=== PATIENT | male | born 1940 | race Caucasian/White ===

== ENCOUNTER 2018-03-09 00:08 | Inpatient (IN) | payer MEDICARE ==
[2018-03-09] MEDS ORDERED: ALBUTEROL 2.5 MG/3 ML NEB SOL ONE (00:27)
[2018-03-09] MEDS ORDERED: IPRATROPIUM BROM 0.5MG/2.5ML ONE (00:27)
--- NOTE | 2018-03-09 00:45 | EDPHYS ---
Physician Documentation [facility] Name: Josue Temple Age: 77 yrs Sex: Male : 1940 Arrival Date: 03/09/2018 Time: 00:10 Bed 3 Private MD: ED Physician Chris Moran HPI: 03/09 00:24 This 77 yrs old Male presents to ER via Wheelchair with complaints of mamie Shortness Of Breath. 00:24 The patient has shortness of breath at rest, with light activity. Onset: The mamie symptoms/episode began/occurred 2 day(s) ago. Duration: The symptoms are continuous, and are steadily getting worse. The patient's shortness of breath has no apparent modifying factors. Associated signs and symptoms: The patient has no apparent associated signs or symptoms. Severity of symptoms: At their worst the symptoms were mild. The patient has not experienced similar symptoms in the past. Historical: - Allergies: 00:26 Banana; ak1 - Home Meds: 00:26 Unable to obtain [Active]; ak1 - PMHx: 00:26 COPD; ak1 - PSHx: 00:26 Unable to obtain; ak1 - Immunization history:: Adult Immunizations unknown. - Social history:: Smoking status: Patient/guardian denies using tobacco, but has a distant history of tobacco abuse. - Family history:: not pertinent. - Ebola Screening: : No symptoms or risks identified at this time. ROS: 00:25 Constitutional: Negative for fever, chills, and weight loss, Eyes: Negative for injury, mamie pain, redness, and discharge, ENT: Negative for injury, pain, and discharge, Neck: Negative for injury, pain, and swelling, Cardiovascular: Negative for chest pain, palpitations, and edema, Abdomen/GI: Negative for abdominal pain, nausea, vomiting, diarrhea, and constipation, Back: Negative for injury and pain, : Negative for injury, bleeding, discharge, and swelling, MS/Extremity: Negative for injury and deformity, Skin: Negative for injury, rash, and discoloration, Neuro: Negative for headache, weakness, numbness, tingling, and seizure, Psych: Negative for depression, anxiety, suicide ideation, homicidal ideation, and hallucinations, Allergy/Immunology: Negative for hives, rash, and allergies, Endocrine: Negative for neck swelling, polydipsia, polyuria, polyphagia, and marked weight changes, Hematologic/Lymphatic: Negative for swollen nodes, abnormal bleeding, and unusual bruising. 00:25 Respiratory: Positive for cough, shortness of breath, wheezing, inspiratory, expiratory. Exam: 00:25 Constitutional: This is a well developed, well nourished patient who is awake, alert, mamie and in no acute distress. Head/Face: Normocephalic, atraumatic. Eyes: Pupils equal round and reactive to light, extra-ocular motions intact. Lids and lashes normal. Conjunctiva and sclera are non-icteric and not injected. Cornea within normal limits. Periorbital areas with no swelling, redness, or edema. ENT: Nares patent. No nasal discharge, no septal abnormalities noted. Tympanic membranes are normal and external auditory canals are clear. Oropharynx with no redness, swelling, or masses, exudates, or evidence of obstruction, uvula midline. Mucous membranes moist. Neck: Trachea midline, no thyromegaly or masses palpated, and no cervical lymphadenopathy. Supple, full range of motion without nuchal rigidity, or vertebral point tenderness. No Meningismus. Chest/axilla: Normal chest wall appearance and motion. Nontender with no deformity. No lesions are appreciated. Cardiovascular: Regular rate and rhythm with a normal S1 and S2. No gallops, murmurs, or rubs. Normal PMI, no JVD. No pulse deficits. Abdomen/GI: Soft, non-tender, with normal bowel sounds. No distension or tympany. No guarding or rebound. No evidence of tenderness throughout. Back: No spinal tenderness. No costovertebral tenderness. Full range of motion. Male : Normal genitalia with no discharge or lesions. Skin: Warm, dry with normal turgor. Normal color with no rashes, no lesions, and no evidence of cellulitis. MS/ Extremity: Pulses equal, no cyanosis. Neurovascular intact. Full, normal range of motion. Neuro: Awake and alert, GCS 15, oriented to person, place, time, and situation. Cranial nerves II-XII grossly intact. Motor strength 5/5 in all extremities. Sensory grossly intact. Cerebellar exam normal. Normal gait. Psych: Awake, alert, with orientation to person, place and time. Behavior, mood, and affect are within normal limits. 00:25 Respiratory: moderate respiratory distress is noted, Respirations: labored breathing, that is moderate, grunting, pursed lip breathing, intercostal retractions, Breath sounds: bronchial sounds, decreased breath sounds, rhonchi, wheezing: expiratory Respiratory rate: 30 Vital Signs: 00:10 BP 142 / 94; Pulse 95; Resp 36; Temp 98.1; Pulse Ox 63% on 3 lpm NC; Weight 68.04 kg ak1 (R); Height 5 ft. 8 in. (172.72 cm) (R); Pain 0/10; 00:18 BP 126 / 87; Pulse 96; Resp 29; Pulse Ox 100% on 80% BiPAP; Pain 0/10; ak1 01:41 BP 108 / 79; Pulse 92; Resp 28; Temp 98.2(TE); Pulse Ox 100% on 30% BiPAP; Pain 0/10; ak1 00:10 Body Mass Index 22.81 (68.04 kg, 172.72 cm) ak1 MDM: 00:17 Patient medically screened. [facility] 00:25 Data reviewed: vital signs, nurses notes, lab test result(s), EKG, radiologic studies, [facility] plain films. 03/09 00:17 Order name: Basic Metabolic Panel [facility] 03/09 00:17 Order name: BNP [facility] 03/09 00:17 Order name: CBC with Diff; Complete Time: 01:20 [facility] 03/09 00:17 Order name: Ckmb [facility] 03/09 00:17 Order name: CPK [facility] 03/09 00:17 Order name: LFT's [facility] 03/09 00:17 Order name: Magnesium [facility] 03/09 00:17 Order name: PT-INR; Complete Time: 01:20 [facility] 03/09 00:17 Order name: Ptt, Activated; Complete Time: 01:20 [facility] 03/09 00:17 Order name: Troponin (emerg Dept Use Only) [facility] 03/09 00:17 Order name: Blood Culture Adult (2) [facility] 03/09 00:17 Order name: ABG; Complete Time: 01:20 [facility] 03/09 00:17 Order name: Lipase [facility] 03/09 00:17 Order name: Procalcitonin [facility] 03/09 00:17 Order name: XRAY Chest (1 view) [facility] 03/09 00:24 Order name: BIPAP [facility] 03/09 00:39 Order name: Flu mamie 03/09 01:16 Order name: Basic Metabolic Panel [facility] 03/09 01:16 Order name: Basic Metabolic Panel [facility] 03/09 01:16 Order name: CBC with Automated Diff [facility] 03/09 01:16 Order name: CBC with Automated Diff [facility] 03/09 01:16 Order name: Sputum Culture [facility] 03/09 01:49 Order name: Urine Dipstick--Ancillary (enter results) [facility] 03/09 00:17 Order name: EKG; Complete Time: 00:18 [facility] 03/09 00:17 Order name: Cardiac monitoring; Complete Time: 00: [facility] 03/09 00:17 Order name: EKG - Nurse/Tech; Complete Time: 00: [facility] 03/09 00:17 Order name: IV Saline Lock; Complete Time: 00: [facility] 03/09 00:17 Order name: Labs collected and sent; Complete Time: 00: [facility] 03/09 00:17 Order name: O2 Per Protocol; Complete Time: 00: [facility] 03/09 00:17 Order name: O2 Sat Monitoring; Complete Time: 00: [facility] 03/09 00:17 Order name: Urine Dipstick-Ancillary (obtain specimen); Complete Time: 01:43 [facility] 03/09 00:49 Order name: CONS Physician Consult [facility] 03/09 01:16 Order name: Regular [facility] Administered Medications: 00:33 Drug: Xopenex 3.75 mg Route: Inhalation; bb 00:33 Drug: AtroVENT Aerosol 0.5 mg Route: Inhalation; bb 00:56 Drug: levofloxacin 500 mg Volume: 100 ml; Route: IVPB; Infused Over: 60 mins; Site: bb left antecubital; 01:45 Follow up: IV Status: Completed infusion ak1 00:56 Drug: SOLU-Medrol 125 mg Route: IVP; Site: left antecubital; bb 01:43 Follow up: Response: No adverse reaction ak1 00:57 Drug: Pepcid 20 mg Route: IVP; Site: left antecubital; bb 01:42 Follow up: Response: No adverse reaction ak1 00:57 Drug: Decadron - Dexamethasone 10 mg Route: IVP; Site: left antecubital; bb 01:42 Follow up: Response: No adverse reaction ak1 01:45 Drug: Magnesium Sulfate 2 grams Route: IVPB; Infused Over: 2 hrs; Site: left ak1 antecubital; 01:54 Follow up: IV Status: Infusion continued upon admission ak1 Disposition: 03/09/18 00:44 Hospitalization ordered by Morteza Layton for Inpatient Admission. Preliminary diagnosis are Chronic obstructive pulmonary disease with (acute) exacerbation, Dyspnea, Dyspnea, unspecified, Hypoxemia. - Bed requested for Telemetry/MedSurg (Inpatient). - Status is Inpatient Admission. ak1 - Condition is Fair. - Problem is new. - Symptoms have improved. UTI on Admission? No Signatures: Dispatcher [employer] EDMS Iftikhar Gutierrez rg2 Barbara Donnelly RN RN Chris Hong MD MD cha Ballard, Brenda, RN RN Yolande Alfaro RN RN ak1 Corrections: (The following items were deleted from the chart) 01:39 00:44 Hospitalization Ordered by Morteza Layton MD for Inpatient Admission. Preliminary diagnosis is Chronic obstructive pulmonary disease with (acute) exacerbation; Dyspnea; Dyspnea, unspecified; Hypoxemia. Bed requested for Telemetry/MedSurg (Inpatient). Status is Inpatient Admission. Condition is Fair. Problem is new. Symptoms have improved. UTI on Admission? No. mamie 02:04 01:39 03/09/2018 00:44 Hospitalization Ordered by Morteza Layton MD for Inpatient ak1 Admission. Preliminary diagnosis is Chronic obstructive pulmonary disease with (acute) exacerbation; Dyspnea; Dyspnea, unspecified; Hypoxemia. Bed requested for Telemetry/MedSurg (Inpatient). Status is Inpatient Admission. Condition is Fair. Problem is new. Symptoms have improved. UTI on Admission? No. kl
--- NOTE | 2018-03-09 00:45 | ER ---
Nurse's Notes [facility] Name: Josue Temple Age: 77 yrs Sex: Male : 1940 Arrival Date: 03/09/2018 Time: 00:10 Bed 3 Private MD: Diagnosis: Chronic obstructive pulmonary disease with (acute) exacerbation;Dyspnea;Dyspnea, unspecified;Hypoxemia Presentation: 03/09 00:21 Presenting complaint: Patient states: SOB "all day" pt uses 3L NC at home. pt at 63% on ak1 home oxygen 3L NC upon arrival to ER3. Transition of care: patient was not received from another setting of care. Onset of symptoms was March 08, 2018. Risk Assessment: Do you want to hurt yourself or someone else? Patient reports no desire to harm self or others. Initial Sepsis Screen: Does the patient meet any 2 criteria? No. Patient's initial sepsis screen is negative. Does the patient have a suspected source of infection? No. Patient's initial sepsis screen is negative. Care prior to arrival: None. 00:21 Method Of Arrival: Wheelchair ak1 00:21 Acuity: HILLARY 2 ak1 Triage Assessment: 00:26 General: Appears distressed, Behavior is calm, cooperative. Pain: Denies pain. EENT: No ak1 signs and/or symptoms were reported regarding the EENT system. Neuro: No deficits noted. Cardiovascular: No deficits noted. Respiratory: Reports shortness of breath at rest on exertion air hunger labored breathing since this morning Airway is patent Respiratory effort is labored, gasping, with nasal flaring, with retractions, Onset: The symptoms/episode began/occurred this morning, the patient has severe shortness of breath. GI: No signs and/or symptoms were reported involving the gastrointestinal system. : No signs and/or symptoms were reported regarding the genitourinary system. Derm: No signs and/or symptoms reported regarding the dermatologic system. Musculoskeletal: No signs and/or symptoms reported regarding the musculoskeletal system. Historical: - Allergies: 00: Banana; ak1 - Home Meds: : Unable to obtain [Active]; ak1 - PMHx: : COPD; ak1 - PSHx: : Unable to obtain; ak1 - Immunization history:: Adult Immunizations unknown. - Social history:: Smoking status: Patient/guardian denies using tobacco, but has a distant history of tobacco abuse. - Family history:: not pertinent. - Ebola Screening: : No symptoms or risks identified at this time. Screenin:31 Abuse screen: Denies threats or abuse. Denies injuries from another. Nutritional ak1 screening: No deficits noted. Tuberculosis screening: No symptoms or risk factors identified. Fall Risk None identified. Assessment: 00:31 Cardiovascular: Rhythm is regular. Respiratory: Airway is patent Breath sounds with ak1 rhonchi. 00:34 Respiratory: Airway is patent. ak1 01:40 Reassessment: Bipap oxygen decreased to 30% by RT. ak1 Vital Signs: 00:10 BP 142 / 94; Pulse 95; Resp 36; Temp 98.1; Pulse Ox 63% on 3 lpm NC; Weight 68.04 kg ak1 (R); Height 5 ft. 8 in. (172.72 cm) (R); Pain 0/10; 00:18 BP 126 / 87; Pulse 96; Resp 29; Pulse Ox 100% on 80% BiPAP; Pain 0/10; ak1 01:41 BP 108 / 79; Pulse 92; Resp 28; Temp 98.2(TE); Pulse Ox 100% on 30% BiPAP; Pain 0/10; ak1 00:10 Body Mass Index 22.81 (68.04 kg, 172.72 cm) ak1 ED Course: 00:10 Patient arrived in ED. rg2 00:17 Chris Moran MD is Attending Physician. mamie 00:18 Arm band placed on Patient placed in an exam room, on a stretcher, on oxygen, on ak1 court recording monitor, on pulse oximetry. EKG completed in triage. Results shown to MD. 00:20 Yolande Cho, RN is Primary Nurse. ak1 00:23 Triage completed. ak1 00:30 Initial lab(s) drawn, by ED staff, sent to lab. First set of blood cultures drawn ak1 Second set of blood cultures drawn EKG done, by ED staff, reviewed by Chris Moran MD X-ray(s) taken. 00:32 Patient has correct armband on for positive identification. Placed in gown. Bed in low ak1 position. Call light in reach. Side rails up X2. Adult w/ patient. manager monitoring on. Pulse ox on. NIBP on. 00:32 Inserted saline lock: in left antecubital area, using aseptic technique. ,using aseptic ak1 technique. placed by Martha Dawson RN Blood collected. O2 via bipap. Ipap 14, Epap 6, rate of 14. 60% oxygen. 00:34 X-ray completed. Portable x-ray completed in exam room. Patient tolerated procedure kw well. 00:35 XRAY Chest (1 view) In Process Unspecified. EDMS 00:40 Morteza Layton MD is Hospitalizing Provider. mamie 00:57 Flu Sent. bb 01:41 No provider procedures requiring assistance completed. Patient admitted, IV remains in ak1 place. Administered Medications: 00:33 Drug: Xopenex 3.75 mg Route: Inhalation; bb 00:33 Drug: AtroVENT Aerosol 0.5 mg Route: Inhalation; bb 00:56 Drug: levofloxacin 500 mg Volume: 100 ml; Route: IVPB; Infused Over: 60 mins; Site: bb left antecubital; 01:45 Follow up: IV Status: Completed infusion ak1 00:56 Drug: SOLU-Medrol 125 mg Route: IVP; Site: left antecubital; bb 01:43 Follow up: Response: No adverse reaction ak1 00:57 Drug: Pepcid 20 mg Route: IVP; Site: left antecubital; bb 01:42 Follow up: Response: No adverse reaction ak1 00:57 Drug: Decadron - Dexamethasone 10 mg Route: IVP; Site: left antecubital; bb 01:42 Follow up: Response: No adverse reaction ak1 01:45 Drug: Magnesium Sulfate 2 grams Route: IVPB; Infused Over: 2 hrs; Site: left ak1 antecubital; 01:54 Follow up: IV Status: Infusion continued upon admission ak1 Outcome: 00:44 Decision to Hospitalize by Provider. mamie 01:42 Condition: improved ak1 01:42 Instructed on the need for admit. 02:01 Admitted to Med/surg accompanied by tech, via stretcher, room 422, with oxygen, with ak1 chart, Report called to Ami SOTOMAYOR 02:04 Patient left the ED. ak1 Signatures: Dispatcher [employer] EDMN Iftikhar Gutierrez 2 Chris Moran MD MD cha Ballard, Brenda, RN RN bb Alem, Caryn kw Krenek, Yolande, RN RN ak1
[2018-03-09] MEDS ORDERED: DEXAMETHASONE 10 MG/ML VIAL ONE (00:50)
[2018-03-09] MEDS ORDERED: METHYLPREDNISOLONE 125 MG INJ ONE (00:50)
[2018-03-09] MEDS ORDERED: FAMOTIDINE 20 MG/2 ML VIAL IV ONE (00:50)
[2018-03-09] MEDS ORDERED: Levofloxacin500mg IV 500 MG/100 ML BAG IV ONE (00:50)
[2018-03-09 00:52] LABS: Absolute Lymphocytes (CBC) 2.7 K/uL (0.7-4.9); Absolute Monocytes 1.8 K/uL (0.1-1.3); Absolute Neutrophil 12.7 K/uL (1.8-8.0); Basophils % 0.5 % (0-1.3); Eosinophils % 0.6 % (0-4.4); Hematocrit 47.1 % (39.6-49.0); Lymphocytes % 15.8 % (15.3-44.8); MCH 30.7 pg (27.0-35.0); MCV 91.3 fL (80-100); MPV 7.2 fL (7.6-11.3); Monocytes % 10.2 % (3.3-12.3); RBC Red Blood Cell Count 5.16 M/uL (4.33-5.43)
[2018-03-09 00:56] LABS: Protime INR 1.05
[2018-03-09 00:57] LABS: Arterial Blood Carboxyhemoglob 1.1 % (0-1.5); Blood Gas Oxyhemoglobin 97.3 % (94-97); Blood O2 Saturation 99.3 % (92-98.5)
[2018-03-09 01:13] LABS: Potassium 3.8 mEq/L (3.6-5.0)
[2018-03-09] MEDS ORDERED: ONDANSETRON 4 MG/2 ML VIAL IV PRN (01:14)
[2018-03-09] MEDS ORDERED: ACETAMINOPHEN 500 MG TAB PO PRN (01:14)
[2018-03-09 01:19] LABS: Albumin 4.5 g/dL (3.2-5.5); Bilirubin Direct 0.2 mg/dL (0-0.2); Bilirubin Total 1.4 mg/dL (0.3-1.2); Magnesium 1.6 mg/dL (1.8-2.5); Protein, Total 7.6 g/dL (6.0-8.3)
--- NOTE | 2018-03-09 01:25 | P.HP ---
Certification for Inpatient Patient admitted to: Inpatient With expected LOS: >2 Midnights Practitioner: I am a practitioner with admitting privileges, knowledge of patient current condition, hospital course, and medical plan of care. Services: Services provided to patient in accordance with Admission requirements found in Title 42 Section 412.3 of the Code of Federal Regulations Patient History Date of Service: 03/09/18 Reason for admission: COPD exacerbation History of Present Illness: Mr Temple is a 77 years old male with history of COPD, on home oxygen 3L by NM, start feeling progressive SOB since yesterday. He also has productive cough with yellowish secretions. He denied fever or chills. No chest pain either. His O2 Sat at home was 61%. At arrival, the patient was dyspneic, with O2 Sat 63% on RA. WBC elevated 17.4K, lactate and procalcitonin are still pending. CXR shows no obvious infiltrate, awaiting radiologist report. - Past Medical/Surgical History -: COPD Past Surgical History: Reviewed- Non-Contributory - Family History Family History: Reviewed- Non-Contributory - Social History Smoking Status: Former smoker Alcohol use: No CD- Drugs: No Place of Residence: Home Review of Systems 10-point ROS is otherwise unremarkable Physical Examination - Physical Exam General: Alert, In no apparent distress HEENT: Atraumatic, PERRLA, Mucous membr. moist/pink, EOMI, Sclerae nonicteric Neck: Supple, 2+ carotid pulse no bruit, No LAD, Without JVD or thyroid abnormality Respiratory: Diminished, Expiratory wheezes, Rhonchi/gurgles Cardiovascular: Regular rate/rhythm, Normal S1 S2 Gastrointestinal: Normal bowel sounds, No tenderness Musculoskeletal: No tenderness Integumentary: No rashes Neurological: Normal speech, Normal strength at 5/5 x4 extr, Normal tone, Normal affect Lymphatics: No axilla or inguinal lymphadenopathy - Studies Laboratory Data (last 24 hrs) 03/09/18 00:15: PT 12.4, INR 1.05, APTT 27.2 03/09/18 00:15: WBC 17.4 H, Hgb 15.8, Hct 47.1, Plt Count 250 03/09/18 00:15: Sodium 133 L, Potassium 3.8, Glucose 157 H, Lipase 28 Assessment and Plan - Problems (Diagnosis) (1) COPD exacerbation Current Visit: Yes Status: Acute - Plan Mr Temple will be admitted to the hospital due to COPD exacerbation. This may be due to early pneumonia vs acute bronchitis. Will order empiric treatement with Rocephin and Azithromycin. Scheduled breathing treatment and IV steroids. Consult Dr Jessica. - Advance Directives Does patient have a Living Will: No Does patient have a Durable POA for Healthcare: No - Code Status/Comfort Care Code Status Assessed: Yes Code Status: Full Code
[2018-03-09] MEDS ORDERED: Magnesium Sulfate 2gm IVPB 2 G/50 ML BAG IV ONE (01:50)
[2018-03-09 01:54] LABS: CKMB Creatine Kinase MB 4.2 ng/ml (0.3-4.0)
[2018-03-09] MEDS ORDERED: POTASSIUM 25 MEQ EFFERV TAB PO ONE (02:45)
[2018-03-09] MEDS: NA CHLORIDE 0.9% 1,000 ML IV SCH ×2 (02:46→11:16)
[2018-03-09] MEDS: IPRATROPIUM BROM 0.5MG/2.5ML NEB SCH ×4 (03:35→16:11)
[2018-03-09] MEDS: ALBUTEROL 2.5 MG/3 ML NEB SOL NEB SCH ×4 (03:35→16:11)
[2018-03-09 04:26] VITALS: BMI 23.1
[2018-03-09] MEDS: METHYLPREDNISOLONE 40 MG INJ IV SCH ×3 (05:11→17:33)
--- NOTE | 2018-03-09 06:13 | EKG ---
Test Date: 2018-03-09 Test Time: 00:16:29 Home Service Consultant: CATRINA MEASUREMENT RESULTS: Intervals: Rate: 97 NM: 142 QRSD: 82 QT: 318 QTc: 403 [place]: P: 81 NM: 142 QRS: 85 T: 70 INTERPRETIVE STATEMENTS: Sinus rhythm with premature atrial complexes Nonspecific ST abnormality Abnormal ECG No previous ECG available for comparison Electronically Signed On 03-09-18 06:12:51 CDT by Roosevelt Cunningham
[2018-03-09 07:01] LABS: Urine Appearance CLEAR; Urine Bilirubin NEGATIVE (NEG); Urine Blood NEGATIVE (NEG); Urine Color YELLOW; Urine Glucose NEGATIVE (NEG); Urine Protein NEGATIVE (NEG)
[2018-03-09 07:04] LABS: Urine Microscopic Reflex NO UMIC
--- NOTE | 2018-03-09 08:52 | RAD REPORT ---
EXAM DESCRIPTION: [place] Single View03/09/2018 12:37 am CLINICAL HISTORY: Shortness of breath COMPARISON: none FINDINGS: The lungs are markedly hyperaerated consistent with COPD. The lungs appear clear of acute infiltrate. The heart is normal size IMPRESSION: COPD without visualization of an acute abnormality
[2018-03-09] MEDS ORDERED: CEFTRIAXONE/SWI 1gm 1 GM/10 ML SYR IV SCH (09:00)
[2018-03-09] MEDS ORDERED: AZITHROMYCIN IV 500 MG in NA CHLORIDE 0.9% 250 ML IVPB SCH (09:00)
[2018-03-09] MEDS ORDERED: CEFTRIAXONE 1 GM/NS 50 ML 1 GM/50 ML BAG IV SCH (09:00)
--- NOTE | 2018-03-09 14:22 | P.CNS ---
Date of Consult: 03/09/18 Reason for Consult: COPD exacerbation Chief Complaint: COPD exacerbation History of Present Illness: Patient is 77 years of age well known to me with a history of COPD admitted with acute onset of shortness of breath and was admitted to the emergency room he is currently doing better is compliant with his nebulizers at home denies any cough sputum hemoptysis or chest pain Allergies banana Allergy (Mild, Verified 03/09/18 02:47) Itching Home Medications: Albuterol Neb [Proventil 0.083% Neb Soln] 3 ml IH Q6HP PRN 03/09/18 Albuterol Sulfate [Proair Respiclick] 2 puff IH QIDP PRN 03/09/18 Budesonide/Formoterol Fumarate [Symbicort 80-4.5 Mcg Inhaler] 2 puff IH BID Cholecalciferol (Vitamin D3) [Vitamin D3] 5,000 unit PO DAILY 03/09/18 Clopidogrel Bisulfate [Plavix] 75 mg PO DAILY 03/09/18 Ipratropium Ronan 1 vial IH BID 03/09/18 Labetalol HCl [Trandate] 200 mg PO BID 03/09/18 Pravastatin Sodium 40 mg PO DAILY 03/09/18 hydroCHLOROthiazide [Hydrochlorothiazide] 25 mg PO DAILY 03/09/18 - Past Medical/Surgical History Diabetic: No -: COPD -: Tubes tied -: Leg surgery - Family History Father Medical History: Cancer Brother Medical History: Cancer - Social History Smoking Status: Former smoker Alcohol use: No CD- Drugs: No Caffeine use: Yes Place of Residence: Home Review of Systems 10-point ROS is otherwise unremarkable General: Weakness Respiratory: Shortness of Breath Physical Examination Temp Pulse Resp BP Pulse Ox 97.3 F 70 16 99/65 97 03/09/18 11:47 03/09/18 11:47 03/09/18 11:47 03/09/18 11:47 03/09/18 11:47 General: Alert, Oriented x3 HEENT: Atraumatic Neck: Supple Respiratory: Expiratory wheezes Cardiovascular: No edema, Normal S1 S2 Gastrointestinal: Normal bowel sounds, Soft and benign Laboratory Data (last 24 hrs) 03/09/18 00:15: PT 12.4, INR 1.05, APTT 27.2 03/09/18 00:15: WBC 17.4 H, Hgb 15.8, Hct 47.1, Plt Count 250 03/09/18 00:15: B-Natriuretic Peptide 72 03/09/18 00:15: Sodium 133 L, Potassium 3.8, BUN 13, Creatinine 0.90, Glucose 157 H, Magnesium 1.6 L, Total Bilirubin 1.4 H, AST 25, ALT 17, Alkaline Phosphatase 35 L, Lipase 28 - Problems (1) COPD exacerbation Onset Date: 03/09/18 Current Visit: Yes Status: Acute Plan: Patient is 77 years of age admitted with COPD exacerbation is compliant with his medications labs reviewed white count is mildly elevated patient was mildly hypercapnic chest x-ray shows COPD changes patient's vital signs are all stable oxygenation satisfactory he has improved significantly plan to discharge home he has to go home on some prednisone 20 mg twice a day for 7-10 days taper not required follow up with me in 2 week
[2018-03-09 16:36] VITALS: O2SAT 97
[2018-03-09 17:05] VITALS: BP 123/72; TEMP 97.2
[2018-03-09] MEDS ORDERED: LABETALOL HCL 100 MG TAB PO SCH (21:00)
[2018-03-09] MEDS ORDERED: ATORVASTATIN 10 MG TAB PO SCH (21:00)
[2018-03-10] MEDS ORDERED: hydroCHLOROthiazide 25 MG TAB PO SCH (09:00)
[2018-03-10] MEDS ORDERED: VITAMIN D 5,000 UNIT CAP PO SCH (09:00)
[2018-03-10] MEDS ORDERED: CLOPIDOGREL 75 MG TABLET PO SCH (09:00)
== END 2018-03-09 17:53 | disposition home or self-care (01) | DRG 192 ==
LOC: ER 00:08 → ERHOLD 00:46 → 4TH 01:48
PROVIDERS: ADMIT Internal Medicine; ATTEND Family Medicine
PROC: 5A09357 Assistance with Respiratory Ventilation, Less than 24 Consecutive Hours, Continuous Positive Airway Pressure (ICD-10-PCS; principal; 2018-03-09)
DX: J44.1 Chronic obstructive pulmonary disease with (acute) exacerbation (principal); R09.02 Hypoxemia; Z87.891 Personal history of nicotine dependence; Z99.81 Dependence on supplemental oxygen; Z91.018 Allergy to other foods
CPT/HCPCS: 36415; 71045; 80048; 80076; 81003; 82550; 82553; 82805; 83690; 83735; 83880; 84145; 84484; 85025; 85610; 85730; 87040; 87070; 87184; 87205; 87804; 93005; 94640; 94660; 96365; 96375; 97163; 99285; J0456; J0696; J1100; J2920; J2930; J3475; J7030

== ENCOUNTER 2018-06-30 05:29 | Inpatient (IN) | payer MEDICARE ==
[2018-06-30] MEDS ORDERED: ALBUTEROL 2.5 MG/3 ML NEB SOL ONE (05:52)
[2018-06-30] MEDS ORDERED: IPRATROPIUM BROM 0.5MG/2.5ML ONE (05:52)
[2018-06-30] MEDS ORDERED: METHYLPREDNISOLONE 125 MG INJ ONE (05:59)
[2018-06-30 06:06] LABS: Absolute Lymphocytes (CBC) 2.2 K/uL (0.7-4.9); Absolute Monocytes 1.8 K/uL (0.1-1.3); Absolute Neutrophil 11.2 K/uL (1.8-8.0); Basophils % 0.3 % (0-1.3); Eosinophils % 0.4 % (0-4.4); Hematocrit 41.1 % (39.6-49.0); Lymphocytes % 14.4 % (15.3-44.8); MCH 31.9 pg (27.0-35.0); MCV 92.9 fL (80-100); MPV 7.6 fL (7.6-11.3); Monocytes % 11.6 % (3.3-12.3); RBC Red Blood Cell Count 4.42 M/uL (4.33-5.43)
[2018-06-30 06:15] LABS: Protime INR 1.16
[2018-06-30 06:23] LABS: Arterial Blood Carboxyhemoglob 0.9 % (0-1.5); Blood O2 Saturation 98.8 % (92-98.5)
[2018-06-30] MEDS ORDERED: CEFTRIAXONE/SWI 1gm 1 GM/10 ML SYR ONE (06:30)
[2018-06-30 06:39] LABS: ALT/SGPT 30 U/L (12-78); AST/SGOT 18 U/L (15-37); Albumin 3.3 g/dL (3.4-5.0); Alkaline Phosphatase 40 U/L (45-117); BUN Blood Urea Nitrogen 10 mg/dL (7-18); Bicarbonate 35 mmol/L (21-32); Bilirubin Direct 0.3 mg/dL (0-0.2); Bilirubin Total 0.9 mg/dL (0.2-1.0); Glucose Level 180 mg/dL (74-106); Magnesium 1.8 mg/dL (1.8-2.4); NT PRO-BNP 290 pg/mL (<450); Potassium 3.7 mmol/L (3.5-5.1); Sodium Level 133 mmol/L (136-145); Troponin (Emerg Dept Use Only) < 0.02 ng/mL (0.0-0.045)
[2018-06-30] MEDS ORDERED: NA CHLORIDE 0.9% 500 ML ONE (06:45)
[2018-06-30 07:47] LABS: Urine Bacteria <20 /HPF (NONE SEEN); Urine Culture Reflex Order NOT NEEDED; Urine RBC <5 /HPF (NONE SEEN)
[2018-06-30 07:48] LABS: Urine Mucus 4+ /HPF (NONE SEEN)
--- NOTE | 2018-06-30 07:48 | EKG ---
Test Date: 2018-06-30 Test Time: 05:47:25 Account Solutions Analyst: SYDNEE MEASUREMENT RESULTS: Intervals: Rate: 91 TN: 132 QRSD: 90 QT: 330 QTc: 405 Mobile: P: 77 TN: 132 QRS: 77 T: 52 INTERPRETIVE STATEMENTS: Normal sinus rhythm Normal ECG Compared to ECG 03/09/2018 00:16:29 Atrial premature complex(es) no longer present ST (T wave) deviation no longer present Electronically Signed On 06-30-18 07:48:34 CDT by Jarred Streeter
--- NOTE | 2018-06-30 09:01 | EDPHYS ---
Physician Documentation [facility] Name: Josue Temple Age: 77 yrs Sex: Male : 1940 Arrival Date: 06/30/2018 Time: 05:30 Bed 2 Private MD: ED Physician Yrn Baer HPI: 06/30 07:00 This 77 yrs old Male presents to ER via Wheelchair with complaints of pm1 Breathing Difficulty. 07:00 The patient has shortness of breath at rest. Onset: The symptoms/episode began/occurred pm1 3 day(s) ago. Duration: The symptoms are continuous, and are steadily getting worse. The patient's shortness of breath is aggravated by nothing, is alleviated by nothing. Associated signs and symptoms: Pertinent positives: productive cough, Possible chills, subjective fever. 07:00 Associated signs and symptoms: Pertinent positives: chest pain, Pertinent negatives: pm1 diaphoresis, nausea, vomiting. Severity of symptoms: in the emergency department the symptoms are worse. The patient has experienced similar episodes in the past, a few times. The patient has not recently seen a physician, the patient's primary care provider is Dr. Carrera. Historical: - Allergies: 09:25 Banana; ph - PMHx: 09:25 COPD; ph - Immunization history:: Adult Immunizations up to date. - Ebola Screening: : No symptoms or risks identified at this time. - Social history:: Smoking status: Patient/guardian denies using tobacco, the patient reports quitting approximately 6 years ago. ROS: 07:00 Eyes: Negative for injury, pain, redness, and discharge, ENT: Negative for injury, pm1 pain, and discharge, Neck: Negative for injury, pain, and swelling. 07:00 Abdomen/GI: Negative for abdominal pain, nausea, vomiting, diarrhea, and constipation, Back: Negative for injury and pain, : Negative for injury, bleeding, discharge, and swelling, MS/Extremity: Negative for injury and deformity, Skin: Negative for injury, rash, and discoloration, Neuro: Negative for headache, weakness, numbness, tingling, and seizure. 07:00 Constitutional: Positive for chills, fever, Negative for body aches, poor PO intake. 07:00 Cardiovascular: Positive for chest pain, Negative for edema, orthopnea, palpitations. 07:00 Respiratory: Positive for cough, with yellow sputum, shortness of breath, wheezing. Exam: 07:00 Constitutional: This is a well developed, well nourished patient who is awake, alert, pm1 and in no acute distress. Head/Face: Normocephalic, atraumatic. Eyes: Pupils equal round and reactive to light, extra-ocular motions intact. Lids and lashes normal. Conjunctiva and sclera are non-icteric and not injected. Cornea within normal limits. Periorbital areas with no swelling, redness, or edema. ENT: Nares patent. No nasal discharge, no septal abnormalities noted. Tympanic membranes are normal and external auditory canals are clear. Oropharynx with no redness, swelling, or masses, exudates, or evidence of obstruction, uvula midline. Mucous membranes moist. Neck: Trachea midline, no thyromegaly or masses palpated, and no cervical lymphadenopathy. Supple, full range of motion without nuchal rigidity, or vertebral point tenderness. No Meningismus. Chest/axilla: Normal chest wall appearance and motion. Nontender with no deformity. No lesions are appreciated. Cardiovascular: Regular rate and rhythm with a normal S1 and S2. No gallops, murmurs, or rubs. Normal PMI, no JVD. No pulse deficits. 07:00 Abdomen/GI: Soft, non-tender, with normal bowel sounds. No distension or tympany. No guarding or rebound. No evidence of tenderness throughout. Back: No spinal tenderness. No costovertebral tenderness. Full range of motion. Skin: Warm, dry with normal turgor. Normal color with no rashes, no lesions, and no evidence of cellulitis. MS/ Extremity: Pulses equal, no cyanosis. Neurovascular intact. Full, normal range of motion. 07:00 Respiratory: the patient does not display signs of respiratory distress, Patient placed on Bipap prior to my evaluation, Respirations: normal, Breath sounds: wheezing: expiratory is heard diffusely. 07:00 Neuro: Orientation: is normal, Mentation: is normal, Motor: moves all fours, Sensation: is normal, no obvious gross deficits. Vital Signs: 05:35 BP 149 / 123; Pulse 91; Resp 29; Temp 99.9(O); Pulse Ox 69% on 2 lpm NC; Weight 72.12 cc3 kg; Height 5 ft. 10 in. (177.80 cm); 06:20 BP 108 / 76; Pulse 94; Resp 24; Pulse Ox 96% on BiPAP; jd3 07:52 BP 104 / 76; Pulse 84; Resp 22; Pulse Ox 93% on BiPAP; ph 08:45 BP 109 / 75; Pulse 82; Resp 22; Temp 98.7; Pulse Ox 94% on BiPAP; ph 09:45 BP 108 / 74; Pulse 80; Resp 18; Pulse Ox 95% on BiPAP; ph 10:56 BP 107 / 71; Pulse 76; Resp 18; Pulse Ox 94% on BiPAP; ph 05:35 Body Mass Index 22.81 (72.12 kg, 177.80 cm) cc3 MDM: 06:09 Patient medically screened. pm1 08:58 Data reviewed: vital signs. Data interpreted: Pulse oximetry: on Bipap is 96 %. pm1 Interpretation: normal. 08:58 Counseling: I had a detailed discussion with the patient and/or guardian regarding: the pm1 historical points, exam findings, and any diagnostic results supporting the discharge/admit diagnosis, lab results, radiology results, the need for further work-up and treatment in the hospital. 09:35 Physician consultation: Genesis Beasley MD was called at 09:35, was contacted at pm1 09:35, regarding admission, patient's condition, and will see patient. 06/30 05:45 Order name: Basic Metabolic Panel; Complete Time: 06:43 06/30 05:45 Order name: CBC with Diff; Complete Time: 06:16 06/30 05:45 Order name: LFT's; Complete Time: 06:43 06/30 05:45 Order name: Magnesium; Complete Time: 06:43 06/30 05:45 Order name: NT PRO-BNP; Complete Time: 06:43 06/30 05:45 Order name: PT-INR; Complete Time: 06:26 06/30 05:45 Order name: Troponin (emerg Dept Use Only); Complete Time: 06:43 06/30 05:46 Order name: ABG; Complete Time: 06:43 06/30 06:16 Order name: Blood Culture Adult (2) pm1 06/30 06:18 Order name: Urine Microscopic Only; Complete Time: 07:51 pm1 06/30 06:18 Order name: Urine Culture pm1 06/30 06:29 Order name: Lactate; Complete Time: 07:51 ea 06/30 06:44 Order name: Procalcitonin pm1 06/30 06:44 Order name: Procalcitonin; Complete Time: 07:55 EDMS 06/30 05:44 Order name: XRAY CXR (1 view); Complete Time: 09:34 cc 06/30 05:45 Order name: EKG; Complete Time: 05:46 bb 06/30 05:45 Order name: Cardiac monitoring; Complete Time: 05:56 bb 06/30 05:45 Order name: EKG - Nurse/Tech; Complete Time: 05:56 bb 06/30 05:45 Order name: IV Saline Lock; Complete Time: 05:56 bb 06/30 05:45 Order name: Labs collected and sent; Complete Time: 05:56 bb 06/30 05:45 Order name: O2 Per Protocol; Complete Time: 05:56 bb 06/30 05:46 Order name: BIPAP bb 06/30 06:56 Order name: Urine Dipstick--Ancillary (enter results) eb 06/30 07:54 Order name: Flu; Complete Time: 09:28 pm1 06/30 05:45 Order name: O2 Sat Monitoring; Complete Time: 05:56 bb 06/30 06:18 Order name: Urine Dipstick-Ancillary (obtain specimen); Complete Time: 06:55 pm1 Administered Medications: 05:55 Drug: SOLU-Medrol 125 mg Route: IVP; Site: left hand; ea 06:30 Follow up: Response: No adverse reaction; Marked relief of symptoms ea 05:55 Drug: Albuterol - atroVENT (3:1) (2.5 mg - 0.5 mg) 3 ml Route: Nebulizer; ea 06:55 Follow up: Response: No adverse reaction jd3 06:28 Drug: Rocephin 1 grams Route: IV; Rate: calculated rate; Site: left antecubital; ea 06:56 Follow up: Response: No adverse reaction; IV Status: Completed infusion jd3 06:42 Drug: NS 0.9% 500 ml Route: IV; Rate: bolus; Site: left antecubital; jd3 08:00 Follow up: Response: No adverse reaction; IV Status: Completed infusion ph 09:19 Drug: Zithromax 500 mg Route: IVPB; Infused Over: 1 hrs; Site: left antecubital; ph 10:30 Follow up: Response: No adverse reaction; IV Status: Completed infusion ph Disposition: 19:02 Co-signature as Attending Physician, Yrn Baer MD. pkl Disposition: 06/30/18 09:00 Hospitalization ordered by Genesis Beasley for Inpatient Admission. Preliminary diagnosis is Chronic obstructive pulmonary disease with (acute) exacerbation. - Bed requested for Telemetry/MedSurg (Inpatient). - Status is Inpatient Admission. ph - Condition is Stable. - Problem is new. - Symptoms have improved. UTI on Admission? No Signatures: Dispatcher [employer] EDMS Yrn Baer MD MD pkl Bernadette Collins RN RN bb Anushka Lockwood RN RN ph Keven Giron, [employer] pm1 Breonna Grier RN RN hb Maris Colon RN RN ea Davies, Jonathon, RN RN jd3 Botello, Elizabeth eb Cordel, Charlene cc3 Corrections: (The following items were deleted from the chart) 06:12 05:46 Chest Single View+RAD.RAD.BRZ ordered. EDOK EDMS 09:24 09:00 Hospitalization Ordered by Genesis Beasley MD for Inpatient Admission. hb Preliminary diagnosis is Chronic obstructive pulmonary disease with (acute) exacerbation. Bed requested for Telemetry/MedSurg (Inpatient). Status is Inpatient Admission. Condition is Stable. Problem is new. Symptoms have improved. UTI on Admission? No. pm1 11:10 09:24 06/30/2018 09:00 Hospitalization Ordered by Genesis Beasley MD for Inpatient eb Admission. Preliminary diagnosis is Chronic obstructive pulmonary disease with (acute) exacerbation. Bed requested for Telemetry/MedSurg (Inpatient). Status is Inpatient Admission. Condition is Stable. Problem is new. Symptoms have improved. UTI on Admission? No. hb 11:27 11:10 06/30/2018 09:00 Hospitalization Ordered by Genesis Beasley MD for Inpatient ph Admission. Preliminary diagnosis is Chronic obstructive pulmonary disease with (acute) exacerbation. Bed requested for Telemetry/MedSurg (Inpatient). Status is Inpatient Admission. Condition is Stable. Problem is new. Symptoms have improved. UTI on Admission? No. eb
--- NOTE | 2018-06-30 09:01 | ER ---
Nurse's Notes [facility] Name: Josue Temple Age: 77 yrs Sex: Male : 1940 Arrival Date: 06/30/2018 Time: 05:30 Bed 2 Private MD: Diagnosis: Chronic obstructive pulmonary disease with (acute) exacerbation Presentation: 06/30 05:30 Presenting complaint: Patient states: breathing difficulty since 3 days. Transition of cc3 care: patient was not received from another setting of care. Onset of symptoms was June 28, 2018. Risk Assessment: Do you want to hurt yourself or someone else? Patient reports no desire to harm self or others. Initial Sepsis Screen: Does the patient meet any 2 criteria? No. Patient's initial sepsis screen is negative. Does the patient have a suspected source of infection? No. Patient's initial sepsis screen is negative. Care prior to arrival: None. 05:30 Method Of Arrival: Wheelchair cc3 05:30 Acuity: HILLARY 2 cc3 Triage Assessment: 05:30 General: Appears distressed, uncomfortable, Behavior is cooperative, anxious. Pain: cc3 Denies pain. EENT: No signs and/or symptoms were reported regarding the EENT system. Neuro: Level of Consciousness is awake, alert, obeys commands, Oriented to person, place, time, situation, Appropriate for age. Cardiovascular: Denies chest pain, shortness of breath. Respiratory: Reports difficulty of breathing since 3 days Onset: The symptoms/episode began/occurred since 3 days, the patient has severe shortness of breath. GI: Abdomen is round non-distended. : No signs and/or symptoms were reported regarding the genitourinary system. Derm: would over the right elbow as patient rubbed it through the door as per the patient's son. Musculoskeletal: Circulation, motion, and sensation intact. Range of motion: intact in all extremities. Historical: - Allergies: 09:25 Banana; ph - PMHx: 09:25 COPD; ph - Immunization history:: Adult Immunizations up to date. - Ebola Screening: : No symptoms or risks identified at this time. - Social history:: Smoking status: Patient/guardian denies using tobacco, the patient reports quitting approximately 6 years ago. Screenin:30 Abuse screen: Denies threats or abuse. Denies injuries from another. Nutritional cc3 screening: No deficits noted. Tuberculosis screening: No symptoms or risk factors identified. Fall Risk Ambulatory Aid- None/Bed Rest/Nurse Assist (0 pts). Gait- Normal/Bed Rest/Wheelchair (0 pts) Mental Status- Oriented to own ability (0 pts). Assessment: 05:45 General: Appears uncomfortable, Behavior is restless. General: Respiratory at bedside ea placing pt on BiPAP. . Pain: Denies pain. Neuro: Level of Consciousness is awake, alert, obeys commands, Oriented to person, place, time. Cardiovascular: Heart tones S1 S2 present Patient's skin is warm and dry. Cardiovascular: Rhythm is sinus rhythm. Respiratory: Airway is patent Respiratory effort is labored, Respiratory pattern is regular, tachypnea Breath sounds are diminished bilaterally. GI: Abdomen is non-distended. Derm: Skin is pink, warm \T\ dry. 06:20 Reassessment: Patient and/or family updated on plan of care and expected duration. Pain jd3 level reassessed. Patient is alert, oriented x 3, equal unlabored respirations, skin warm/dry/pink. noted decrease work for breathing. 07:21 Reassessment: Brother Abiodun Temple # . ph 07:52 Reassessment: Patient appears in no apparent distress at this time. Patient and/or ph family updated on plan of care and expected duration. Pain level reassessed. Pt asleep w/ even, unlabored respirations, bi-pap in place awaiting room assignment. 09:00 Reassessment: Patient appears in no apparent distress at this time. No changes from ph previously documented assessment. Patient and/or family updated on plan of care and expected duration. Pain level reassessed. Patient is alert, oriented x 3, equal unlabored respirations, skin warm/dry/pink. 10:00 Reassessment: Patient appears in no apparent distress at this time. No changes from ph previously documented assessment. Patient and/or family updated on plan of care and expected duration. Pain level reassessed. Patient is alert, oriented x 3, equal unlabored respirations, skin warm/dry/pink. 11:25 Reassessment: Patient appears in no apparent distress at this time. Patient and/or ph family updated on plan of care and expected duration. Pain level reassessed. Patient is alert, oriented x 3, equal unlabored respirations, skin warm/dry/pink. Report called to BRAN Johnson, pt placed on NC \T\ 2 L and taken to inpatient room, accompanied by RT and geospatial information technologist. Vital Signs: 05:35 BP 149 / 123; Pulse 91; Resp 29; Temp 99.9(O); Pulse Ox 69% on 2 lpm NC; Weight 72.12 cc3 kg; Height 5 ft. 10 in. (177.80 cm); 06:20 BP 108 / 76; Pulse 94; Resp 24; Pulse Ox 96% on BiPAP; jd3 07:52 BP 104 / 76; Pulse 84; Resp 22; Pulse Ox 93% on BiPAP; ph 08:45 BP 109 / 75; Pulse 82; Resp 22; Temp 98.7; Pulse Ox 94% on BiPAP; ph 09:45 BP 108 / 74; Pulse 80; Resp 18; Pulse Ox 95% on BiPAP; ph 10:56 BP 107 / 71; Pulse 76; Resp 18; Pulse Ox 94% on BiPAP; ph 05:35 Body Mass Index 22.81 (72.12 kg, 177.80 cm) cc3 ED Course: 05:30 Patient arrived in ED. ds1 05:30 Patient has correct armband on for positive identification. Placed in gown. Bed in low cc3 position. Call light in reach. Adult w/ patient. 05:30 cd storage and materials make up helper on. Pulse ox on. NIBP on. Notified ED physician of vital signs. cc3 05:35 Arm band placed on left wrist. cc3 05:40 Inserted saline lock: 20 gauge in left antecubital area, using aseptic technique. Blood cc3 collected. 05:45 Report given to BRAN Pollock. cc3 05:50 Inserted saline lock: 20 gauge in right antecubital area, using aseptic technique. ea Blood collected. placed by Estefani SOTOMAYOR. 05:55 Maris Colon RN is Primary Nurse. ea 05:59 Triage completed. cc3 06:04 X-ray completed. Portable x-ray completed in exam room. sw 06:05 XRAY CXR (1 view) In Process Unspecified. EDMS 06:08 Keven Giron NP is PHCP. pm1 06:08 Yrn Baer MD is Attending Physician. pm1 06:55 Procalcitonin Sent. jd3 06:55 Lactate Sent. jd3 08:59 Genesis Beasley MD is Hospitalizing Provider. pm1 09:25 No provider procedures requiring assistance completed. Patient admitted, IV remains in ph place. Administered Medications: 05:55 Drug: SOLU-Medrol 125 mg Route: IVP; Site: left hand; ea 06:30 Follow up: Response: No adverse reaction; Marked relief of symptoms ea 05:55 Drug: Albuterol - atroVENT (3:1) (2.5 mg - 0.5 mg) 3 ml Route: Nebulizer; ea 06:55 Follow up: Response: No adverse reaction jd3 06:28 Drug: Rocephin 1 grams Route: IV; Rate: calculated rate; Site: left antecubital; ea 06:56 Follow up: Response: No adverse reaction; IV Status: Completed infusion jd3 06:42 Drug: NS 0.9% 500 ml Route: IV; Rate: bolus; Site: left antecubital; jd3 08:00 Follow up: Response: No adverse reaction; IV Status: Completed infusion ph 09:19 Drug: Zithromax 500 mg Route: IVPB; Infused Over: 1 hrs; Site: left antecubital; ph 10:30 Follow up: Response: No adverse reaction; IV Status: Completed infusion ph Outcome: 09:00 Decision to Hospitalize by Provider. pm1 11:26 Admitted to Tele accompanied by tech, via stretcher, room 220, with oxygen, with chart, ph Report called to Elizabeth SOTOMAYOR 11:26 Condition: improved 11:26 Instructed on the need for admit. 11:27 Patient left the ED. ph Signatures: Dispatcher [employer] Christa Shafer ds1 Anushka Lockwood RN RN ph Warren, Shannon sw Marinas, Patrick, NP OXYACETYLENE CUTTER pm1 Maris Colon RN RN ea Davies, Jonathon, RN RN jd3 Cordel, Charlene cc3
[2018-06-30] MEDS ORDERED: AZITHROMYCIN 500 MG/250 ML BAG ONE (09:20)
--- NOTE | 2018-06-30 09:32 | RAD REPORT ---
EXAM DESCRIPTION: [place] Single View06/30/2018 6:05 am CLINICAL HISTORY: Shortness of breath COMPARISON: February 2018 FINDINGS: The lungs are markedly hyperaerated consistent with COPD The lungs appear clear of acute infiltrate. The heart is normal size
[2018-06-30] MEDS ORDERED: ACETAMINOPHEN 650MG/RECT SUPP PR PRN (12:22)
[2018-06-30] MEDS ORDERED: ONDANSETRON 4 MG (ODT) TAB PO PRN (12:22)
[2018-06-30 12:31] VITALS: BMI 22.4
[2018-06-30] MEDS: Levofloxacin 750mg IV 750 MG/150 ML BAG IV SCH (14:38)
--- NOTE | 2018-06-30 15:03 | HP ---
Date of Admission: 06/30/2018 Reason For Admission: Progressive shortness of breath over the last 3 days. History Of Present Illness: This is 77-year-old gentleman with history of multiple medical problems including COPD, hypertension, hyperlipidemia, ? heart disease, who presented with progressive shortne ss of breath even at rest. Started 3 days ago. There is no aggravating or alleviating factor. The patient reported productive cough with chills, subjective fever. In the ER, he was evaluated and his temperature max was 99.9, was initially placed on BiPAP and his O2 saturation was up to 96%. Chest x-ray done showed normal except for COPD, emphysema signs. The patient was admitted for presumed OCEANOLOGIST D exacerbation. Currently, he is lying in bed. He looks comfortable. He is on oxygen. He has no c hest pain, no abdominal pain. He lives with his brother. Review of Systems: Otherwise as below. Past Medical History: Significant for hypertension, hyperlipidemia, questionable coronary artery dis ease. Past Surgery History: According to the patient, none. Social History: The patient lives with his brother. He is a . He does not drink, smoke, use any drugs. He is to smoke until 5 years ago, 1 pack a day for more than 40 years. Family History: Both parents . He does not recall really etiology of . Home Medication: Does not available yet. The patient does not remember, but according to his last d ischarge note, he was on albuterol, Symbicort, Plavix, ipratropium, labetalol, pravastatin, and hydro chlorothiazide. Review of Systems: Denies any fever, chills, night sweats, dizziness, lightheaded, headache now, but have some low-grade temperature at home. He has cough, productive sputum, shortness of breath. No chest pain, palpitat ions, PND, orthopnea, but he does have dyspnea on exertion. He has known dizziness. He has no nause a, vomiting, abdominal pain, change in bowel movement, diarrhea, constipation, dysuria, frequency, ur gency, hematuria. There is no history of depression, anxiety, seizure, or stroke. Physical Examination: Vital Signs: Blood pressure is 109/67, respiratory rate 18, pulse 78, temperature 97. General: He is alert, oriented x3. He does not look in any distress. HEENT: Atraumatic, normocephalic. PERRLA. Oral mucosa is moist. Neck: Supple. No JVD. Chest: Expiratory wheezing throughout both lungs. Heart: Regular rate and rhythm. S1, S2 normal. No gallop or murmur. Abdomen: Soft, nontender. No masses. No hepatosplenomegaly. Obese positive bowel sounds. Extremities: No clubbing, cyanosis, or edema. No calf tenderness. Neurologic: Grossly intact. Laboratory Data: Today, showed CBC with white blood cells 15.2, MCV of 92.9, platelet 261. ABG show s normal pH. Chemistry within normal except for sodium 133, chloride 94, GFR 72, creatinine of 1, gl ucose 180. Alkaline phosphatase of 40, albumin 3.3. Chest x-ray, normal. Assessment And Plan: A 77-year-old gentleman with history of hyperlipidemia, hypertension, ? heart d isease, presented with progressive shortness of breath. 1.Chronic obstructive pulmonary disease exacerbation, acute on chronic. We will place patient on ox ygen. He is off BiPAP now. We will continue nebulizer every [address] patient on Solu -Medrol 40 every 8 hours. He will be on Levaquin 750 once a day. 2.History of hypertension. We will continue hydrochlorothiazide and labetalol. 3.History of hyperlipidemia. The patient will be resumed on statin as before. 4.? coronary artery disease. The patient will be placed on Plavix until we get the list of his medi cation. 5.Deep vein thrombosis prophylaxis on Lovenox. 6.Discharge plan probably in the next 48 hours as long as the patient improves. FLAQUITO Voice ID: [id number]
[2018-06-30] MEDS: ALBUTEROL 2.5 MG/3 ML NEB SOL NEB SCH ×3 (15:14→23:10)
[2018-06-30] MEDS: IPRATROPIUM BROM 0.5MG/2.5ML NEB SCH ×3 (15:14→23:10)
[2018-06-30] MEDS ORDERED: POTASSIUM 25 MEQ EFFERV TAB PO ONE (15:34)
[2018-06-30] MEDS: METHYLPREDNISOLONE 40 MG INJ IV SCH (16:35)
[2018-06-30] MEDS: ATORVASTATIN 10 MG TAB PO SCH (21:05)
[2018-06-30] MEDS: LABETALOL HCL 100 MG TAB PO SCH (21:06)
[2018-07-01] MEDS: METHYLPREDNISOLONE 40 MG INJ IV SCH ×3 (00:16→17:10)
[2018-07-01] MEDS: ALBUTEROL 2.5 MG/3 ML NEB SOL NEB SCH ×5 (03:49→20:11)
[2018-07-01] MEDS: IPRATROPIUM BROM 0.5MG/2.5ML NEB SCH ×5 (03:49→20:11)
[2018-07-01 06:23] LABS: Absolute Lymphocytes (CBC) 1.1 K/uL (0.7-4.9); Absolute Monocytes 0.5 K/uL (0.1-1.3); Absolute Neutrophil 13.1 K/uL (1.8-8.0); Basophils % 0.1 % (0-1.3); Hematocrit 35.3 % (39.6-49.0); Lymphocytes % 7.4 % (15.3-44.8); MCH 31.6 pg (27.0-35.0); MPV 7.4 fL (7.6-11.3); Monocytes % 3.6 % (3.3-12.3); RBC Red Blood Cell Count 3.88 M/uL (4.33-5.43)
[2018-07-01 06:33] LABS: BUN Blood Urea Nitrogen 15 mg/dL (7-18); Bicarbonate 35 mmol/L (21-32); Glucose Level 182 mg/dL (74-106); Potassium 4.1 mmol/L (3.5-5.1); Sodium Level 132 mmol/L (136-145)
[2018-07-01] MEDS: CLOPIDOGREL 75 MG TABLET PO SCH (08:27)
[2018-07-01] MEDS: ENOXAPARIN 40 MG/0.4 ML SQ SCH (08:28)
[2018-07-01] MEDS: LABETALOL HCL 100 MG TAB PO SCH ×2 (08:28→21:06)
[2018-07-01] MEDS: hydroCHLOROthiazide 25 MG TAB PO SCH (08:29)
[2018-07-01 10:22] LABS: Blood Morphology Comment NOT SEEN (NOT SEEN); Platelet Estimate ADEQ; Toxic Granulation PRESENT; Urine White Blood Cell Casts OK
[2018-07-01] MEDS: Levofloxacin 750mg IV 750 MG/150 ML BAG IV SCH (12:07)
--- NOTE | 2018-07-01 14:04 | PN ---
Subjective: Currently, the patient lying in bed. He looks comfortable. Shortness of breath improve d overnight. He is on oxygen. No fever. No chills. Good appetite. Normal bowel movement. Objective: Vital Signs: Blood pressure 99/56, respiratory rate 18, pulse 69, temperature 97.4, satu rating 98% on 2 L nasal cannula. General: He is alert, oriented x3. He does not look in any distress. HEENT: Atraumatic, normocephalic. PERRLA. Oral mucosa is moist. Neck: Supple. No JVD. Chest: Clear to auscultation with expiratory wheezing. Heart: Regular rate and rhythm. S1, S2 normal. No gallop. Abdomen: Soft, nontender. No masses. No hepatosplenomegaly. Obese. Positive bowel sounds. Extremities: No clubbing, cyanosis, or edema. No calf tenderness. Skin: With mild ecchymosis. Laboratory Data: This morning, CBC was normal except for white blood cells still up at 14.8, hemoglo bin 12.3, platelets 231. Chemistry within normal except for sodium 132, glucose 182. Assessment And Plan: A 77-year-old gentleman with history of hyperlipidemia, hypertension, presented with progressive shortness of breath. 1.Chronic obstructive pulmonary disease exacerbation, acute on chronic. Continue the patient on oxy gen. He is off BiPAP. Continue nebulizer every 4 hours. He improved dramatically on Solu-Medrol. We will continue that for 1 more day and then switched him to oral prednisone and discharge him hopef ully home if continue to improve. 2.Hypertension history. We will continue him on his home medication of hydrochlorothiazide and labe talol. 3.Hyperlipidemia. Continue statin. 4.DVT prophylaxis. Lovenox. 5.Leukocytosis, so far blood culture is negative, UA as well. Flu screen is negative, could be rela mohini to steroid. 6.Discharge planning hopefully in a.m. if the patient continued to improve clinically. We will obtain physical therapy to evaluate the patient in the meantime. FLAQUITO Voice ID: [id number] Report ID: [id number]
[2018-07-01] MEDS: ATORVASTATIN 10 MG TAB PO SCH (21:06)
[2018-07-02] MEDS: ALBUTEROL 2.5 MG/3 ML NEB SOL NEB SCH ×5 (00:17→16:00)
[2018-07-02] MEDS: IPRATROPIUM BROM 0.5MG/2.5ML NEB SCH ×5 (00:17→16:00)
[2018-07-02] MEDS: METHYLPREDNISOLONE 40 MG INJ IV SCH ×3 (01:13→16:44)
[2018-07-02] MEDS: hydroCHLOROthiazide 25 MG TAB PO SCH (09:07)
[2018-07-02] MEDS: ENOXAPARIN 40 MG/0.4 ML SQ SCH (09:07)
[2018-07-02] MEDS: CLOPIDOGREL 75 MG TABLET PO SCH (09:07)
[2018-07-02] MEDS: LABETALOL HCL 100 MG TAB PO SCH (09:08)
[2018-07-02 09:22] VITALS: O2SAT 96
[2018-07-02] MEDS: Levofloxacin 750mg IV 750 MG/150 ML BAG IV SCH (13:23)
[2018-07-02 14:26] VITALS: BP 123/72; TEMP 98.2
--- NOTE | 2018-07-03 11:47 | DS ---
Date of Discharge: 07/02/2018 Admitting Diagnoses: 1. Acute chronic obstructive pulmonary disease exacerbation. 2. Essential hypertension. 3. Mixed hyperlipidemia. 4. Coronary artery disease. Discharge Diagnoses: 1. Acute on chronic COPD exacerbation, improving. 2. Essential hypertension. 3. Mixed hyperlipidemia. 4. Neutrophilic leukocytosis. 5. Hyponatremia. 6. Chronic CO2 retainer with metabolic compensation. Hospital Course: The patient is a 77-year-old male, comes into the hospital with shortness of breath. The patient's workup revealed elevated white count with left shift. His chest x-ray revealed some hyperaerated markings consistent with COPD, no acute infiltrates. The patient was started on IV antibiotics, nebulizer treatments, and steroids. Started on empiric treatment. Cultures were obtained, which were negative to date. Flu screen was negative. The patient did have a good response. His ABG did show chronic hypercapnia with metabolic compensation with a bicarb of 34. His WBC count did improve slightly. His blood cultures remained negative. He is feeling significantly better. The patient does have oxygen at home, uses 2 L all the time. Has chronic respiratory failure. The patient otherwise was doing well. He was able to ambulate. The patient was then cleared for discharge in a stable condition. Activity: No strenuous activity. Followup: With primary care physician in 1 week. Return to ER for worsening condition. Diet: Heart healthy. Medications: As per medication reconciliation list. Physical Examination: General: Awake, alert, oriented x3. No acute distress. Elderly male. CV: S1, S2. No murmurs. Respiratory: Moving air well bilaterally. Some mild wheezing. Gastrointestinal: Abdomen is soft, nontender, nondistended. Positive bowel sounds. Extremities: No clubbing, cyanosis, or edema. Neurologic: Nonfocal. Total time spent discharging the patient was 33 minutes. Code status addressed, Full code SA/MODL Voice ID: [id number] Report ID: [id number] MTDD
== END 2018-07-02 17:08 | disposition home health service (06) | DRG 191 ==
LOC: ER 05:29 → ERHOLD 09:36 → 2ND 11:18
PROVIDERS: ADMIT Internal Medicine; ATTEND Family Medicine
DX: J44.1 Chronic obstructive pulmonary disease with (acute) exacerbation (principal); E87.1 Hypo-osmolality and hyponatremia; I10 Essential (primary) hypertension; E78.2 Mixed hyperlipidemia; D72.828 Other elevated white blood cell count; I25.10 Atherosclerotic heart disease of native coronary artery without angina pectoris; Z99.81 Dependence on supplemental oxygen; Z87.891 Personal history of nicotine dependence
CPT/HCPCS: 36415; 71045; 80048; 80061; 80076; 81015; 82805; 83605; 83735; 83880; 84145; 84484; 85025; 85610; 87040; 87077; 87086; 87088; 87186; 87804; 93005; 94640; 94660; 94760; 96361; 96365; 96367; 96375; 97002; 99285; J0456; J0696; J1650; J2920; J2930

== ENCOUNTER 2018-08-30 11:35 | Inpatient (IN) | payer MEDICARE ==
[2018-08-30] MEDS ORDERED: METHYLPREDNISOLONE 125 MG INJ ONE (11:52)
[2018-08-30] MEDS ORDERED: IPRATROPIUM BROM 0.5MG/2.5ML ONE (11:52)
[2018-08-30] MEDS ORDERED: LEVALBUTEROL 1.25 MG/3 ML NEB ONE (11:52)
[2018-08-30] MEDS ORDERED: MAGNESIUM SULFATE 1 gm IVPB 1 GM/100 ML BAG IV ONE (11:52)
--- NOTE | 2018-08-30 12:14 | RAD REPORT ---
EXAM DESCRIPTION: RAD - Chest Single View - 08/30/2018 12:08 pm CLINICAL HISTORY: DYSPNEA Chest pain. COMPARISON: Chest Single View dated 06/30/2018; Chest Single View dated 03/09/2018 FINDINGS: Portable technique limits examination quality. Diffuse emphysematous changes are present throughout the lungs. The heart is normal in size. No displ aced fractures. IMPRESSION: Prominent COPD.
[2018-08-30 12:22] LABS: Absolute Lymphocytes (CBC) 1.4 K/uL (0.7-4.9); Absolute Monocytes 2.2 K/uL (0.1-1.3); Absolute Neutrophil 15.8 K/uL (1.8-8.0); Basophils % 0.2 % (0-1.3); Eosinophils % 0.1 % (0-4.4); Hematocrit 46.3 % (39.6-49.0); Lymphocytes % 7.4 % (15.3-44.8); MCH 31.5 pg (27.0-35.0); MCV 92.5 fL (80-100); MPV 7.4 fL (7.6-11.3); Monocytes % 11.2 % (3.3-12.3)
[2018-08-30 12:41] LABS: BUN Blood Urea Nitrogen 14 mg/dL (7-18); Bicarbonate 34 mmol/L (21-32); Glucose Level 160 mg/dL (74-106); NT PRO-BNP 318 pg/mL (<450); Potassium 3.7 mmol/L (3.5-5.1); Sodium Level 134 mmol/L (136-145); Troponin (Emerg Dept Use Only) < 0.02 ng/mL (0.0-0.045)
--- NOTE | 2018-08-30 14:17 | ER ---
Nurse's Notes [facility] Name: Josue Temple Age: 77 yrs Sex: Male : 1940 Arrival Date: 08/30/2018 Time: 11:36 Bed 4 Private MD: Hussain Carrera Diagnosis: Chronic obstructive pulmonary disease with acute lower respiratory infection;Hypoxemia Presentation: 08/30 11:47 Presenting complaint: Patient states: I have been having trouble breathing the last la1 couple days. Pt room air sats 76%. Transition of care: patient was not received from another setting of care. Onset of symptoms was August 30, 2018. Risk Assessment: Do you want to hurt yourself or someone else? Patient reports no desire to harm self or others. 11:47 Method Of Arrival: Wheelchair la1 11:47 Acuity: HILLARY 2 la1 11:47 Initial Sepsis Screen: Does the patient meet any 2 criteria? No. Patient's initial ph sepsis screen is negative. Does the patient have a suspected source of infection? No. Patient's initial sepsis screen is negative. Care prior to arrival: None. Historical: - Allergies: 12:14 Banana; ph - PMHx: 12:14 COPD; Hypertension; Hyperlipidemia; ph - Immunization history:: Adult Immunizations unknown. - Social history:: Smoking status: . - Ebola Screening: : No symptoms or risks identified at this time. - Family history:: not pertinent. - Hospitalizations: : No recent hospitalization is reported. Screenin:15 Abuse screen: Denies threats or abuse. Denies injuries from another. Nutritional ph screening: No deficits noted. Tuberculosis screening: No symptoms or risk factors identified. Fall Risk No fall in past 12 months (0 pts). No secondary diagnosis (0 pts). IV access (20 points). Ambulatory Aid- None/Bed Rest/Nurse Assist (0 pts). Gait- Weak (10 pts.). Mental Status- Oriented to own ability (0 pts). Total Hair Fall Scale indicates High Risk Score (45 or more points). Fall prevention measures have been instituted. Side Rails Up X 2 Frequent Obs/Assessments Occuring Family Present and informed to notify staff if the need to leave the bedside As available patient and family educated on Fall Prevention Program and Strategies. Assessment: 11:45 General: Appears distressed, uncomfortable, Behavior is cooperative, appropriate for ph age. Pain: Complains of pain in anterior aspect of right upper chest and right breast. Neuro: Level of Consciousness is awake, alert, obeys commands, Oriented to person, place, time, situation. Cardiovascular: Reports chest pain, shortness of breath, Capillary refill is sluggish Rhythm is sinus rhythm Chest pain quality is sharp, is located in right anterior chest wall. Respiratory: Reports shortness of breath at rest cough that is Airway is patent Respiratory effort is labored, using tripod position, Respiratory pattern is tachypnea Breath sounds are diminished bilaterally. GI: No signs and/or symptoms were reported involving the gastrointestinal system. Derm: Skin is intact, is fragile, is thin, Skin is dusky. Musculoskeletal: Circulation, motion, and sensation intact. Range of motion: intact in all extremities. 11:50 Reassessment: RT at bedside, pt placed on bi-pap, tolerating well. ph 13:00 Reassessment: Patient appears in no apparent distress at this time. Patient and/or ph family updated on plan of care and expected duration. Pain level reassessed. Patient is alert, oriented x 3, equal unlabored respirations, skin warm/dry/pink. Bi-pap remains in place, respirations slowed to 26 bpm, pt reports that SOB is improving, awaiting lab and radiology results. 14:00 Reassessment: Patient appears in no apparent distress at this time. Patient and/or ph family updated on plan of care and expected duration. Pain level reassessed. Patient is alert, oriented x 3, equal unlabored respirations, skin warm/dry/pink. Pt resting quietly w/ eyes closed, awakens easily, bi-pap mask remains in place, awaiting admit orders and room assignment. 14:52 Reassessment: Patient appears in no apparent distress at this time. No changes from previously documented assessment. Patient and/or family updated on plan of care and expected duration. Pain level reassessed. 15:46 Reassessment: Patient appears in no apparent distress at this time. Patient and/or ph family updated on plan of care and expected duration. Pain level reassessed. Patient is alert, oriented x 3, equal unlabored respirations, skin warm/dry/pink. Attempted to call report, placed on hold >5 min, will attempt to call again. Vital Signs: 11:45 BP 119 / 78; Pulse 97; Resp 34; Temp 99.1(TE); Pulse Ox 76% on R/A; ph 12:30 BP 114 / 72; Pulse 86; Resp 20; Pulse Ox 96% on BiPAP; ph 13:00 BP 107 / 79; Pulse 85; Resp 18; Pulse Ox 97% on BiPAP; ph 13:30 BP 115 / 74; Pulse 79; Resp 18; Pulse Ox 97% on BiPAP; ph 14:00 BP 103 / 74; Pulse 79; Resp 20; Pulse Ox 96% on BiPAP; ph 14:30 BP 110 / 75; Pulse 77; Resp 18; Pulse Ox 96% on BiPAP; ph 14:53 BP 105 / 75; Pulse 79; Resp 18; Pulse Ox 97% on BiPAP; ph 15:32 BP 109 / 79; Pulse 79; Resp 20; Temp 98.7; Pulse Ox 97% on BiPAP; ph 11:45 84% on 2L NC ph Vitals: 14:53 Cardiac Rhythm Assessment Sinus rhythm. ph ED Course: 11:36 Patient arrived in ED. sb2 11:36 Hussain Carrera MD is Private Physician. sb2 11:39 Kalia Kincaid MD is Attending Physician. rn 11:48 Triage completed. la1 11:48 Inserted saline lock: 20 gauge in right antecubital area, using aseptic technique. gm Blood collected. 11:58 Initial lab(s) drawn, by me, sent to lab. First set of blood cultures drawn by me, Second set of blood cultures drawn by ca. 12:00 Patient has correct armband on for positive identification. Placed in gown. Bed in low ph position. Call light in reach. Side rails up X2. bus monitor on. Pulse ox on. NIBP on. Warm blanket given. Pillow given. 12:03 Anushka Lockwood, RN is Primary Nurse. ph 12:07 XRAY CXR (1 view) In Process Unspecified. EDMS 12:15 Arm band placed on. ph 12:20 Initial lab(s) drawn, by me, sent to lab. 13:04 BIPAP Sent. sv 14:14 Irma Ma MD is Hospitalizing Provider. rn 14:52 No provider procedures requiring assistance completed. Patient admitted, IV remains in ph place. Administered Medications: 11:55 Drug: Xopenex (3) 1.25 mg Route: Inhalation; ph 12:30 Follow up: Response: No adverse reaction ph 11:55 Drug: AtroVENT Aerosol 0.5 mg Route: Inhalation; ph 12:30 Follow up: Response: No adverse reaction ph 12:00 Drug: SOLU-Medrol 125 mg Route: IVP; Site: right antecubital; ph 13:05 Follow up: Response: No adverse reaction sv 12:08 Drug: Magnesium Sulfate 1 grams Route: IVPB; Infused Over: 1 hrs; Site: right ph antecubital; 13:04 Follow up: Response: No adverse reaction; IV Status: Completed infusion; IV Intake: sv 100ml Intake: 13:04 IV: 100ml; Total: 100ml. sv Outcome: 14:15 Decision to Hospitalize by Provider. rn 16:21 Patient left the ED. sv 16:21 Admitted to Tele accompanied by tech, via stretcher, with oxygen, with chart. ph 16:21 Condition: stable 16:21 Instructed on the need for admit. Signatures: Dispatcher [employer] Abiola Guerra RN Kalia Cevallos MD MD rn Attema, Lee, RN RN la1 Hall, Patricia, RN RN ph Billeau, Sheri sb2 Moya, Gabriella Corrections: (The following items were deleted from the chart) 12:20 12:20 Inserted saline lock: 20 gauge in right antecubital area, using aseptic gm technique. Blood collected. gm
--- NOTE | 2018-08-30 14:17 | EDPHYS ---
Physician Documentation [facility] Name: Josue Temple Age: 77 yrs Sex: Male : 1940 Arrival Date: 08/30/2018 Time: 11:36 Bed 4 Private MD: Hussain Carrera ED Physician Kalia Kincaid HPI: 08/30 14:11 This 77 yrs old Male presents to ER via Wheelchair with complaints of COPD rn Exacerbation. 14:11 The patient has shortness of breath at rest, with light activity. Onset: The rn symptoms/episode began/occurred at an unknown time. Duration: The symptoms are continuous. The patient's shortness of breath is aggravated by exertion, light activity. Severity of symptoms: At their worst the symptoms were moderate in the emergency department the symptoms are unchanged. The patient has experienced similar episodes in the past. Historical: - Allergies: 12:14 Banana; ph - PMHx: 12:14 COPD; Hypertension; Hyperlipidemia; ph - Immunization history:: Adult Immunizations unknown. - Social history:: Smoking status: . - Ebola Screening: : No symptoms or risks identified at this time. - Family history:: not pertinent. - Hospitalizations: : No recent hospitalization is reported. ROS: 14:11 Constitutional: + chills Eyes: Negative for injury, pain, redness, and discharge, Neck: rn Negative for injury, pain, and swelling, Cardiovascular: Negative for chest pain, palpitations, and edema, Respiratory: + cough and sob Abdomen/GI: Negative for abdominal pain, nausea, vomiting, diarrhea, and constipation, MS/Extremity: Negative for injury and deformity, Skin: Negative for injury, rash, and discoloration, Neuro: + weakness Exam: 14:11 Constitutional: Thin male, + moderate resp distress Head/Face: Normocephalic, rn atraumatic. Eyes: Pupils equal round and reactive to light, extra-ocular motions intact. Lids and lashes normal. Conjunctiva and sclera are non-icteric and not injected. Cornea within normal limits. Periorbital areas with no swelling, redness, or edema. ENT: dry MM, no stridor Cardiovascular: Regular rate and rhythm with a normal S1 and S2. No pulse deficits. Respiratory: + diffuse exp wheezing and moderate tachypnea, speaking 3 word sentences Abdomen/GI: Soft, non-tender MS/ Extremity: Pulses equal, no cyanosis. Neurovascular intact. Full, normal range of motion. Equal circumference. Neuro: Awake and alert, GCS 15, oriented to person, place, time, and situation. Cranial nerves II-XII grossly intact. Motor strength 5/5 in all extremities. Sensory grossly intact. Vital Signs: 11:45 BP 119 / 78; Pulse 97; Resp 34; Temp 99.1(TE); Pulse Ox 76% on R/A; ph 12:30 BP 114 / 72; Pulse 86; Resp 20; Pulse Ox 96% on BiPAP; ph 13:00 BP 107 / 79; Pulse 85; Resp 18; Pulse Ox 97% on BiPAP; ph 13:30 BP 115 / 74; Pulse 79; Resp 18; Pulse Ox 97% on BiPAP; ph 14:00 BP 103 / 74; Pulse 79; Resp 20; Pulse Ox 96% on BiPAP; ph 14:30 BP 110 / 75; Pulse 77; Resp 18; Pulse Ox 96% on BiPAP; ph 14:53 BP 105 / 75; Pulse 79; Resp 18; Pulse Ox 97% on BiPAP; ph 15:32 BP 109 / 79; Pulse 79; Resp 20; Temp 98.7; Pulse Ox 97% on BiPAP; ph 11:45 84% on 2L NC ph MDM: 11:39 Patient medically screened. rn 14:11 Differential diagnosis: Chronic Obstructive Pulmonary Disease Myocardial Infarction rn pneumonia, Pneumothorax pulmonary edema. Data reviewed: vital signs, nurses notes, lab test result(s), radiologic studies, plain films, and as a result, I will admit patient. Counseling: I had a detailed discussion with the patient and/or guardian regarding: the historical points, exam findings, and any diagnostic results supporting the discharge/admit diagnosis, lab results, radiology results, the need for further work-up and treatment in the hospital. Response to treatment: the patient's symptoms have markedly improved after treatment. Admission orders: after a detailed discussion of the patient's condition and case, the admit orders are written by me. 08/30 11:45 Order name: Troponin (emerg Dept Use Only); Complete Time: 13:19 rn 08/30 11:45 Order name: Blood Culture Adult (2) rn 08/30 11:45 Order name: BMP; Complete Time: 13:19 rn 08/30 11:45 Order name: CBC with Diff; Complete Time: 12:35 rn 08/30 11:45 Order name: NT PRO-BNP; Complete Time: 13:19 rn 08/30 11:45 Order name: Flu; Complete Time: 13:19 rn 08/30 11:46 Order name: Procalcitonin; Complete Time: 13:19 rn 08/30 11:56 Order name: Lactate; Complete Time: 13:19 rn 08/30 14:44 Order name: Urinalysis EDMS 08/30 14:44 Order name: CBC with Automated Diff EDMS 08/30 14:44 Order name: CBC with Automated Diff EDMS 08/30 14:44 Order name: CBC with Automated Diff EDMS 08/30 14:44 Order name: CBC with Automated Diff EDMS 08/30 14:44 Order name: Comprehensive Metabolic Panel EDMS 08/30 11:45 Order name: XRAY CXR (1 view); Complete Time: 12:35 rn 08/30 11:45 Order name: EKG; Complete Time: 11:46 rn 08/30 11:45 Order name: Cardiac monitoring; Complete Time: 11:53 rn 08/30 11:45 Order name: EKG - Nurse/Tech; Complete Time: 11:53 rn 08/30 11:45 Order name: IV Saline Lock; Complete Time: 11:53 rn 08/30 11:45 Order name: Labs collected and sent; Complete Time: 11:53 rn 08/30 11:45 Order name: O2 Per Protocol; Complete Time: 11:53 rn 08/30 11:45 Order name: BIPAP 08/30 14:44 Order name: Heart Healthy EDMN 08/30 14:44 Order name: Comprehensive Metabolic Panel EDMN 08/30 14:44 Order name: Comprehensive Metabolic Panel EDMN 08/30 14:44 Order name: Comprehensive Metabolic Panel EDMN 08/30 11:45 Order name: O2 Sat Monitoring; Complete Time: 11:53 rn Administered Medications: 11:55 Drug: Xopenex (3) 1.25 mg Route: Inhalation; ph 12:30 Follow up: Response: No adverse reaction ph 11:55 Drug: AtroVENT Aerosol 0.5 mg Route: Inhalation; ph 12:30 Follow up: Response: No adverse reaction ph 12:00 Drug: SOLU-Medrol 125 mg Route: IVP; Site: right antecubital; ph 13:05 Follow up: Response: No adverse reaction sv 12:08 Drug: Magnesium Sulfate 1 grams Route: IVPB; Infused Over: 1 hrs; Site: right ph antecubital; 13:04 Follow up: Response: No adverse reaction; IV Status: Completed infusion; IV Intake: sv 100ml Disposition: 14:11 Critical Care:. rn Disposition: 08/30/18 14:15 Hospitalization ordered by Irma Ma for Inpatient Admission. Preliminary diagnosis are Chronic obstructive pulmonary disease with acute lower respiratory infection, Hypoxemia. - Bed requested for Telemetry/MedSurg (Inpatient). - Status is Inpatient Admission. sv - Condition is Stable. - Problem is new. - Symptoms have improved. UTI on Admission? No Critical care time excluding procedures: 14:11 Critical care time: Bedside Care: 30 minutes. Total time: 30 minutes rn Signatures: Dispatcher [employer] EDMS Abiola Quiroz RN RN sv Woody, Diana, RN RN dw Nieto, Roman, MD MD rn Hall, Patricia, RN RN Corrections: (The following items were deleted from the chart) 15:23 14:15 Hospitalization Ordered by Irma Ma MD for Inpatient Admission. Preliminary dw diagnosis is Chronic obstructive pulmonary disease with acute lower respiratory infection; Hypoxemia. Bed requested for Telemetry/MedSurg (Inpatient). Status is Inpatient Admission. Condition is Stable. Problem is new. Symptoms have improved. UTI on Admission? No. rn 15:24 15:23 08/30/2018 14:15 Hospitalization Ordered by Irma Ma MD for Inpatient dw Admission. Preliminary diagnosis is Chronic obstructive pulmonary disease with acute lower respiratory infection; Hypoxemia. Bed requested for Telemetry/MedSurg (Inpatient). Status is Inpatient Admission. Condition is Stable. Problem is new. Symptoms have improved. UTI on Admission? No. dw 15:24 15:24 08/30/2018 14:15 Hospitalization Ordered by Irma Ma MD for Inpatient dw Admission. Preliminary diagnosis is Chronic obstructive pulmonary disease with acute lower respiratory infection; Hypoxemia. Bed requested for Telemetry/MedSurg (Inpatient). Status is Inpatient Admission. Condition is Stable. Problem is new. Symptoms have improved. UTI on Admission? No. dw 16:21 15:24 08/30/2018 14:15 Hospitalization Ordered by Irma Ma MD for Inpatient sv Admission. Preliminary diagnosis is Chronic obstructive pulmonary disease with acute lower respiratory infection; Hypoxemia. Bed requested for Telemetry/MedSurg (Inpatient). Status is Inpatient Admission. Condition is Stable. Problem is new. Symptoms have improved. UTI on Admission? No. dw
[2018-08-30] MEDS ORDERED: ONDANSETRON 4 MG/2 ML VIAL IV PRN (14:37)
[2018-08-30] MEDS ORDERED: ACETAMINOPHEN 500 MG TAB PO PRN (14:37)
[2018-08-30 17:02] VITALS: BMI 25.1
[2018-08-30] MEDS ORDERED: INFLUENZA VACCINE (for 3y+) 0.5 ML DOSE IMVAC ONE (18:00)
[2018-08-30] MEDS ORDERED: PNEUMOCOCCAL VACCINE 0.5 ML IMVAC ONE (18:00)
[2018-08-30] MEDS ORDERED: Levofloxacin500mg IV 500 MG/100 ML BAG IV SCH (19:00)
[2018-08-30] MEDS: ALBUTEROL 2.5 MG/3 ML NEB SOL NEB SCH (19:14)
[2018-08-30] MEDS: IPRATROPIUM BROM 0.5MG/2.5ML NEB SCH (19:14)
[2018-08-30 19:19] LABS: Urine Appearance CLEAR; Urine Bilirubin NEGATIVE (NEG); Urine Blood 1+ (NEG); Urine Color YELLOW; Urine Glucose 3+ (NEG); Urine Protein NEGATIVE (NEG); Urine Specific Gravity 1.025 (1.005-1.030)
[2018-08-30 19:48] LABS: Urine Microscopic Reflex ORDER UMIC
[2018-08-30 19:49] LABS: Urine Bacteria <20 /HPF (NONE SEEN); Urine Culture Reflex Order NOT NEEDED
[2018-08-30] MEDS: predniSONE 20 MG TAB PO SCH (20:53)
[2018-08-31] MEDS: IPRATROPIUM BROM 0.5MG/2.5ML NEB SCH ×3 (01:44→13:46)
[2018-08-31] MEDS: ALBUTEROL 2.5 MG/3 ML NEB SOL NEB SCH ×3 (01:44→13:46)
[2018-08-31 06:14] LABS: Absolute Lymphocytes (CBC) 1.1 K/uL (0.7-4.9); Absolute Monocytes 0.7 K/uL (0.1-1.3); Absolute Neutrophil 13.6 K/uL (1.8-8.0); Hematocrit 42.5 % (39.6-49.0); Lymphocytes % 7.4 % (15.3-44.8); MCH 31.1 pg (27.0-35.0); MCV 91.7 fL (80-100); MPV 7.5 fL (7.6-11.3); Monocytes % 4.5 % (3.3-12.3); RBC Red Blood Cell Count 4.63 M/uL (4.33-5.43)
[2018-08-31 06:38] LABS: ALT/SGPT 19 U/L (12-78); AST/SGOT 11 U/L (15-37); Albumin 2.9 g/dL (3.4-5.0); Alkaline Phosphatase 32 U/L (45-117); BUN Blood Urea Nitrogen 18 mg/dL (7-18); Bicarbonate 33 mmol/L (21-32); Bilirubin Total 0.5 mg/dL (0.2-1.0); Glucose Level 173 mg/dL (74-106); Potassium 3.8 mmol/L (3.5-5.1); Protein, Total 6.2 g/dL (6.4-8.2); Sodium Level 136 mmol/L (136-145)
--- NOTE | 2018-08-31 07:35 | P.HP ---
Certification for Inpatient Patient admitted to: Inpatient With expected LOS: >2 Midnights Patient will require the following post-hospital care: None Practitioner: I am a practitioner with admitting privileges, knowledge of patient current condition, hospital course, and medical plan of care. Services: Services provided to patient in accordance with Admission requirements found in Title 42 Section 412.3 of the Code of Federal Regulations Patient History Date of Service: 08/30/18 Reason for admission: Respiratory distress History of Present Illness: Patient is a 77-year-old gentleman who has a longstanding history of COPD. If he came into the emergency room because he had not been able to breathe for the last 2 days. He was tachypneic and hypoxic it with his oxygen saturations are room-air reaching 76%. He required BiPAP support. He is able the tolerate the BiPAP support and feels like he is doing better. However, he is still requiring large amounts of pressure & oxygen, and we will need to get this weaned off prior to arranging for discharge home. Will also get nursing to evaluate his strength. He appears weak while laying in bed with BiPAP in place. Will assess his strength in the morning. Allergies banana Allergy (Mild, Verified 03/09/18 02:47) Itching Home Medications: Albuterol Neb [Proventil 0.083% Neb Soln] 3 ml IH Q6HP PRN 03/09/18 Albuterol Sulfate [Proair Respiclick] 2 puff IH QIDP PRN 03/09/18 Budesonide/Formoterol Fumarate [Symbicort 80-4.5 Mcg Inhaler] 2 puff IH BID Cholecalciferol (Vitamin D3) [Vitamin D3] 5,000 unit PO DAILY 03/09/18 Clopidogrel Bisulfate [Plavix*] 75 mg PO DAILY 03/09/18 Ipratropium [place] 1 vial IH BID 03/09/18 Labetalol HCl [Trandate] 200 mg PO BID 03/09/18 Pravastatin Sodium 40 mg PO DAILY 03/09/18 hydroCHLOROthiazide [Hydrochlorothiazide] 25 mg PO DAILY 03/09/18 levoFLOXacin [Levaquin] 750 mg PO DAILY #5 tab 07/02/18 predniSONE [Deltasone*] 10 mg PO BID #20 tab 07/02/18 - Past Medical/Surgical History Has patient received pneumonia vaccine in the past: No Diabetic: No -: COPD -: HTN -: Hyperlipidemia -: Vasectomy -: Leg surgery - Family History Father Medical History: Cancer Brother Medical History: Cancer - Social History Smoking Status: Former smoker Alcohol use: No CD- Drugs: No Caffeine use: Yes Place of Residence: Home Review of Systems 10-point ROS is otherwise unremarkable Physical Examination - Vital Signs Temperature: 97.5 F Blood Pressure: 118/69 Pulse: 66 Respirations: 18 Pulse Ox (%): 94 - Physical Exam General: Alert, In no apparent distress, Oriented x3 HEENT: Atraumatic, PERRLA, Mucous membr. moist/pink, EOMI, Sclerae nonicteric Neck: Supple, 2+ carotid pulse no bruit, No LAD, Without JVD or thyroid abnormality Respiratory: Diminished, Expiratory wheezes, Rhonchi/gurgles Cardiovascular: Regular rate/rhythm, Normal S1 S2, Systolic murmur Gastrointestinal: Normal bowel sounds, Hypoactive, Soft and benign, Non- distended, No tenderness Musculoskeletal: No clubbing, No swelling, No tenderness Integumentary: No rashes Neurological: Normal speech, Normal tone, Sensation intact, Cranial nerves 3-12 intact, Normal affect, Abnormal gait, Abnormal strength Lymphatics: No axilla or inguinal lymphadenopathy - Studies Laboratory Data (last 24 hrs) 08/30/18 11:48: WBC 19.5 H, Hgb 15.7, Hct 46.3, Plt Count 248 08/30/18 11:48: Sodium 134 L, Potassium 3.7, BUN 14, Creatinine 1.00, Glucose 160 H Microbiology Data (last 24 hrs): 08/30/18 11:48 Nasopharnyx Influenza Type A Antigen Screen - Final 08/30/18 11:48 Nasopharnyx Influenza Type B Antigen Screen - Final Assessment & Plan - Problems (Diagnosis) (1) Acute exacerbation of chronic obstructive pulmonary disease (COPD) Current Visit: Yes Status: Acute (2) Pneumonia Current Visit: Yes Status: Acute (3) Hypoxemia Current Visit: Yes Status: Acute (4) Respiratory failure Current Visit: Yes Status: Acute (5) Dependence on non-invasive ventilation Current Visit: Yes Status: Acute - Plan Plan: 1. Continue with albuterol and Atrovent nebs 2. Continue with IV steroids 3. Outpatient pulmonary consultation 4. Slowly wean off of BiPAP 5. Antibiotic 6. Repeat chest x-ray in the morning 7. GI and DVT prophylaxis Discharge Plan: Home Plan to discharge in: Greater than 2 days - Advance Directives Does patient have a Living Will: Yes Does patient have a Durable POA for Healthcare: Yes - Code Status/Comfort Care Code Status Assessed: Yes Code Status: Full Code Critical Care: No Time Spent Managing PTS Care (In Minutes): 45
[2018-08-31 08:13] LABS: Blood Morphology Comment NOT SEEN (NOT SEEN); Platelet Estimate ADEQ; Urine White Blood Cell Casts OK
--- NOTE | 2018-08-31 08:34 | EKG ---
Test Date: 2018-08-30 Test Time: 12:33:24 Membership Secretary: AG/Flakita MEASUREMENT RESULTS: Intervals: Rate: 90 MN: 128 QRSD: 80 QT: 336 QTc: 411 Maria Stein: P: 79 MN: 128 QRS: 86 T: 76 INTERPRETIVE STATEMENTS: Normal sinus rhythm Normal ECG Compared to ECG 06/30/2018 05:47:25 No significant changes Electronically Signed On 08-31-18 08:33:09 [employer] SUPERVISOR by Roosevelt Cunningham
--- NOTE | 2018-08-31 08:53 | P.CNS ---
Date of Consult: 08/31/18 Chief Complaint: Respiratory distress History of Present Illness: Patient is 77 years of age well known to me he has a history of COPD compliant with his therapy admitted with a 4 day history of right-sided chest discomfort shortness of breath denies any fever chills or chest pain. He feels a lot better now compliant with his nebulizers at home Allergies banana Allergy (Mild, Verified 03/09/18 02:47) Itching Home Medications: Albuterol Neb [Proventil 0.083% Neb Soln] 3 ml IH Q6HP PRN 03/09/18 Albuterol Sulfate [Proair Respiclick] 2 puff IH QIDP PRN 03/09/18 Budesonide/Formoterol Fumarate [Symbicort 80-4.5 Mcg Inhaler] 2 puff IH BID Cholecalciferol (Vitamin D3) [Vitamin D3] 5,000 unit PO DAILY 03/09/18 Clopidogrel Bisulfate [Plavix*] 75 mg PO DAILY 03/09/18 Ipratropium [place] 1 vial IH BID 03/09/18 Labetalol HCl [Trandate] 200 mg PO BID 03/09/18 Pravastatin Sodium 40 mg PO DAILY 03/09/18 hydroCHLOROthiazide [Hydrochlorothiazide] 25 mg PO DAILY 03/09/18 levoFLOXacin [Levaquin] 750 mg PO DAILY #5 tab 07/02/18 predniSONE [Deltasone*] 10 mg PO BID #20 tab 07/02/18 - Past Medical/Surgical History Diabetic: No -: COPD -: HTN -: Hyperlipidemia -: Vasectomy -: Leg surgery - Family History Father Medical History: Cancer Brother Medical History: Cancer - Social History Smoking Status: Former smoker Alcohol use: No CD- Drugs: No Caffeine use: Yes Place of Residence: Home Review of Systems 10-point ROS is otherwise unremarkable General: Weakness Respiratory: Cough, Shortness of Breath Physical Examination Temp Pulse Resp BP Pulse Ox 97.5 F 66 18 118/69 94 08/31/18 07:40 08/31/18 07:40 08/31/18 07:40 08/31/18 07:40 08/31/18 07:40 General: Alert, Oriented x3, Mild distress HEENT: Atraumatic Neck: Supple Respiratory: Expiratory wheezes Cardiovascular: No edema, Regular rate/rhythm Gastrointestinal: Normal bowel sounds, Soft and benign Laboratory Data (last 24 hrs) 08/31/18 05:24: Sodium 136, Potassium 3.8, BUN 18, Creatinine 0.80, Glucose 173 H, Total Bilirubin 0.5, AST 11 L, ALT 19, Alkaline Phosphatase 32 L 08/31/18 05:24: WBC 15.5 H D, Hgb 14.4, Hct 42.5, Plt Count 204 08/30/18 11:48: WBC 19.5 H, Hgb 15.7, Hct 46.3, Plt Count 248 08/30/18 11:48: Sodium 134 L, Potassium 3.7, BUN 14, Creatinine 1.00, Glucose 160 H - Problems (1) Acute exacerbation of chronic obstructive pulmonary disease (COPD) Current Visit: Yes Status: Acute Plan: Patient is 77 years of age admitted with an acute exacerbation of his underlying COPD as compliant with this therapy at home request albuterol and ipratropium known nebulizers medication to be faxed to the pharmacy I am not sure how much prednisone he takes a corn according to him he takes it twice a day suspect is 10 mg no evidence of an infection white count is mildly mildly elevated he has improved I recommend adding a low-dose theophylline 300 mg at the time of discharge in follow up with me in a week vital signs are all stable
[2018-08-31] MEDS: predniSONE 20 MG TAB PO SCH (09:25)
[2018-08-31 15:27] VITALS: O2SAT 98
--- NOTE | 2018-08-31 15:34 | P.SSS ---
Patient History Date of Service: 08/31/18 Reason for admission: Respiratory distress History of Present Illness: Patient is a 77-year-old gentleman who has a longstanding history of COPD. If he came into the emergency room because he had not been able to breathe for the last 2 days. He was tachypneic and hypoxic it with his oxygen saturations are room-air reaching 76%. He required BiPAP support. He is able the tolerate the BiPAP support and feels like he is doing better. However, he is still requiring large amounts of pressure & oxygen, and we will need to get this weaned off prior to arranging for discharge home. Will also get nursing to evaluate his strength. He appears weak while laying in bed with BiPAP in place. Will assess his strength in the morning. Allergies banana Allergy (Mild, Verified 03/09/18 02:47) Itching Home Medications: Albuterol Sulfate [Proair Respiclick] 2 puff IH QIDP PRN 03/09/18 Cholecalciferol (Vitamin D3) [Vitamin D3] 5,000 unit PO DAILY 03/09/18 Clopidogrel Bisulfate [Plavix*] 75 mg PO DAILY 03/09/18 Labetalol HCl [Trandate] 200 mg PO BID 03/09/18 Pravastatin Sodium 40 mg PO DAILY 03/09/18 hydroCHLOROthiazide [Hydrochlorothiazide] 25 mg PO DAILY 03/09/18 predniSONE [Deltasone*] 10 mg PO BID #20 tab 07/02/18 Fenofibrate [Tricor*] 48 mg PO DAILY 08/31/18 Theophylline [Ranjit-Dur*] 300 mg PO DAILY #30 tab 08/31/18 - Past Medical/Surgical History Has patient received pneumonia vaccine in the past: No Diabetic: No -: COPD -: HTN -: Hyperlipidemia -: Vasectomy -: Leg surgery - Family History Father -: Cancer Brother -: Cancer - Social History Smoking Status: Former smoker Alcohol use: No CD- Drugs: No Caffeine use: Yes Place of Residence: Home Review of Systems 10-point ROS is otherwise unremarkable Physical Examination - Vital Signs Temperature: 97.5 F Blood Pressure: 146/73 Pulse: 78 Respirations: 20 Pulse Ox (%): 96 - Physical Exam General: Alert, In no apparent distress HEENT: Atraumatic, PERRLA, Mucous membr. moist/pink, EOMI, Sclerae nonicteric Neck: Supple, 2+ carotid pulse no bruit, No LAD, Without JVD or thyroid abnormality Respiratory: Clear to auscultation bilaterally, Normal air movement Cardiovascular: Regular rate/rhythm, Normal S1 S2 Gastrointestinal: Normal bowel sounds, No tenderness Musculoskeletal: No tenderness Integumentary: No rashes Neurological: Normal gait, Normal speech, Normal strength at 5/5 x4 extr, Normal tone, Normal affect Lymphatics: No axilla or inguinal lymphadenopathy - Studies Laboratory Data (last 24 hrs) 08/31/18 05:24: Sodium 136, Potassium 3.8, BUN 18, Creatinine 0.80, Glucose 173 H, Total Bilirubin 0.5, AST 11 L, ALT 19, Alkaline Phosphatase 32 L 08/31/18 05:24: WBC 15.5 H D, Hgb 14.4, Hct 42.5, Plt Count 204 Microbiology Data (last 24 hrs): 08/30/18 11:48 Nasopharnyx Influenza Type A Antigen Screen - Final 08/30/18 11:48 Nasopharnyx Influenza Type B Antigen Screen - Final Treatment Summary: Overall during the hospital course patient remained stable Patient was initially admitted to the hospital for COPD exacerbation. Pulmonology was consulted who recommended the patient be continued on ipratropium and albuterol nebulize treatment here every 6 hr along with steroids to be started on theophylline. Patient had marked improvement in his symptoms and was doing well. Patient does have severe COPD with home oxygen usage. Patient was weaned down to 2 L here in the hospital. PT was consulted. Patient ambulated with physical therapy was able to tolerate his diet well and thus was discharged home under stable condition was asked to continue following up with primary care provider along with the pulmonology. Patient demonstrated understanding and thus was discharged home under stable condition. - Disposition Disposition: ROUTINE DISCHARGE Condition: GOOD Diet: Regular Activity: Ad desirae Critical Care: No
[2018-08-31 17:51] VITALS: BP 109/57; TEMP 97.6
[2018-08-31] MEDS ORDERED: IPRATROPIUM BROM 0.5MG/2.5ML ONE (19:49)
[2018-08-31] MEDS ORDERED: ALBUTEROL 2.5 MG/3 ML NEB SOL ONE (19:49)
[2018-08-31] MEDS ORDERED: ATORVASTATIN 10 MG TAB PO SCH (21:00)
[2018-08-31] MEDS ORDERED: LABETALOL HCL 100 MG TAB PO SCH (21:00)
[2018-09-01] MEDS ORDERED: FENOFIBRATE 48 MG TAB PO SCH (09:00)
[2018-09-01] MEDS ORDERED: hydroCHLOROthiazide 25 MG TAB PO SCH (09:00)
[2018-09-01] MEDS ORDERED: VITAMIN D 5,000 UNIT CAP PO SCH (09:00)
[2018-09-01] MEDS ORDERED: CLOPIDOGREL 75 MG TABLET PO SCH (09:00)
== END 2018-08-31 19:29 | disposition home or self-care (01) | DRG 192 ==
LOC: ER 11:35 → INTOOBSV 14:39 → ERHOLD 14:39 → OBSVTOIN 14:39 → 2ND 15:59 → OBSVTOIN 08-31 07:31
PROVIDERS: ADMIT Family Medicine; ATTEND Family Medicine
PROC: 5A09357 Assistance with Respiratory Ventilation, Less than 24 Consecutive Hours, Continuous Positive Airway Pressure (ICD-10-PCS; principal; 2018-08-31)
DX: J44.1 Chronic obstructive pulmonary disease with (acute) exacerbation (principal); Z87.891 Personal history of nicotine dependence; I10 Essential (primary) hypertension; E78.5 Hyperlipidemia, unspecified; Z99.81 Dependence on supplemental oxygen; R09.02 Hypoxemia
CPT/HCPCS: 36415; 71045; 80048; 80053; 81003; 81015; 83605; 83880; 84145; 84484; 85025; 87040; 87804; 93005; 94660; 96365; 96375; 97162; 99285; G0378; J2930; J3475; J7512

== ENCOUNTER 2018-09-02 02:48 | Inpatient (IN) | payer MEDICARE ==
[2018-09-02] MEDS ORDERED: IPRATROPIUM BROM 0.5MG/2.5ML ONE (03:23)
[2018-09-02] MEDS ORDERED: ALBUTEROL 2.5 MG/3 ML NEB SOL ONE (03:23)
[2018-09-02] MEDS ORDERED: METHYLPREDNISOLONE 125 MG INJ ONE (03:24)
[2018-09-02] MEDS ORDERED: CEFTRIAXONE/SWI 1gm 1 GM/10 ML SYR ONE (03:24)
[2018-09-02 04:02] LABS: Arterial Blood Carboxyhemoglob 0.9 % (0-1.5); Blood Gas Oxyhemoglobin 96.6 % (94-97); Blood O2 Saturation 98.5 % (92-98.5)
[2018-09-02 04:07] LABS: Absolute Lymphocytes (CBC) 1.6 K/uL (0.7-4.9); Absolute Monocytes 1.7 K/uL (0.1-1.3); Eosinophils % 0.1 % (0-4.4); Hematocrit 45.8 % (39.6-49.0); Lymphocytes % 9.6 % (15.3-44.8); MPV 7.7 fL (7.6-11.3); Monocytes % 10.5 % (3.3-12.3); RBC Red Blood Cell Count 4.91 M/uL (4.33-5.43)
[2018-09-02 04:09] LABS: Protime INR 1.08
[2018-09-02 04:19] LABS: ALT/SGPT 39 U/L (12-78); AST/SGOT 22 U/L (15-37); Albumin 3.1 g/dL (3.4-5.0); Alkaline Phosphatase 40 U/L (45-117); BUN Blood Urea Nitrogen 19 mg/dL (7-18); Bicarbonate 38 mmol/L (21-32); Bilirubin Total 1.1 mg/dL (0.2-1.0); Glucose Level 171 mg/dL (74-106); Lipase 76 U/L (73-393); Magnesium 1.7 mg/dL (1.8-2.4); NT PRO-BNP 662 pg/mL (<450); Potassium 3.7 mmol/L (3.5-5.1); Protein, Total 6.9 g/dL (6.4-8.2); Sodium Level 136 mmol/L (136-145); Troponin (Emerg Dept Use Only) < 0.02 ng/mL (0.0-0.045)
[2018-09-02] MEDS ORDERED: Levofloxacin 750mg IV 750 MG/150 ML BAG IV ONE (05:05)
[2018-09-02] MEDS ORDERED: PIPER/TAZO/NS 3.375gm 0 GM/0 ML BAG ONE (05:06)
[2018-09-02] MEDS ORDERED: PIPERACIL/TAZO 4.5 GM VIAL IV ONE (05:09)
[2018-09-02] MEDS ORDERED: NA CHLORIDE 0.9% 100 ML IV ONE (05:09)
[2018-09-02] MEDS ORDERED: ONDANSETRON 4 MG/2 ML VIAL IV PRN (06:04)
[2018-09-02] MEDS ORDERED: MAGNESIUM HYDROXIDE 8% 30 ML PO PRN (06:04)
--- NOTE | 2018-09-02 06:10 | ER ---
Nurse's Notes [facility] Name: Josue Temple Age: 77 yrs Sex: Male : 1940 Arrival Date: 09/02/2018 Time: 02:50 Bed 2 Private MD: Diagnosis: RLL Pneumonia;Respiratory distress;Hypoxia Presentation: 09/02 03:01 Presenting complaint: Patient states: Discharged from hospital 2 days ago with COPD tl2 exacerbation, continuing to have breathing difficulty. Pt presents with labored breathing, cyanotic and 42% on RA. Placed on NRB and O2 increased to 100%, color improved. Transition of care: patient was not received from another setting of care. Onset of symptoms was August 30, 2018. Risk Assessment: Do you want to hurt yourself or someone else? Patient reports no desire to harm self or others. Initial Sepsis Screen: Does the patient meet any 2 criteria? No. Patient's initial sepsis screen is negative. Does the patient have a suspected source of infection? No. Patient's initial sepsis screen is negative. Care prior to arrival: None. 03:01 Method Of Arrival: Wheelchair tl2 03:01 Acuity: [place]ILL[place] 2 tl2 Triage Assessment: 03:04 General: Appears in no apparent distress. uncomfortable, Behavior is cooperative, tl2 appropriate for age, anxious. Pain: Denies pain. Neuro: Level of Consciousness is awake, alert, obeys commands, Oriented to person, place, time, situation. Cardiovascular: Denies chest pain. Respiratory: Reports shortness of breath cough that is labored breathing Airway is patent Respiratory effort is labored, Respiratory pattern is symmetrical, Onset: The symptoms/episode began/occurred 2 days ago, the patient has moderate shortness of breath. GI: No signs and/or symptoms were reported involving the gastrointestinal system. Derm: Skin is dusky. Historical: - Allergies: 03:04 Banana; tl2 - Home Meds: 04:12 Unable to obtain [Active]; tl2 - PMHx: 03:04 COPD; Hyperlipidemia; Hypertension; tl2 - Immunization history:: Adult Immunizations up to date. - Social history:: Smoking status: Patient/guardian denies using tobacco. - Ebola Screening: : No symptoms or risks identified at this time. Screenin:04 Abuse screen: Denies threats or abuse. Nutritional screening: No deficits noted. ea Tuberculosis screening: No symptoms or risk factors identified. Fall Risk IV access (20 points). Assessment: 02:55 General: Appears distressed, Behavior is restless. Pain: Denies pain. Neuro: Level of ea Consciousness is awake, alert, obeys commands, Oriented to person, place, time, situation. Cardiovascular: Heart tones S1 S2 present. Respiratory: Airway is patent Respiratory effort is labored, pursed lip, with retractions, Respiratory pattern is tachypnea Breath sounds are diminished bilaterally. Derm: Derm: Skin is dusky, Skin temperature is cool. 03:00 Reassessment: Pt's O2 sat increased to 100% and color improved after being placed on tl2 NRB. RT at bedside with BiPap. 03:07 Cardiovascular: Rhythm is sinus tachycardia. tl2 04:10 Reassessment: Patient and/or family updated on plan of care and expected duration. Pain ea level reassessed. Remains on BiPap tolerating well, symptoms improved, family remains at bedside. 05:00 Reassessment: Patient and/or family updated on plan of care and expected duration. Pain ea level reassessed. Patient is alert, oriented x 3, equal unlabored respirations, skin warm/dry/pink. 06:45 Reassessment: Patient and/or family updated on plan of care and expected duration. Pain ea level reassessed. Patient is alert, oriented x 3, equal unlabored respirations, skin warm/dry/pink. 07:10 Reassessment: Patient is alert, oriented x 3, equal unlabored respirations, skin aa5 warm/dry/pink. Pt sitting up in bed, tolerating Bi-PAP well, pt reports SOB has improved. Pt notified of wait time for transport to Room 419. . 07:50 Reassessment: Patient is alert, oriented x 3, equal unlabored respirations, skin aa5 warm/dry/pink. Vital Signs: 03:04 BP 114 / 74; Pulse 110; Resp 35; Temp 99.9(O); Pulse Ox 100% on 10% Non-rebreather tl2 mask; Weight 77.11 kg; Height 5 ft. 9 in. (175.26 cm); 04:12 BP 99 / 79; Pulse 81; Resp 25; Pulse Ox 96% on BiPAP; ea 04:44 BP 104 / 93; Pulse 101; Resp 26; Pulse Ox 99% on BiPAP; tl2 05:39 BP 110 / 85; Pulse 98; Resp 22; Pulse Ox 97% on BiPAP; tl2 07:15 BP 103 / 72; Pulse 93; Resp 20 S; Temp 98.9(TE); Pulse Ox 95% on BiPAP; Pain 0/10; aa5 03:04 Body Mass Index 25.10 (77.11 kg, 175.26 cm) tl2 ED Course: 02:50 Patient arrived in ED. tl2 02:50 Inserted saline lock: 20 gauge in right antecubital area, using aseptic technique. ea Blood collected. 03:00 Missed attempt(s): 20 gauge in left antecubital area. Bleeding controlled, band aid aa1 applied, catheter tip intact. 03:01 Nicholas Moss MD is Attending Physician. ps1 03:03 Triage completed. tl2 03:04 Maris Colon RN is Primary Nurse. ea 03:04 Arm band placed on right wrist. tl2 03:07 Patient has correct armband on for positive identification. Bed in low position. Call tl2 light in reach. Side rails up X2. Adult w/ patient. 03:23 X-ray completed. Portable x-ray completed in exam room. Patient tolerated procedure sg4 well. 03:30 Inserted saline lock: 20 gauge in left antecubital area, using aseptic technique. Blood ds4 collected. 03:31 XRAY CXR (1 view) In Process Unspecified. EDMS 06:09 Nicholas Moss MD is Hospitalizing Provider. ps1 06:09 Kaz Cole MD is Hospitalizing Provider. ps1 07:04 Patient admitted, IV remains in place. ea 07:05 No provider procedures requiring assistance completed. ea 07:07 Report given to Justo SOTOMAYOR. ea Administered Medications: 03:21 Drug: SOLU-Medrol 125 mg Route: IVP; Site: right antecubital; ea 04:14 Follow up: Response: No adverse reaction ea 03:31 Drug: DuoNeb (3:1) (2.5 mg - 0.5 mg) 3 ml Route: Nebulizer; tl2 04:14 Follow up: Response: No adverse reaction ea 03:35 Drug: Rocephin - (cefTRIAXone) 1 grams Route: IVPB; Infused Over: 30 mins; Site: left ea antecubital; 04:14 Follow up: Response: No adverse reaction; IV Status: Completed infusion ea 05:18 Drug: Zosyn 4.5 grams Route: IVPB; Infused Over: 60 mins; Site: left antecubital; tl2 06:00 Follow up: Response: No adverse reaction; IV Status: Completed infusion; IV Intake: ea 100ml 06:17 Drug: LevaQUIN 750 mg Volume: 150 ml; Route: IVPB; Infused Over: 90 mins; Site: right ea hand; 06:20 Follow up: Response: No adverse reaction; IV Status: Infusion continued upon transfer ea 07:15 Follow up: Response: No adverse reaction aa5 07:50 Follow up: Response: No adverse reaction; IV Status: Completed infusion aa5 Intake: 06:00 IV: 100ml; Total: 100ml. ea Outcome: 06:09 Decision to Hospitalize by Provider. ps1 06:15 Instructed on the need for admit, Demonstrated understanding of instructions. ea 07:50 Admitted to Tele accompanied by tech, via stretcher, room 419, with oxygen, with chart, aa5 Other with RT Report called to BRAN Jefferson 07:50 Condition: stable 07:50 Instructed on the need for admit. 07:51 Patient left the ED. aa5 Signatures: Dispatcher [employer] EDMS Ruth Wilcox RN RN aa1 Devora Monahan RN RN aa5 Angel Thacker ds4 Martha Gleason RN RN tl2 Maris Colon RN RN ea Singer, Phillip, MD MD ps1 Garcia, Susana sg4 Corrections: (The following items were deleted from the chart) 03:14 03:04 Pulse 110bpm; Resp 35bpm; Pulse Ox 100% 02 10% Non-rebreather mask; 77.11 kg; tl2 Height 5 ft. 9 in.; BMI: 25.1; tl2 03:24 03:09 Reassessment: ea tl2 03:58 03:04 Pulse 110bpm; Resp 35bpm; Pulse Ox 100% 02 10% Non-rebreather mask; Temp 99.9F tl2 Oral; 77.11 kg; Height 5 ft. 9 in.; BMI: 25.1; tl2
--- NOTE | 2018-09-02 06:10 | EDPHYS ---
Physician Documentation [facility] Name: Josue Temple Age: 77 yrs Sex: Male : 1940 Arrival Date: 09/02/2018 Time: 02:50 Bed 2 Private MD: ED Physician Nicholas Moss HPI: 09/02 03:11 This 77 yrs old Male presents to ER via Wheelchair with complaints of ps1 Respiratory Distress. 03:11 patient presenting hypoxic in 40's. Hx of COPD and recent admission for same. Patient ps1 appears cyanotic. Audible rales during examination. Usually home O2 3-4L. Responded to NRB \T\10L to 100% and regained color. Patient has a cough that sounds productive but isnt. . Historical: - Allergies: 03:04 Banana; tl2 - Home Meds: 04:12 Unable to obtain [Active]; tl2 - PMHx: 03:04 COPD; Hyperlipidemia; Hypertension; tl2 - Immunization history:: Adult Immunizations up to date. - Social history:: Smoking status: Patient/guardian denies using tobacco. - Ebola Screening: : No symptoms or risks identified at this time. ROS: 03:14 Unable to obtain ROS due to patient distress. ps1 Exam: 03:14 Constitutional: This is a well developed, well nourished patient who is awake, alert, ps1 and in no acute distress. Head/Face: Normocephalic, atraumatic. Eyes: Pupils equal round and reactive to light, extra-ocular motions intact. Lids and lashes normal. Conjunctiva and sclera are non-icteric and not injected. Chest/axilla: Normal chest wall appearance and motion. Nontender with no deformity. No lesions are appreciated. 03:14 Abdomen/GI: Soft, non-tender, with normal bowel sounds. No distension or tympany. No guarding or rebound. No evidence of tenderness throughout. 03:14 Cardiovascular: Rate: tachycardic, Rhythm: regular, Pulses: no pulse deficits are appreciated. 03:14 Respiratory: moderate respiratory distress is noted, Respirations: labored breathing, that is moderate, Breath sounds: rales, that are moderate, are located in both bases. 03:14 Skin: Appearance: Color: pale. Vital Signs: 03:04 BP 114 / 74; Pulse 110; Resp 35; Temp 99.9(O); Pulse Ox 100% on 10% Non-rebreather tl2 mask; Weight 77.11 kg; Height 5 ft. 9 in. (175.26 cm); 04:12 BP 99 / 79; Pulse 81; Resp 25; Pulse Ox 96% on BiPAP; ea 04:44 BP 104 / 93; Pulse 101; Resp 26; Pulse Ox 99% on BiPAP; tl2 05:39 BP 110 / 85; Pulse 98; Resp 22; Pulse Ox 97% on BiPAP; tl2 07:15 BP 103 / 72; Pulse 93; Resp 20 S; Temp 98.9(TE); Pulse Ox 95% on BiPAP; Pain 0/10; aa5 03:04 Body Mass Index 25.10 (77.11 kg, 175.26 cm) tl2 MDM: 03:11 Patient medically screened. ps1 09/02 03:08 Order name: Blood Culture Adult (2) ps1 09/02 03:08 Order name: CBC with Diff; Complete Time: 04:54 ps1 09/02 03:08 Order name: Lipase; Complete Time: 04:54 ps1 09/02 03:08 Order name: Magnesium; Complete Time: 04:54 ps1 09/02 03:08 Order name: NT PRO-BNP; Complete Time: 04:54 ps1 09/02 03:08 Order name: PT-INR; Complete Time: 04:54 ps1 09/02 03:08 Order name: Ptt, Activated; Complete Time: 04:54 ps1 09/02 03:08 Order name: Troponin (emerg Dept Use Only); Complete Time: 04:54 ps1 09/02 03:09 Order name: CMP; Complete Time: 04:54 ps1 09/02 03:09 Order name: Lactate; Complete Time: 04:54 ps1 09/02 03:09 Order name: Blood Culture EDMS 09/02 03:22 Order name: ABG; Complete Time: 04:54 ps1 09/02 06:11 Order name: Comprehensive Metabolic Panel EDWV 09/02 06:11 Order name: Comprehensive Metabolic Panel EDWV 09/02 03:08 Order name: XRAY CXR (1 view) ps1 09/02 03:08 Order name: EKG; Complete Time: 03:09 ps1 09/02 03:08 Order name: Cardiac monitoring; Complete Time: 03:15 ps1 09/02 03:08 Order name: EKG - Nurse/Tech; Complete Time: 03:15 ps1 09/02 03:08 Order name: IV Saline Lock; Complete Time: 03:15 ps1 09/02 03:08 Order name: Labs collected and sent; Complete Time: 07:19 ps1 09/02 03:08 Order name: O2 Per Protocol; Complete Time: 03:15 ps1 09/02 03:22 Order name: BIPAP ps1 09/02 06:11 Order name: Lipid Profile EDWV 09/02 06:11 Order name: Lipid Profile EDWV 09/02 06:13 Order name: Heart Healthy EDWV 09/02 03:09 Order name: O2 Sat Monitoring; Complete Time: 03:15 ps1 Administered Medications: 03:21 Drug: SOLU-Medrol 125 mg Route: IVP; Site: right antecubital; ea 04:14 Follow up: Response: No adverse reaction ea 03:31 Drug: DuoNeb (3:1) (2.5 mg - 0.5 mg) 3 ml Route: Nebulizer; tl2 04:14 Follow up: Response: No adverse reaction ea 03:35 Drug: Rocephin - (cefTRIAXone) 1 grams Route: IVPB; Infused Over: 30 mins; Site: left ea antecubital; 04:14 Follow up: Response: No adverse reaction; IV Status: Completed infusion ea 05:18 Drug: Zosyn 4.5 grams Route: IVPB; Infused Over: 60 mins; Site: left antecubital; tl2 06:00 Follow up: Response: No adverse reaction; IV Status: Completed infusion; IV Intake: ea 100ml 06:17 Drug: LevaQUIN 750 mg Volume: 150 ml; Route: IVPB; Infused Over: 90 mins; Site: right ea hand; 06:20 Follow up: Response: No adverse reaction; IV Status: Infusion continued upon transfer ea 07:15 Follow up: Response: No adverse reaction aa5 07:50 Follow up: Response: No adverse reaction; IV Status: Completed infusion aa5 Disposition: 09/02/18 06:09 Hospitalization ordered by Kaz Cole for Inpatient Admission. Preliminary diagnosis are RLL Pneumonia, Respiratory distress, Hypoxia. - Bed requested for Telemetry/MedSurg (Inpatient). - Status is Inpatient Admission. aa5 - Condition is Stable. - Problem is an ongoing problem. - Symptoms have worsened. UTI on Admission? No Signatures: Dispatcher [employer] EDShayna Purcell RN RN dw Devora Monahan, RN RN aa5 Martha Gleason, RN RN tl2 Maris Colon, RN RN Nicholas Krause MD MD ps1 Corrections: (The following items were deleted from the chart) 03:15 03:11 patient presenting hypoxic in 40's. Hx of COPD and recent admission for same. ps1 Patient appears cyanotic. Audible rales during examination. Usually home O2 3-4L. . ps1 06:16 06:09 Hospitalization Ordered by Kaz Cole MD for Inpatient Admission. Preliminary dw diagnosis is RLL Pneumonia; Respiratory distress; Hypoxia. Bed requested for Telemetry/MedSurg (Inpatient). Status is Inpatient Admission. Condition is Stable. Problem is an ongoing problem. Symptoms have worsened. UTI on Admission? No. ps1 06:21 06:16 09/02/2018 06:09 Hospitalization Ordered by Kaz Cole MD for Inpatient dw Admission. Preliminary diagnosis is RLL Pneumonia; Respiratory distress; Hypoxia. Bed requested for Telemetry/MedSurg (Inpatient). Status is Inpatient Admission. Condition is Stable. Problem is an ongoing problem. Symptoms have worsened. UTI on Admission? No. dw 07:51 06:21 09/02/2018 06:09 Hospitalization Ordered by Kaz Cole MD for Inpatient aa5 Admission. Preliminary diagnosis is RLL Pneumonia; Respiratory distress; Hypoxia. Bed requested for Telemetry/MedSurg (Inpatient). Status is Inpatient Admission. Condition is Stable. Problem is an ongoing problem. Symptoms have worsened. UTI on Admission? No. dw
[2018-09-02] MEDS: ALBUTEROL 2.5 MG/3 ML NEB SOL NEB SCH ×3 (08:11→20:14)
[2018-09-02] MEDS: IPRATROPIUM BROM 0.5MG/2.5ML NEB SCH ×3 (08:11→20:14)
[2018-09-02] MEDS: NA CHLORIDE 0.9% 1,000 ML IV SCH ×2 (09:38→20:09)
[2018-09-02] MEDS: ENOXAPARIN 40 MG/0.4 ML SQ SCH (09:39)
--- NOTE | 2018-09-02 11:37 | RAD REPORT ---
EXAM DESCRIPTION: RAD - Chest Single View - 09/02/2018 3:29 am CLINICAL HISTORY: DYSPNEA Chest pain. COMPARISON: Chest Single View dated 08/30/2018; Chest Single View dated 06/30/2018; Chest Single View dated 03/09/2018 FINDINGS: Portable technique limits examination quality. Prominent COPD is present a small opacity has developed since the prior study in the right mid lung l aterally compatible with pneumonia. The heart is normal in size. No displaced fractures. IMPRESSION: Prominent COPD with developing pneumonia in the right mid lung laterally.
[2018-09-02] MEDS ORDERED: METHYLPREDNISOLONE 125 MG INJ IV SCH (12:00)
[2018-09-02] MEDS ORDERED: PNEUMOCOCCAL VACCINE 0.5 ML IMVAC ONE (12:00)
[2018-09-02 14:16] LABS: Urine Appearance CLEAR; Urine Bilirubin NEGATIVE (NEG); Urine Blood NEGATIVE (NEG); Urine Color DK YELLOW; Urine Glucose 3+ (NEG); Urine Protein NEGATIVE (NEG); Urine Specific Gravity >=1.030 (1.005-1.030); Urine pH 5.5 (5.0-7.0)
[2018-09-02 14:34] LABS: Urine Microscopic Reflex NO UMIC
[2018-09-02] MEDS: PIPER/TAZO/NS 3.375gm 3.375 GM/100 ML BAG IVPB SCH ×2 (15:41→21:37)
[2018-09-02] MEDS ORDERED: MAGNESIUM SULFATE 1 gm IVPB 1 GM/100 ML BAG IV ONE (19:30)
[2018-09-02] MEDS ORDERED: POTASSIUM 25 MEQ EFFERV TAB PO ONE (19:31)
[2018-09-02] MEDS: LABETALOL HCL 100 MG TAB PO SCH (20:10)
[2018-09-02] MEDS: ATORVASTATIN 10 MG TAB PO SCH (20:11)
[2018-09-02] MEDS: predniSONE 20 MG TAB PO SCH (20:11)
[2018-09-03] MEDS: IPRATROPIUM BROM 0.5MG/2.5ML NEB SCH ×4 (02:25→20:15)
[2018-09-03] MEDS: ALBUTEROL 2.5 MG/3 ML NEB SOL NEB SCH ×4 (02:25→20:15)
--- NOTE | 2018-09-03 02:52 | P.HP ---
Certification for Inpatient Patient admitted to: Inpatient With expected LOS: >2 Midnights Patient will require the following post-hospital care: None Practitioner: I am a practitioner with admitting privileges, knowledge of patient current condition, hospital course, and medical plan of care. Services: Services provided to patient in accordance with Admission requirements found in Title 42 Section 412.3 of the Code of Federal Regulations Patient History Date of Service: 09/02/18 Reason for admission: Shortness of breath History of Present Illness: Patient is a 77-year-old gentleman came into the hospital with difficulty breathing patient agrees in the hospital for similar complaint was found have a right-sided pneumonia. His imaging studies revealed that the pneumonia has progressed. Patient is having significant shortness of breath and was required to be on BiPAP. His respiratory status has Gradually improved. He is clinically feeling much better, and he should be stable to go to a telemetry floor. Will also need close follow-up, and will have our surgical team to assess. Patient is clinically feeling. Will continue to monitor him with serial chest x-rays. Monitor his labs as well. Anticipate discharge home in 48 -72 hr Allergies banana Allergy (Mild, Verified 03/09/18 02:47) Itching Home Medications: Albuterol Sulfate [Proair Respiclick] 2 puff IH QID PRN 09/02/18 Cholecalciferol (Vitamin D3) [Vitamin D3] 5,000 unit PO DAILY 09/02/18 Clopidogrel Bisulfate [Plavix] 75 mg PO DAILY 09/02/18 Fenofibrate [Tricor] 48 mg PO DAILY 09/02/18 Labetalol HCl [Trandate] 200 mg PO BID 09/02/18 Pravastatin Sodium 40 mg PO DAILY 09/02/18 Prednisone [Deltasone] 10 mg PO BID 09/02/18 Theophylline [Ranjit-Dur] 100 mg PO DAILY 09/02/18 hydroCHLOROthiazide [Hydrochlorothiazide] 25 mg PO DAILY 09/02/18 - Past Medical/Surgical History Has patient received pneumonia vaccine in the past: No Diabetic: No -: COPD -: HTN -: Hyperlipidemia -: Vasectomy -: Leg surgery - Family History Father Medical History: Cancer Brother Medical History: Cancer - Social History Smoking Status: Former smoker Alcohol use: No CD- Drugs: No Caffeine use: Yes Place of Residence: Home Review of Systems 10-point ROS is otherwise unremarkable Physical Examination - Vital Signs Temperature: 97 F Blood Pressure: 120/79 Pulse: 96 Respirations: 19 Pulse Ox (%): 93 - Physical Exam General: Alert, In no apparent distress, Oriented x3 HEENT: Atraumatic, PERRLA, Mucous membr. moist/pink, EOMI, Sclerae nonicteric Neck: Supple, 2+ carotid pulse no bruit, No LAD, Without JVD or thyroid abnormality Respiratory: Diminished, Expiratory wheezes, Rhonchi/gurgles Cardiovascular: Regular rate/rhythm, Normal S1 S2, Systolic murmur Gastrointestinal: Normal bowel sounds, Hypoactive, Soft and benign, Non- distended, No tenderness Musculoskeletal: No clubbing, No swelling, No tenderness Integumentary: No rashes Neurological: Normal gait, Normal speech, Normal strength at 5/5 x4 extr, Normal tone, Sensation intact, Cranial nerves 3-12 intact, Normal affect Lymphatics: No axilla or inguinal lymphadenopathy - Studies Laboratory Data (last 24 hrs) 09/02/18 03:25: PT 12.8 H, INR 1.08, APTT 27.8 09/02/18 03:25: Sodium 136, Potassium 3.7, BUN 19 H, Creatinine 1.00, Glucose 171 H, Magnesium 1.7 L, Total Bilirubin 1.1 H, AST 22, ALT 39, Alkaline Phosphatase 40 L, Lipase 76 09/02/18 03:25: WBC 16.3 H, Hgb 15.3, Hct 45.8, Plt Count 247 D Assessment & Plan - Problems (Diagnosis) (1) Right lower lobe pneumonia Current Visit: Yes Status: Acute (2) Acute exacerbation of chronic obstructive pulmonary disease (COPD) Current Visit: No Status: Acute (3) Dependence on non-invasive ventilation Current Visit: No Status: Acute (4) Hypoxemia Current Visit: No Status: Acute (5) Pneumonia Current Visit: No Status: Acute (6) Respiratory failure Current Visit: No Status: Acute - Plan 1. Continue with IV antibiotics 2. Awaiting cultures 3. Repeat chest x-ray 4. Will proceed with CT scan of the chest to evaluate for postobstructive pneumonia 5. Pulmonary consultation 6. Continue with nebs as needed 7. O2 per protocol 8. Continue with gentle hydration 9. Repeat labs including CBC and renal function in a.m. 10. GI and DVT prophylaxis Discharge Plan: Home Plan to discharge in: Greater than 2 days - Advance Directives Does patient have a Living Will: Yes Does patient have a Durable POA for Healthcare: Yes - Code Status/Comfort Care Code Status Assessed: Yes Code Status: Full Code Critical Care: Yes Time Spent Managing PTS Care (In Minutes): 50
[2018-09-03 04:19] LABS: Absolute Lymphocytes (CBC) 0.9 K/uL (0.7-4.9); Absolute Monocytes 1.2 K/uL (0.1-1.3); Absolute Neutrophil 14.8 K/uL (1.8-8.0); Hematocrit 37.4 % (39.6-49.0); Lymphocytes % 5.2 % (15.3-44.8); MPV 7.9 fL (7.6-11.3); Monocytes % 7.1 % (3.3-12.3); RBC Red Blood Cell Count 4.05 M/uL (4.33-5.43)
[2018-09-03 04:43] LABS: ALT/SGPT 29 U/L (12-78); AST/SGOT 14 U/L (15-37); Albumin 2.3 g/dL (3.4-5.0); Alkaline Phosphatase 29 U/L (45-117); BUN Blood Urea Nitrogen 19 mg/dL (7-18); Bicarbonate 36 mmol/L (21-32); Bilirubin Total 0.5 mg/dL (0.2-1.0); Glucose Level 180 mg/dL (74-106); HDL Cholesterol 34 mg/dL (40-60); LDL Cholesterol, Calculated 67 (<130); Magnesium 2.2 mg/dL (1.8-2.4); NT PRO-BNP 735 pg/mL (<450); Phosphorus 2.5 mg/dL (2.5-4.9); Potassium 4.2 mmol/L (3.5-5.1); Protein, Total 5.6 g/dL (6.4-8.2); Sodium Level 138 mmol/L (136-145)
[2018-09-03 05:16] LABS: Blood Morphology Comment NOT SEEN (NOT SEEN); Platelet Estimate ADEQ
[2018-09-03] MEDS: PIPER/TAZO/NS 3.375gm 3.375 GM/100 ML BAG IVPB SCH (06:48)
[2018-09-03] MEDS: POTASS/SODIUM PHOSPHATE 1 PKT POWD.PACK PO SCH ×3 (06:48→09:00)
--- NOTE | 2018-09-03 07:13 | EKG ---
Test Date: 2018-09-02 Test Time: 03:14:13 Lead Scientist: AICHA MEASUREMENT RESULTS: Intervals: Rate: 110 AL: 126 QRSD: 78 QT: 312 QTc: 422 [place]: P: 78 AL: 126 QRS: 82 T: 69 INTERPRETIVE STATEMENTS: Sinus tachycardia with fusion complexes Otherwise normal ECG Compared to ECG 08/30/2018 12:33:24 Fusion complex(es) now present Sinus rhythm no longer present Electronically Signed On 09-03-18 07:11:07 HALF BACKER by Jarred Streeter
[2018-09-03] MEDS: THEOPHYLLINE SR 100 MG TAB PO SCH (08:44)
[2018-09-03] MEDS: ENOXAPARIN 40 MG/0.4 ML SQ SCH (08:49)
[2018-09-03] MEDS: FENOFIBRATE 48 MG TAB PO SCH (08:50)
[2018-09-03] MEDS: hydroCHLOROthiazide 25 MG TAB PO SCH (08:50)
[2018-09-03] MEDS: predniSONE 20 MG TAB PO SCH ×2 (08:51→20:32)
[2018-09-03] MEDS: CLOPIDOGREL 75 MG TABLET PO SCH (08:51)
[2018-09-03] MEDS: VITAMIN D 5,000 UNIT CAP PO SCH (08:52)
[2018-09-03] MEDS: LABETALOL HCL 100 MG TAB PO SCH ×2 (08:52→20:31)
[2018-09-03] MEDS: Levofloxacin500mg IV 500 MG/100 ML BAG IV SCH (08:53)
[2018-09-03] MEDS: NA CHLORIDE 0.9% 1,000 ML IV SCH (08:54)
[2018-09-03 11:55] LABS: Arterial Blood Carboxyhemoglob 1.5 % (0-1.5); Blood Gas Oxyhemoglobin 92.4 % (94-97); Blood O2 Saturation 94.3 % (92-98.5)
--- NOTE | 2018-09-03 13:50 | P.PN ---
Subjective Date of Service: 09/03/18 Chief Complaint: Shortness of breath Patient seen and examined at bedside with RN. Chart reviewed. Case discussed with pulmonology. Currently patient is off of BiPAP on nasal cannula. ABGs shows marked improvement as well. Review of Systems 10-point ROS is otherwise unremarkable Physical Examination - Vital Signs Temperature: 98.2 F Blood Pressure: 109/59 Pulse: 82 Respirations: 26 Pulse Ox (%): 92 - Physical Exam General: Alert, In no apparent distress HEENT: Atraumatic, PERRLA, EOMI Neck: Supple, JVD not distended Respiratory: Normal air movement, Expiratory wheezes, Inspiratory wheezes, Rhonchi/gurgles Cardiovascular: Regular rate/rhythm, Normal S1 S2 Gastrointestinal: Normal bowel sounds, No tenderness Musculoskeletal: No tenderness Integumentary: No rashes Neurological: Normal speech, Normal tone, Normal affect Lymphatics: No axilla or inguinal lymphadenopathy - Studies Medications List Reviewed: Yes Assessment And Plan - Current Problems (Diagnosis) (1) Respiratory failure Onset Date: 09/03/18 Current Visit: No Status: Acute Plan: Acute respiratory failure most likely secondary to hypercapnia secondary to COPD exacerbation -currently on BiPAP p.r.n. would tried weaned to nasal cannula -patient does have home oxygenation -duonebs, steroids, BiPAP at this time for COPD -monitor Qualifiers: Chronicity: acute on chronic Respiratory failure complication: hypoxia and hypercapnia Qualified Code(s): J96.21 - Acute and chronic respiratory failure with hypoxia; J96.22 - Acute and chronic respiratory failure with hypercapnia (2) Right lower lobe pneumonia Onset Date: 09/03/18 Current Visit: Yes Status: Acute Plan: Right lower pneumonia on chest x-ray -currently on Levaquin and Zosyn -will continue to monitor closely and follow up with sputum culture at this time. Qualifiers: Pneumonia type: due to unspecified organism Qualified Code(s): J18.1 - Lobar pneumonia, unspecified organism (3) Acute exacerbation of chronic obstructive pulmonary disease (COPD) Onset Date: 09/03/18 Current Visit: No Status: Acute Plan: Acute on chronic COPD exacerbation most likely secondary to pneumonia -duo nebs, steroids, BiPAP at this time -pulmonology consulted. Awaiting recommendations Discharge Plan: Home Plan to discharge in: 48 Hours - Code Status/Comfort Care Code Status Assessed: Yes Critical Care: No
[2018-09-03] MEDS: ATORVASTATIN 10 MG TAB PO SCH (20:32)
[2018-09-04] MEDS: ALBUTEROL 2.5 MG/3 ML NEB SOL NEB SCH ×4 (02:30→20:00)
[2018-09-04] MEDS: IPRATROPIUM BROM 0.5MG/2.5ML NEB SCH ×4 (02:30→20:00)
[2018-09-04 04:09] LABS: Absolute Monocytes 1.7 K/uL (0.1-1.3); Absolute Neutrophil 16.8 K/uL (1.8-8.0); Basophils % 0.1 % (0-1.3); Hematocrit 40.4 % (39.6-49.0); Lymphocytes % 5.1 % (15.3-44.8); MPV 7.8 fL (7.6-11.3); Monocytes % 8.5 % (3.3-12.3); RBC Red Blood Cell Count 4.37 M/uL (4.33-5.43)
[2018-09-04 04:21] LABS: Magnesium 1.9 mg/dL (1.8-2.4); Phosphorus 2.9 mg/dL (2.5-4.9); Potassium 4.5 mmol/L (3.5-5.1)
[2018-09-04] MEDS: ARFORMOTEROL TARTRATE 15 MCG/2 ML VIAL.NEB NEB SCH ×2 (07:35→20:00)
--- NOTE | 2018-09-04 08:32 | RAD REPORT ---
EXAM DESCRIPTION: [place] Single View09/04/2018 6:28 am CLINICAL HISTORY: Chest pain COMPARISON: September 02 FINDINGS: Mild enlargement of a right upper lobe consolidation measuring 6 centimeters. Worsening in additional right lung pulmonary opacities. Left lung appears clear. Lungs are hyperaerated IMPRESSION: Mild worsening in a right pneumonia
[2018-09-04] MEDS: ENOXAPARIN 40 MG/0.4 ML SQ SCH (09:42)
[2018-09-04] MEDS: CLOPIDOGREL 75 MG TABLET PO SCH (09:43)
[2018-09-04] MEDS: VITAMIN D 5,000 UNIT CAP PO SCH (09:43)
[2018-09-04] MEDS: LABETALOL HCL 100 MG TAB PO SCH ×2 (09:43→21:00)
[2018-09-04] MEDS: THEOPHYLLINE SR 100 MG TAB PO SCH (09:44)
[2018-09-04] MEDS: FENOFIBRATE 48 MG TAB PO SCH (09:44)
[2018-09-04] MEDS: hydroCHLOROthiazide 25 MG TAB PO SCH (09:44)
[2018-09-04] MEDS: predniSONE 20 MG TAB PO SCH ×2 (09:45→20:42)
[2018-09-04] MEDS: Levofloxacin500mg IV 500 MG/100 ML BAG IV SCH (09:45)
[2018-09-04] MEDS ORDERED: METHYLPREDNISOLONE 125 MG INJ IV SCH (14:00)
[2018-09-04 14:21] LABS: Arterial Blood Carboxyhemoglob 1.5 % (0-1.5); Blood Gas Oxyhemoglobin 95.1 % (94-97); Blood O2 Saturation 96.9 % (92-98.5)
--- NOTE | 2018-09-04 17:12 | P.CNS ---
Date of Consult: 09/04/18 Reason for Consult: Pneumonia respiratory failure Chief Complaint: Shortness of breath History of Present Illness: Patient is 77 years of age has been sick for about 4 days complaining of right- sided chest pain increasing shortness of breath was admitted from the floor transfer to the ICU with a respiratory failure he has severe COPD compliant with this therapy at home currently on BiPAP the comfortable alert responsive cooperative chest x-ray shows a right upper lobe infiltrate hemodynamically stable Allergies banana Allergy (Mild, Verified 03/09/18 02:47) Itching Home Medications: Albuterol Sulfate [Proair Respiclick] 2 puff IH QID PRN 09/02/18 Cholecalciferol (Vitamin D3) [Vitamin D3] 5,000 unit PO DAILY 09/02/18 Clopidogrel Bisulfate [Plavix] 75 mg PO DAILY 09/02/18 Fenofibrate [Tricor] 48 mg PO DAILY 09/02/18 Labetalol HCl [Trandate] 200 mg PO BID 09/02/18 Pravastatin Sodium 40 mg PO DAILY 09/02/18 Prednisone [Deltasone] 10 mg PO BID 09/02/18 Theophylline [Ranjit-Dur] 100 mg PO DAILY 09/02/18 hydroCHLOROthiazide [Hydrochlorothiazide] 25 mg PO DAILY 09/02/18 - Past Medical/Surgical History Diabetic: No -: COPD -: HTN -: Hyperlipidemia -: Vasectomy -: Leg surgery - Family History Father Medical History: Cancer Brother Medical History: Cancer - Social History Smoking Status: Former smoker Alcohol use: No CD- Drugs: No Caffeine use: Yes Place of Residence: Home Review of Systems 10-point ROS is otherwise unremarkable General: Weakness Respiratory: Shortness of Breath Cardiovascular: Chest Pain Physical Examination Temp Pulse Resp BP Pulse Ox 98.5 F 88 27 H 115/77 93 09/04/18 12:00 09/04/18 16:00 09/04/18 16:00 09/04/18 16:00 09/04/18 16:00 General: Alert, Oriented x3, Mild distress Respiratory: Clear to auscultation bilaterally, Diminished Cardiovascular: No edema, Regular rate/rhythm, Normal S1 S2 Gastrointestinal: Normal bowel sounds, Soft and benign Musculoskeletal: No clubbing, No swelling - Problems (1) Pneumonia Onset Date: 09/03/18 Current Visit: No Status: Acute Plan: Patient is 77 years of age with a history of severe COPD admitted with a right mid-zone pneumonia of this right upper lobe 0 right-sided superior segmental pneumonia continue with levofloxacin hemodynamically stable white count is elevated vital signs stable changed to prednisone 20 mg twice a day Dc Solu- Medrol continue with levofloxacin Qualifiers: Aspiration pneumonia type: unspecified (2) Respiratory failure with hypoxia and hypercapnia Current Visit: Yes Status: Acute Plan: Patient has hypoxic hypercapnic respiratory failure currently on BiPAP titrate sat to 90% monitored in the ICU
--- NOTE | 2018-09-04 17:25 | P.PN ---
Subjective Date of Service: 09/04/18 Primary Care Provider: Pulmonary-Dr. Jessica Chief Complaint: Shortness of breath Subjective: Other (Patient not improving. Patient with increasing shortness of breath. Patient evaluated and sent to the ICU for close monitoring. ABGs reviewed. Will place on BiPAP.) Physical Examination - Vital Signs Temperature: 98.5 F Blood Pressure: 115/77 Pulse: 88 Respirations: 27 Pulse Ox (%): 93 - Physical Exam General: Alert, Mild distress (Increasing shortness of breath) HEENT: Atraumatic Neck: Supple Respiratory: Diminished (Bilateral), Expiratory wheezes (Bilateral) Cardiovascular: Normal pulses, Regular rate/rhythm Gastrointestinal: Normal bowel sounds, Soft and benign, Non-distended Musculoskeletal: No erythema, No tenderness, No warmth Integumentary: No erythema, No warmth, No cyanosis Neurological: Normal speech, Normal strength at 5/5 x4 extr, Normal tone, Normal affect - Studies Medications List Reviewed: Yes Assessment & Plan Discharge Plan: [facility]sp Plan to discharge in: Greater than 2 days Physician Review Additional Text: Impression: Acute on chronic respiratory failure with hypercapnia secondary to COPD exacerbation and right lower lobe pneumonia Hypertension Hyperlipidemia Plan: Acute on chronic respiratory failure with hypercapnia secondary to COPD exacerbation and right lower lobe pneumonia: Patient transferred to ICU for close monitoring. Will continue with BiPAP. Will need to wean off slowly. Case discussed with pulmonology. Will continue with aggressive COPD treatment. Will continue with IV antibiotic therapy. Will monitor chest x-ray and lab closely. Patient would likely benefit with skilled placement at discharge. Will need to reassess this tomorrow. Hypertension: Continue with medication adjust appropriately. Hyperlipidemia: Continue with medication and adjust appropriately. Time Spent Managing Pts Care (In Minutes): 55
[2018-09-04] MEDS: ATORVASTATIN 10 MG TAB PO SCH (20:43)
[2018-09-05] MEDS: IPRATROPIUM BROM 0.5MG/2.5ML NEB SCH ×4 (01:51→20:55)
[2018-09-05] MEDS: ALBUTEROL 2.5 MG/3 ML NEB SOL NEB SCH ×4 (01:51→20:55)
[2018-09-05 05:16] LABS: Absolute Monocytes 1.1 K/uL (0.1-1.3); Lymphocytes % 7.1 % (15.3-44.8); MPV 7.8 fL (7.6-11.3); Monocytes % 7.6 % (3.3-12.3); RBC Red Blood Cell Count 4.11 M/uL (4.33-5.43)
[2018-09-05] MEDS: ARFORMOTEROL TARTRATE 15 MCG/2 ML VIAL.NEB NEB SCH ×2 (07:30→20:55)
--- NOTE | 2018-09-05 08:07 | P.PN ---
Subjective Date of Service: 09/05/18 Primary Care Provider: Pulmonary-Dr. Jessica Chief Complaint: Pneumonia and COPD Subjective: Improving (Patient is improving currently on BiPAP) Review of Systems General: Weakness Respiratory: Cough, Shortness of Breath Physical Examination - Vital Signs Temperature: 97.4 F Blood Pressure: 103/76 Pulse: 78 Respirations: 23 Pulse Ox (%): 91 - Physical Exam General: Alert, Oriented x3, Mild distress Respiratory: Expiratory wheezes Cardiovascular: No edema, Regular rate/rhythm, Normal S1 S2 - Studies Medications List Reviewed: Yes Assessment And Plan - Current Problems (Diagnosis) (1) Pneumonia Onset Date: 09/03/18 Current Visit: No Status: Acute Plan: Patient is 77 years of age admitted with a right upper lobe pneumonia COPD continue with present treatment he is doing well trial off BiPAP on nasal cannula transfer to the floor stable to be transferred to the floor change to p.o. level Floxin and currently on p.o. prednisone Qualifiers: Aspiration pneumonia type: unspecified (2) Respiratory failure with hypoxia and hypercapnia Current Visit: Yes Status: Acute Plan: Patient has hypoxic hypercapnic respiratory failure currently on BiPAP titrate sat to 90% monitored in the ICU Physician Review Additional Text: Impression: Acute on chronic respiratory failure with hypercapnia secondary to COPD exacerbation and right lower lobe pneumonia Hypertension Hyperlipidemia Plan: Acute on chronic respiratory failure with hypercapnia secondary to COPD exacerbation and right lower lobe pneumonia: Patient transferred to ICU for close monitoring. Will continue with BiPAP. Will need to wean off slowly. Case discussed with pulmonology. Will continue with aggressive COPD treatment. Will continue with IV antibiotic therapy. Will monitor chest x-ray and lab closely. Patient would likely benefit with skilled placement at discharge. Will need to reassess this tomorrow. Hypertension: Continue with medication adjust appropriately. Hyperlipidemia: Continue with medication and adjust appropriately.
[2018-09-05] MEDS: FENOFIBRATE 48 MG TAB PO SCH (08:41)
[2018-09-05] MEDS: THEOPHYLLINE SR 100 MG TAB PO SCH (08:41)
[2018-09-05] MEDS: VITAMIN D 5,000 UNIT CAP PO SCH (08:41)
[2018-09-05] MEDS: hydroCHLOROthiazide 25 MG TAB PO SCH (08:41)
[2018-09-05] MEDS: levoFLOXacin 750 MG TAB PO SCH (08:41)
[2018-09-05] MEDS: ENOXAPARIN 40 MG/0.4 ML SQ SCH (08:42)
[2018-09-05] MEDS: LABETALOL HCL 100 MG TAB PO SCH ×2 (08:42→20:40)
[2018-09-05] MEDS: CLOPIDOGREL 75 MG TABLET PO SCH (08:42)
[2018-09-05] MEDS: predniSONE 20 MG TAB PO SCH ×2 (08:42→20:40)
--- NOTE | 2018-09-05 08:49 | RAD REPORT ---
EXAM DESCRIPTION: [place] Single View09/05/2018 6:31 am CLINICAL HISTORY: Chest pain COMPARISON: September 04 FINDINGS: Mild improvement in the right upper lobe consolidation. Minimal improvement in additional right lung opacities. No other change noted IMPRESSION: Mild improvement in a right pneumonia
[2018-09-05 10:45] LABS: Arterial Blood Carboxyhemoglob 1.7 % (0-1.5); Blood Gas Oxyhemoglobin 92.5 % (94-97); Blood O2 Saturation 94.6 % (92-98.5)
--- NOTE | 2018-09-05 15:39 | P.PN ---
Subjective Date of Service: 09/05/18 Primary Care Provider: Pulmonary-Dr. Jessica Chief Complaint: Pneumonia and COPD Subjective: Other (Patient is slightly improved. Still hypoxic at times especially on nasal cannula and talking. Patient improved with BiPAP.) Physical Examination - Vital Signs Temperature: 97.4 F Blood Pressure: 100/67 Pulse: 76 Respirations: 20 Pulse Ox (%): 93 - Physical Exam General: Alert, In no apparent distress, Oriented x3, Cooperative HEENT: Atraumatic Neck: Supple Respiratory: Expiratory wheezes (Bilateral), Inspiratory wheezes (Bilateral), Other (Slight improvement in aeration) Cardiovascular: Normal pulses, Regular rate/rhythm Gastrointestinal: Normal bowel sounds, Soft and benign, Non-distended, No masses , No rebound, No guarding Musculoskeletal: No tenderness, No warmth Integumentary: No warmth, No cyanosis Neurological: Normal speech, Normal strength at 5/5 x4 extr, Normal tone, Normal affect - Studies Medications List Reviewed: Yes Assessment & Plan Discharge Plan: Other (Skilled facility) Plan to discharge in: Greater than 2 days Physician Review Additional Text: Impression: Acute on chronic respiratory failure with hypercapnia secondary to COPD exacerbation and right lower lobe pneumonia Hypertension Hyperlipidemia Plan: Acute on chronic respiratory failure with hypercapnia, hypoxia secondary to COPD exacerbation and right lower lobe pneumonia: Patient continues to slowly improved. Patient still hypoxic times when on nasal cannula and talking. Patient to continue with BiPAP and tried a wean off. Medications adjusted by pulmonology. Once more stable patient can be transferred to floor. Patient agrees with possible skilled placement. Will have director social service help in this process. Hypertension: Continue with medication and adjust appropriately. Will decrease medication Hyperlipidemia: Continue with medication and adjust appropriately. Time Spent Managing Pts Care (In Minutes): 55
[2018-09-05] MEDS: ATORVASTATIN 10 MG TAB PO SCH (20:40)
[2018-09-06] MEDS: ALBUTEROL 2.5 MG/3 ML NEB SOL NEB SCH ×2 (02:25→08:20)
[2018-09-06] MEDS: IPRATROPIUM BROM 0.5MG/2.5ML NEB SCH ×2 (02:25→08:20)
[2018-09-06 05:00] LABS: Absolute Lymphocytes (CBC) 1.2 K/uL (0.7-4.9); Absolute Monocytes 0.9 K/uL (0.1-1.3); Absolute Neutrophil 10.5 K/uL (1.8-8.0); Basophils % 0.1 % (0-1.3); Hematocrit 38.1 % (39.6-49.0); Lymphocytes % 9.7 % (15.3-44.8); MPV 7.4 fL (7.6-11.3); Monocytes % 7.4 % (3.3-12.3); RBC Red Blood Cell Count 4.11 M/uL (4.33-5.43)
[2018-09-06 05:11] LABS: BUN Blood Urea Nitrogen 21 mg/dL (7-18); Bicarbonate 36 mmol/L (21-32); Glucose Level 207 mg/dL (74-106); Magnesium 1.7 mg/dL (1.8-2.4); Potassium 4.2 mmol/L (3.5-5.1); Sodium Level 131 mmol/L (136-145)
[2018-09-06] MEDS ORDERED: MAGNESIUM SULFATE 1 gm IVPB 1 GM/100 ML BAG IV ONE (05:14)
[2018-09-06] MEDS: ARFORMOTEROL TARTRATE 15 MCG/2 ML VIAL.NEB NEB SCH ×2 (08:20→20:18)
[2018-09-06] MEDS: FENOFIBRATE 48 MG TAB PO SCH (09:52)
[2018-09-06] MEDS: THEOPHYLLINE SR 100 MG TAB PO SCH (09:52)
[2018-09-06] MEDS: LABETALOL HCL 100 MG TAB PO SCH (09:53)
[2018-09-06] MEDS: VITAMIN D 5,000 UNIT CAP PO SCH (09:53)
[2018-09-06] MEDS: CLOPIDOGREL 75 MG TABLET PO SCH (09:53)
[2018-09-06] MEDS: ENOXAPARIN 40 MG/0.4 ML SQ SCH (09:53)
[2018-09-06] MEDS: levoFLOXacin 750 MG TAB PO SCH (09:53)
[2018-09-06] MEDS: predniSONE 20 MG TAB PO SCH ×2 (09:53→20:43)
[2018-09-06] MEDS ORDERED: BENZONATATE 100 MG CAP PO PRN (11:07)
[2018-09-06] MEDS ORDERED: HYDRALAZINE HCL 20 MG/ML VIAL IV PRN (11:09)
--- NOTE | 2018-09-06 11:16 | P.PN ---
Subjective Date of Service: 09/06/18 Primary Care Provider: Pulmonary-Dr. Jessica Chief Complaint: Pneumonia and COPD Subjective: Other (Patient is slowly improving. Patient had some hemopytosis this morning but mild.) Physical Examination - Vital Signs Temperature: 99.0 F Blood Pressure: 116/67 Pulse: 98 Respirations: 26 Pulse Ox (%): 90 - Physical Exam General: Alert, In no apparent distress, Oriented x3, Cooperative HEENT: Atraumatic Neck: Supple Respiratory: Diminished (Bilateral to the bases), Expiratory wheezes (Bilateral) , Inspiratory wheezes (Bilateral) Cardiovascular: Normal pulses, Regular rate/rhythm Gastrointestinal: Normal bowel sounds, Soft and benign, Non-distended, No masses , No rebound, No guarding Musculoskeletal: No erythema, No tenderness, No warmth Integumentary: No tenderness/swelling, No erythema, No warmth, No cyanosis Neurological: Normal speech, Normal strength at 5/5 x4 extr, Normal tone, Normal affect - Studies Medications List Reviewed: Yes Assessment & Plan Discharge Plan: Other (Skilled placement) Plan to discharge in: Greater than 2 days Physician Review Additional Text: Impression: Acute on chronic respiratory failure with hypercapnia secondary to COPD exacerbation and right lower lobe pneumonia Hypertension Hyperlipidemia Hypomagnesia CAD GERD Plan: Acute on chronic respiratory failure with hypercapnia, hypoxia secondary to COPD exacerbation and right lower lobe pneumonia: Patient continues to slowly improved. Patient reported some hemopytosis this morning. Will add medication for cough and congestion. Will continue to try to wean off BiPAP. Likely able to send to the floor tomorrow. Will discuss in detail with pulmonology. Will continue with COPD treatment. Patient on antibiotic therapy. Will discuss with director social service about skilled placement or if the patient is able to go to an LTAC facility then will consider this. Patient willing to go. This will likely be required. Recheck chest x-ray tomorrow. Hypertension: Will discontinue labetalol due to low blood pressure. Will provide hydralazine as needed. Will check echocardiogram. Hyperlipidemia: Continue with medication and adjust appropriately. Hypomagnesia: Continue with replacement therapy. Will continue monitor. CAD: Continue with Plavix. Patient on DVT prophylaxis. GERD: Will provide Protonix. Time Spent Managing Pts Care (In Minutes): 55
[2018-09-06] MEDS: ALBUTEROL 2.5 MG/3 ML NEB SOL NEB PRN (13:05)
[2018-09-06] MEDS: IPRATROPIUM BROM 0.5MG/2.5ML NEB PRN ×2 (13:05→20:18)
--- NOTE | 2018-09-06 15:48 | P.PN ---
Subjective Date of Service: 09/06/18 Primary Care Provider: Pulmonary-Dr. Jessica Chief Complaint: Pneumonia and COPD Patient in complaining OM auspices of the past 3 or 4 days fever chills or chest pain is somewhat better Review of Systems General: Weakness Respiratory: Cough, Shortness of Breath, Hemoptysis Physical Examination - Vital Signs Temperature: 99.0 F Blood Pressure: 103/76 Pulse: 91 Respirations: 19 Pulse Ox (%): 94 - Physical Exam General: Alert, Oriented x3 HEENT: Atraumatic Neck: Supple Respiratory: Crackles/rales, Expiratory wheezes Cardiovascular: No edema, Regular rate/rhythm - Studies Medications List Reviewed: Yes Assessment & Plan - Problems (Diagnosis) (1) Pneumonia Onset Date: 09/03/18 Current Visit: No Status: Acute Plan: Patient is 77 years of age admitted with pneumonia and COPD is also now having hemoptysis patient's white count is declined significantly cultures are all negative patient is stable to be transferred to the floor continue monitoring sputum cultures show normal upper respiratory rajinder Qualifiers: Aspiration pneumonia type: unspecified (2) Respiratory failure with hypoxia and hypercapnia Current Visit: Yes Status: Acute Plan: Patient has hypoxic hypercapnic respiratory failure currently on BiPAP titrate sat to 90% monitored in the ICU Physician Review Additional Text: Impression: Acute on chronic respiratory failure with hypercapnia secondary to COPD exacerbation and right lower lobe pneumonia Hypertension Hyperlipidemia Hypomagnesia CAD GERD Plan: Acute on chronic respiratory failure with hypercapnia, hypoxia secondary to COPD exacerbation and right lower lobe pneumonia: Patient continues to slowly improved. Patient reported some hemopytosis this morning. Will add medication for cough and congestion. Will continue to try to wean off BiPAP. Likely able to send to the floor tomorrow. Will discuss in detail with pulmonology. Will continue with COPD treatment. Patient on antibiotic therapy. Will discuss with social welfare clerk about skilled placement or if the patient is able to go to an LTAC facility then will consider this. Patient willing to go. This will likely be required. Recheck chest x-ray tomorrow. Hypertension: Will discontinue labetalol due to low blood pressure. Will provide hydralazine as needed. Will check echocardiogram. Hyperlipidemia: Continue with medication and adjust appropriately. Hypomagnesia: Continue with replacement therapy. Will continue monitor. CAD: Continue with Plavix. Patient on DVT prophylaxis. GERD: Will provide Protonix.
[2018-09-06] MEDS: GUAIFENESIN 600 MG SA TAB PO SCH (20:43)
[2018-09-06] MEDS: ATORVASTATIN 10 MG TAB PO SCH (20:43)
[2018-09-07 05:07] LABS: Absolute Lymphocytes (CBC) 1.5 K/uL (0.7-4.9); Absolute Monocytes 0.8 K/uL (0.1-1.3); Absolute Neutrophil 9.8 K/uL (1.8-8.0); Basophils % 0.1 % (0-1.3); Eosinophils % 0.1 % (0-4.4); Hematocrit 40.5 % (39.6-49.0); Lymphocytes % 12.1 % (15.3-44.8); MPV 7.6 fL (7.6-11.3); Monocytes % 6.8 % (3.3-12.3); RBC Red Blood Cell Count 4.36 M/uL (4.33-5.43)
[2018-09-07 05:22] LABS: Phosphorus 2.7 mg/dL (2.5-4.9); Potassium 4.9 mmol/L (3.5-5.1)
[2018-09-07 05:33] VITALS: BMI 23.2
[2018-09-07 05:33] LABS: Blood Morphology Comment NOT SEEN (NOT SEEN); Platelet Estimate ADEQ
[2018-09-07] MEDS: PANTOPRAZOLE 40MG TABLET PO SCH (05:35)
--- NOTE | 2018-09-07 07:18 | RAD REPORT ---
EXAM DESCRIPTION: RAD - Chest Single View - 09/07/2018 6:14 am CLINICAL HISTORY: Pneumonia, COPD COMPARISON: September 05, September 04 TECHNIQUE: AP portable chest image was obtained [id number] hours . FINDINGS: Baseline interstitial fibrotic pattern is again noted. The lateral right upper lobe consol idation has shown a very minimal improvement since September 05. Medial right base infiltrative huff ges are also fractionally improved. No progressive process. No failure or volume overload suspected. Heart and vasculature are normal. No measurable pleural effusion and no pneumothorax. No acute bony a bnormality seen. No acute aortic findings suspected. IMPRESSION: Minimal improvement in the right upper lobe consolidated pneumonia and the medial right lung base pneumonia.
--- NOTE | 2018-09-07 07:23 | ECHO ---
HEIGHT: 5 ft 9 in WEIGHT: 157 lb 6 oz DATE OF STUDY: 09/06/[address]: Abdifatah Bray DO 2-DIMENSIONAL: YES M.MODE: YES DOPPLER: YES COLOR FLOW: YES TDS: YES PORTABLE: YES DEFINITY: BUBBLE STUDY: DIAGNOSIS: SHORTNESS OF BREATH, EVALUATE FOR CONGESTIVE HEART FAILURE CARDIAC HISTORY: CATHERIZATION: YES SURGERY: NO PROSTHETIC VALVE: NO PACEMAKER: NO MEASUREMENTS (cm) DIASTOLIC (NORMALS) SYSTOLIC (NORMALS) IVSd 0.8 (0.6-1.2) LA Diam 2.2 (1.9-4.0) LVEF 63% LVIDd 3.3 (3.5-5.7) LVIDs 2.2 (2.0-3.5) %FS 33% LVPWd 1.0 (0.6-1.2) Ao Diam (2.0-3.7) 2 DIMENSIONAL ASSESSMENT: RIGHT ATRIUM: DILATED LEFT ATRIUM: NORMAL RIGHT VENTRICLE: DILATED LEFT VENTRICLE: NORMAL TRICUSPID VALVE: NORMAL MITRAL VALVE: NORMAL PULMONIC VALVE: NORMAL AORTIC VALVE: NORMAL PERICARDIAL EFFUSION: TRACE AORTIC ROOT: NORMAL LEFT VENTRICULAR WALL MOTION: PARADOXICAL SEPTAL MOTION DOPPLER/COLOR FLOW: MILD TO MODERATE TRICUSPID REGURGITATION. SEVERE PULMONARY HYPERTENSION. ESTIMATED RIGHT VENTRICULAR SYSTOLIC PRESURE >60 mmHg. COMMENTS: NORMAL LEFT VENTRICULAR EJECTION FRACTION. DILATED LEFT AND RIGHT ATRIUM. PARACARDIAL EFFUSION. MILD TO MODERATE TRICUSPID REGURGITATION. SEVERE PULMONARY HYPERTENSION. TECHNOLOGIST: KISHAN HUNTER
[2018-09-07] MEDS: predniSONE 20 MG TAB PO SCH (08:34)
[2018-09-07] MEDS: VITAMIN D 5,000 UNIT CAP PO SCH (08:34)
[2018-09-07] MEDS: ENOXAPARIN 40 MG/0.4 ML SQ SCH (08:35)
[2018-09-07] MEDS: GUAIFENESIN 600 MG SA TAB PO SCH ×2 (08:35→21:16)
[2018-09-07] MEDS: levoFLOXacin 750 MG TAB PO SCH (08:35)
[2018-09-07] MEDS: FENOFIBRATE 48 MG TAB PO SCH (08:35)
[2018-09-07] MEDS: THEOPHYLLINE SR 100 MG TAB PO SCH (08:35)
[2018-09-07] MEDS: CLOPIDOGREL 75 MG TABLET PO SCH (08:35)
[2018-09-07] MEDS: ARFORMOTEROL TARTRATE 15 MCG/2 ML VIAL.NEB NEB SCH ×2 (09:01→20:00)
--- NOTE | 2018-09-07 15:03 | P.PN ---
Subjective Date of Service: 09/07/18 Primary Care Provider: Pulmonary-Dr. Jessica Chief Complaint: Pneumonia and COPD Subjective: Other (Patient is slowly improving. Still requiring BiPAP at night. ) Physical Examination - Vital Signs Temperature: 97.2 F Blood Pressure: 109/72 Pulse: 92 Respirations: 24 Pulse Ox (%): 94 - Physical Exam General: Alert, In no apparent distress, Oriented x3, Cooperative HEENT: Atraumatic Neck: Supple Respiratory: Diminished (Bilateral) Cardiovascular: Normal pulses, Regular rate/rhythm Gastrointestinal: Normal bowel sounds, Soft and benign, Non-distended, No tenderness, No masses, No rebound, No guarding Musculoskeletal: No erythema, No tenderness, No warmth Integumentary: No erythema, No warmth, No cyanosis Neurological: Normal speech, Normal strength at 5/5 x4 extr, Normal tone, Normal affect - Studies Microbiology Data (last 24 hrs): 09/02/18 03:30 Blood - Blood Aerobic Blood Culture - Final No growth in 5 days. 09/02/18 03:30 Blood - Blood Anaerobic Blood Culture - Final No growth in 5 days. 09/02/18 03:15 Blood - Blood Aerobic Blood Culture - Final No growth in 5 days. 09/02/18 03:15 Blood - Blood Anaerobic Blood Culture - Final No growth in 5 days. Medications List Reviewed: Yes Assessment & Plan Discharge Plan: Other (snf facility) Plan to discharge in: 48 Hours Physician Review Additional Text: Impression: Acute on chronic respiratory failure with hypercapnia secondary to COPD exacerbation and right lower lobe pneumonia Severe Pulmonary Hypertension Hyperlipidemia Hypomagnesia CAD GERD Plan: Acute on chronic respiratory failure with hypercapnia, hypoxia secondary to COPD exacerbation and right lower lobe pneumonia: Patient continues to slowly improved. Continue with current meds. Will continue to try to wean off BiPAP. Transfer to the floor. medical services manager about skilled placement or if the patient is able to go to an LTAC facility then will consider this. Will add Lasix due to severe pulmonary HTN. Will check with Pulmonary to see if patient will need noninvasive ventilator. Pulmonary Hypertension: Labetalol discontinued due to low blood pressure. Will provide hydralazine as needed. ECHO shows severe pulmonary HTN. Will add Lasix. Will discuss with Pulmonary. Hyperlipidemia: Continue with medication and adjust appropriately. Hypomagnesia: Continue with replacement therapy. Will continue monitor. CAD: Continue with Plavix. Patient on DVT prophylaxis. GERD: Will provide Protonix. Time Spent Managing Pts Care (In Minutes): 55
--- NOTE | 2018-09-07 16:47 | P.PN ---
Subjective Date of Service: 09/07/18 Primary Care Provider: Pulmonary-Dr. Jessica Chief Complaint: Pneumonia and COPD Patient is still requiring BiPAP as a mopped this is is decreased and chest x- ray stable this infiltrate extending to the hilum denies any chest pain Review of Systems General: Weakness Respiratory: Cough, Shortness of Breath, Hemoptysis Physical Examination - Vital Signs Temperature: 97.2 F Blood Pressure: 109/72 Pulse: 92 Respirations: 24 Pulse Ox (%): 94 - Physical Exam General: Alert, Mild distress HEENT: Atraumatic Neck: Supple Respiratory: Expiratory wheezes Cardiovascular: No edema, Regular rate/rhythm - Studies Microbiology Data (last 24 hrs): 09/02/18 03:30 Blood - Blood Aerobic Blood Culture - Final No growth in 5 days. 09/02/18 03:30 Blood - Blood Anaerobic Blood Culture - Final No growth in 5 days. 09/02/18 03:15 Blood - Blood Aerobic Blood Culture - Final No growth in 5 days. 09/02/18 03:15 Blood - Blood Anaerobic Blood Culture - Final No growth in 5 days. Medications List Reviewed: Yes Assessment & Plan - Problems (Diagnosis) (1) Pneumonia Onset Date: 09/03/18 Current Visit: No Status: Acute Plan: Patient is 77 years of age admitted with a pneumonia is white count is improving reduce the dose of prednisone to 10 mg twice a day also ordered a CT of the chest with contrast patient cultures are still negative continuous pulse ox Qualifiers: Aspiration pneumonia type: unspecified (2) Respiratory failure with hypoxia and hypercapnia Current Visit: Yes Status: Acute Plan: Patient has hypoxic hypercapnic respiratory failure currently on BiPAP titrate sat to 90% monitored in the ICU Physician Review Additional Text: Impression: Acute on chronic respiratory failure with hypercapnia secondary to COPD exacerbation and right lower lobe pneumonia Severe Pulmonary Hypertension Hyperlipidemia Hypomagnesia CAD GERD Plan: Acute on chronic respiratory failure with hypercapnia, hypoxia secondary to COPD exacerbation and right lower lobe pneumonia: Patient continues to slowly improved. Continue with current meds. Will continue to try to wean off BiPAP. Transfer to the floor. implementation services analyst about skilled placement or if the patient is able to go to an LTAC facility then will consider this. Will add Lasix due to severe pulmonary HTN. Will check with Pulmonary to see if patient will need noninvasive ventilator. Pulmonary Hypertension: Labetalol discontinued due to low blood pressure. Will provide hydralazine as needed. ECHO shows severe pulmonary HTN. Will add Lasix. Will discuss with Pulmonary. Hyperlipidemia: Continue with medication and adjust appropriately. Hypomagnesia: Continue with replacement therapy. Will continue monitor. CAD: Continue with Plavix. Patient on DVT prophylaxis. GERD: Will provide Protonix.
--- NOTE | 2018-09-07 18:42 | RAD REPORT ---
EXAM DESCRIPTION: CT - Thorax W/ Con - 09/07/2018 6:29 pm CLINICAL HISTORY: Hemoptysis COMPARISON: None TECHNIQUE: Computed axial tomography of the chest was obtained. 100 cc Isovue 300 was administered i ntravenously. All CT scans are performed using dose optimization technique as appropriate and may include automated exposure control or mA/KV adjustment according to patient size. FINDINGS: 8 x 1.7 centimeter right upper lobe consolidation is present laterally. Moderate right lower lobe opacities. Minimal left upper lobe opacity No mediastinal or hilar lymphadenopathy is seen. A minimal right pleural effusion is present. . A pericardial effusion is not seen. IMPRESSION: Right lung pneumonia
[2018-09-07] MEDS: FUROSEMIDE 20 MG TABLET PO SCH (18:54)
[2018-09-07] MEDS: ATORVASTATIN 10 MG TAB PO SCH (21:15)
[2018-09-07] MEDS: predniSONE 10 MG TAB PO SCH (21:16)
[2018-09-08] MEDS: PANTOPRAZOLE 40MG TABLET PO SCH (06:07)
[2018-09-08 06:28] LABS: Absolute Monocytes 1.2 K/uL (0.1-1.3); Absolute Neutrophil 11.3 K/uL (1.8-8.0); Basophils % 0.1 % (0-1.3); Eosinophils % 0.1 % (0-4.4); Hematocrit 42.3 % (39.6-49.0); Lymphocytes % 13.5 % (15.3-44.8); MPV 7.6 fL (7.6-11.3); Monocytes % 8.5 % (3.3-12.3)
[2018-09-08 06:38] LABS: BUN Blood Urea Nitrogen 20 mg/dL (7-18); Bicarbonate 38 mmol/L (21-32); Glucose Level 181 mg/dL (74-106); Magnesium 1.9 mg/dL (1.8-2.4); Potassium 4.4 mmol/L (3.5-5.1); Sodium Level 139 mmol/L (136-145)
[2018-09-08] MEDS: ARFORMOTEROL TARTRATE 15 MCG/2 ML VIAL.NEB NEB SCH ×2 (07:39→19:54)
--- NOTE | 2018-09-08 07:57 | RAD REPORT ---
EXAM DESCRIPTION: RAD - Chest Single View - 09/08/2018 6:29 am CLINICAL HISTORY: Pneumonia, COPD COMPARISON: CT chest September 07, portable chest September 07 TECHNIQUE: AP portable chest image was obtained 0559 hours . FINDINGS: Moderate-size pneumonia along the inferior aspect of the right upper lobe has show no impr ovement. Right lower lobe pneumonia also stable over the interval. No progressive left lung field fin ding. Trachea remains midline. Heart and vasculature are normal. No measurable pleural effusion and n o pneumothorax. No acute bony abnormality seen. No acute aortic findings suspected. IMPRESSION: Right upper lobe and right lower lobe pneumonia findings are stable from prior day study . No new or progressive finding.
[2018-09-08] MEDS: CLOPIDOGREL 75 MG TABLET PO SCH (08:30)
[2018-09-08] MEDS: levoFLOXacin 750 MG TAB PO SCH (08:30)
[2018-09-08] MEDS: predniSONE 10 MG TAB PO SCH ×2 (08:30→22:05)
[2018-09-08] MEDS: VITAMIN D 5,000 UNIT CAP PO SCH (08:30)
[2018-09-08] MEDS: FUROSEMIDE 20 MG TABLET PO SCH ×2 (08:31→16:29)
[2018-09-08] MEDS: GUAIFENESIN 600 MG SA TAB PO SCH ×2 (08:31→22:05)
[2018-09-08] MEDS: ENOXAPARIN 40 MG/0.4 ML SQ SCH (08:31)
--- NOTE | 2018-09-08 10:04 | P.PN ---
Subjective Date of Service: 09/08/18 Primary Care Provider: Pulmonary-Dr. Jessica Chief Complaint: Pneumonia and COPD No change still complaining of cough and hemoptysis still very short of breath on mild exertion Review of Systems General: Weakness Respiratory: Cough, Shortness of Breath, Hemoptysis Physical Examination - Vital Signs Temperature: 97.8 F Blood Pressure: 120/76 Pulse: 86 Respirations: 28 Pulse Ox (%): 94 - Physical Exam General: Alert, Oriented x3, Mild distress Respiratory: Rhonchi/gurgles (Crackles on the right side) Cardiovascular: No edema, Regular rate/rhythm - Studies Medications List Reviewed: Yes Assessment & Plan - Problems (Diagnosis) (1) Pneumonia Onset Date: 09/03/18 Current Visit: No Status: Acute Plan: Patient is 77 years of age admitted with a right upper lobe pneumonia confirmed with CT scan he has significant air space disease these are all negative I suggest change to Augmentin 500 mg twice a day and add doxycycline for the possibility of Mr SA continue with low-dose prednisone continue with thymine and vitamin-C vital signs stable off BiPAP feeling very weak needs physical therapy Qualifiers: Aspiration pneumonia type: unspecified (2) Respiratory failure with hypoxia and hypercapnia Current Visit: Yes Status: Acute Plan: Patient has hypoxic hypercapnic respiratory failure currently on BiPAP titrate sat to 90% monitored in the ICU Physician Review Additional Text: Impression: Acute on chronic respiratory failure with hypercapnia secondary to COPD exacerbation and right lower lobe pneumonia Severe Pulmonary Hypertension Hyperlipidemia Hypomagnesia CAD GERD Plan: Acute on chronic respiratory failure with hypercapnia, hypoxia secondary to COPD exacerbation and right lower lobe pneumonia: Patient continues to slowly improved. Continue with current meds. Will continue to try to wean off BiPAP. Transfer to the floor. financial services agent about skilled placement or if the patient is able to go to an LTAC facility then will consider this. Will add Lasix due to severe pulmonary HTN. Will check with Pulmonary to see if patient will need noninvasive ventilator. Pulmonary Hypertension: Labetalol discontinued due to low blood pressure. Will provide hydralazine as needed. ECHO shows severe pulmonary HTN. Will add Lasix. Will discuss with Pulmonary. Hyperlipidemia: Continue with medication and adjust appropriately. Hypomagnesia: Continue with replacement therapy. Will continue monitor. CAD: Continue with Plavix. Patient on DVT prophylaxis. GERD: Will provide Protonix.
[2018-09-08] MEDS: THEOPHYLLINE SR 100 MG TAB PO SCH (10:26)
[2018-09-08] MEDS: FENOFIBRATE 48 MG TAB PO SCH (10:26)
[2018-09-08] MEDS: DOXYCYCLINE 100 MG CAP PO SCH ×2 (10:33→22:05)
[2018-09-08] MEDS: AMOX/K CLAV 500 MG TAB PO SCH ×2 (10:33→22:05)
[2018-09-08] MEDS: ASCORBIC ACID 500 MG TABLET PO SCH (10:33)
--- NOTE | 2018-09-08 11:05 | P.PN ---
Subjective Date of Service: 09/08/18 Primary Care Provider: Pulmonary-Dr. Jessica Chief Complaint: Pneumonia and COPD Subjective: Other (Stable) Physical Examination - Vital Signs Temperature: 97.8 F Blood Pressure: 120/76 Pulse: 86 Respirations: 28 Pulse Ox (%): 94 - Physical Exam General: Alert, In no apparent distress, Cooperative HEENT: Atraumatic Neck: Supple Respiratory: Crackles/rales (mild and improved), Expiratory wheezes, Inspiratory wheezes Cardiovascular: Normal pulses, Regular rate/rhythm Gastrointestinal: Normal bowel sounds, Soft and benign, No tenderness, No masses , No rebound, No guarding Musculoskeletal: No erythema, No tenderness, No warmth Integumentary: No tenderness/swelling, No erythema, No warmth, No cyanosis Neurological: Normal speech, Normal strength at 5/5 x4 extr, Normal tone, Normal affect - Studies Medications List Reviewed: Yes Assessment & Plan Discharge Plan: Other (SNF) Plan to discharge in: Greater than 2 days Physician Review Additional Text: Impression: Acute on chronic respiratory failure with hypercapnia secondary to COPD exacerbation and right lower lobe pneumonia Severe Pulmonary Hypertension Hyperlipidemia Hypomagnesia CAD GERD Plan: Acute on chronic respiratory failure with hypercapnia, hypoxia secondary to COPD exacerbation and right lower lobe pneumonia: Patient continues to slowly improved. Continue to wean off. Pulmonary has changed antibiotics to Augmentin and Doxycycline. Will have PT come and assess and slowly exercise. consulting services associate help in in process of setting patient to a skilled facility likely higher level of care. Lasix added yesterday due to pulmonary hypertension. Overall stable. Pulmonary Hypertension: Labetalol discontinued due to low blood pressure. Will provide hydralazine as needed. ECHO shows severe pulmonary HTN. Lasix added yesterday. Will continue to monitor and adjust. Hyperlipidemia: Continue with medication and adjust appropriately. Hypomagnesia: Continue with replacement therapy. Will continue monitor. CAD: Continue with Plavix. Patient on DVT prophylaxis. GERD: Will provide Protonix. Time Spent Managing Pts Care (In Minutes): 55
[2018-09-08] MEDS ORDERED: PNEUMOCOCCAL VACCINE 0.5 ML IMVAC ONE (14:00)
[2018-09-08] MEDS: ATORVASTATIN 10 MG TAB PO SCH (22:05)
[2018-09-09] MEDS: PANTOPRAZOLE 40MG TABLET PO SCH (06:12)
[2018-09-09 06:31] LABS: Absolute Lymphocytes (CBC) 2.5 K/uL (0.7-4.9); Absolute Monocytes 1.3 K/uL (0.1-1.3); Absolute Neutrophil 13.7 K/uL (1.8-8.0); Basophils % 0.2 % (0-1.3); Eosinophils % 0.1 % (0-4.4); Hematocrit 43.5 % (39.6-49.0); Lymphocytes % 14.3 % (15.3-44.8); MPV 7.6 fL (7.6-11.3); Monocytes % 7.4 % (3.3-12.3)
--- NOTE | 2018-09-09 06:35 | RAD REPORT ---
EXAM DESCRIPTION: [place] Single View09/09/2018 6:06 am CLINICAL HISTORY: Chest pain COMPARISON: September 08 FINDINGS: No significant change in the right lung opacities. . The heart is normal size IMPRESSION: No significant change in the right pneumonia
[2018-09-09 06:43] LABS: Magnesium 1.8 mg/dL (1.8-2.4); Potassium 4.4 mmol/L (3.5-5.1)
[2018-09-09] MEDS: ARFORMOTEROL TARTRATE 15 MCG/2 ML VIAL.NEB NEB SCH ×2 (07:37→19:16)
[2018-09-09 08:22] LABS: Blood Morphology Comment NOT SEEN (NOT SEEN); Platelet Estimate ADEQ; Toxic Granulation 1+; Urine White Blood Cell Casts OK
[2018-09-09] MEDS ORDERED: MAGNESIUM SULFATE 1 gm IVPB 1 GM/100 ML BAG IV ONE (09:00)
[2018-09-09] MEDS: AMOX/K CLAV 500 MG TAB PO SCH ×2 (09:22→20:04)
[2018-09-09] MEDS: ASCORBIC ACID 500 MG TABLET PO SCH (09:22)
[2018-09-09] MEDS: VITAMIN D 5,000 UNIT CAP PO SCH (09:23)
[2018-09-09] MEDS: CLOPIDOGREL 75 MG TABLET PO SCH (09:23)
[2018-09-09] MEDS: predniSONE 10 MG TAB PO SCH ×2 (09:23→20:04)
[2018-09-09] MEDS: DOXYCYCLINE 100 MG CAP PO SCH ×2 (09:23→20:04)
[2018-09-09] MEDS: ENOXAPARIN 40 MG/0.4 ML SQ SCH (09:23)
[2018-09-09] MEDS: FUROSEMIDE 20 MG TABLET PO SCH ×2 (09:23→16:53)
[2018-09-09] MEDS: FENOFIBRATE 48 MG TAB PO SCH (09:24)
[2018-09-09] MEDS: GUAIFENESIN 600 MG SA TAB PO SCH ×2 (09:24→20:04)
[2018-09-09] MEDS: THEOPHYLLINE SR 100 MG TAB PO SCH (09:24)
--- NOTE | 2018-09-09 09:24 | P.PN ---
Subjective Date of Service: 09/09/18 Primary Care Provider: Pulmonary-Dr. Jessica Chief Complaint: Pneumonia and COPD Subjective: Other (Patient doing well. Slow improvement noted.) Physical Examination - Vital Signs Temperature: 97.8 F Blood Pressure: 117/76 Pulse: 101 Respirations: 20 Pulse Ox (%): 90 - Physical Exam General: Alert, In no apparent distress, Oriented x3, Cooperative HEENT: Atraumatic Neck: Supple Respiratory: Crackles/rales (To the right side with improvement), Expiratory wheezes Cardiovascular: Normal pulses, Regular rate/rhythm Gastrointestinal: Normal bowel sounds, Soft and benign, Non-distended, No tenderness, No masses, No rebound, No guarding Musculoskeletal: No erythema, No tenderness, No warmth Integumentary: No tenderness/swelling, No erythema, No warmth, No cyanosis Neurological: Normal speech, Normal strength at 5/5 x4 extr, Normal tone, Normal affect - Studies Medications List Reviewed: Yes Assessment & Plan Discharge Plan: Other (longterm facility) Plan to discharge in: 24 Hours Physician Review Additional Text: Impression: Acute on chronic respiratory failure with hypercapnia secondary to COPD exacerbation and right lower lobe pneumonia Severe Pulmonary Hypertension Hyperlipidemia Hypomagnesia CAD GERD Plan: Acute on chronic respiratory failure with hypercapnia, hypoxia secondary to COPD exacerbation and right lower lobe pneumonia: Patient continues to slowly improved. Will continue to wean off oxygen. Antibiotics adjusted by pulmonology. Now on Augmentin and doxycycline. Will have physical therapy assess and slowly exercise. dining services manager working to send patient to skilled facility. This will likely occur tomorrow. Maintain sats above 90%. Will check to see if the patient will require noninvasive ventilator. Will discuss further with pulmonology. Pulmonary Hypertension: Labetalol discontinued due to low blood pressure. Will provide hydralazine as needed. No need for blood pressure medication at this time. ECHO shows severe pulmonary HTN. Patient currently on Lasix. Will continue to monitor and adjust. Hyperlipidemia: Continue with medication and adjust appropriately. Hypomagnesia: Continue with replacement therapy. Will continue monitor. CAD: Continue with Plavix. Patient on DVT prophylaxis. GERD: Will provide Protonix. Time Spent Managing Pts Care (In Minutes): 55
[2018-09-09] MEDS: ATORVASTATIN 10 MG TAB PO SCH (20:04)
[2018-09-09] MEDS: ACETAMINOPHEN 500 MG TAB PO PRN (22:31)
[2018-09-10] MEDS: PANTOPRAZOLE 40MG TABLET PO SCH (05:55)
[2018-09-10 06:33] LABS: Absolute Lymphocytes (CBC) 2.6 K/uL (0.7-4.9); Absolute Monocytes 1.1 K/uL (0.1-1.3); Absolute Neutrophil 12.8 K/uL (1.8-8.0); Basophils % 0.1 % (0-1.3); Eosinophils % 0.2 % (0-4.4); Lymphocytes % 15.6 % (15.3-44.8); MPV 7.7 fL (7.6-11.3); Monocytes % 6.8 % (3.3-12.3); RBC Red Blood Cell Count 4.69 M/uL (4.33-5.43)
[2018-09-10 06:36] LABS: BUN Blood Urea Nitrogen 18 mg/dL (7-18); Bicarbonate 36 mmol/L (21-32); Glucose Level 141 mg/dL (74-106); Potassium 3.8 mmol/L (3.5-5.1); Sodium Level 135 mmol/L (136-145)
[2018-09-10] MEDS: ENOXAPARIN 40 MG/0.4 ML SQ SCH (08:09)
[2018-09-10] MEDS: THEOPHYLLINE SR 100 MG TAB PO SCH (08:10)
[2018-09-10] MEDS: DOXYCYCLINE 100 MG CAP PO SCH ×2 (08:10→21:36)
[2018-09-10] MEDS: FUROSEMIDE 20 MG TABLET PO SCH ×2 (08:11→16:10)
[2018-09-10] MEDS: ASCORBIC ACID 500 MG TABLET PO SCH (08:11)
[2018-09-10] MEDS: CLOPIDOGREL 75 MG TABLET PO SCH (08:12)
[2018-09-10] MEDS: AMOX/K CLAV 500 MG TAB PO SCH ×2 (08:12→21:36)
[2018-09-10] MEDS: VITAMIN D 5,000 UNIT CAP PO SCH (08:12)
[2018-09-10] MEDS: predniSONE 10 MG TAB PO SCH (08:12)
[2018-09-10] MEDS: GUAIFENESIN 600 MG SA TAB PO SCH ×2 (08:12→21:37)
[2018-09-10] MEDS: FENOFIBRATE 48 MG TAB PO SCH (08:17)
--- NOTE | 2018-09-10 08:40 | P.PN ---
Subjective Date of Service: 09/10/18 Primary Care Provider: Pulmonary-Dr. Jessica Chief Complaint: Pneumonia and COPD No changes still has hemoptysis is worse in the supine position feels very weak for he is able to remain off the BiPAP for longer periods did not use it last night denies any chest pain fever or chills Review of Systems General: Weakness Respiratory: Cough, Shortness of Breath Physical Examination - Vital Signs Temperature: 98.5 F Blood Pressure: 114/66 Pulse: 87 Respirations: 19 Pulse Ox (%): 96 - Physical Exam General: Alert, In no apparent distress, Oriented x3 Respiratory: Diminished Cardiovascular: No edema, Regular rate/rhythm - Studies Medications List Reviewed: Yes Assessment & Plan - Problems (Diagnosis) (1) Pneumonia Onset Date: 09/03/18 Current Visit: No Status: Acute Plan: Patient is 77 years of age admitted with pneumonia confirmed by CT scan he has intermittent hemoptysis continue with Augmentin doxycycline reduce prednisone to 10 mg once a day vital signs are stable medications reviewed plan to discharge home follow up in my clinic 2-4 weeks with his no improvement may consider a bronchoscopy he is high risk for any formal treatment given in his lung cancer overall prognosis is very poor due to significant debilitation Qualifiers: Aspiration pneumonia type: unspecified (2) Respiratory failure with hypoxia and hypercapnia Current Visit: Yes Status: Acute Plan: Patient has hypoxic hypercapnic respiratory failure currently on BiPAP titrate sat to 90% monitored in the ICU Physician Review Additional Text: Impression: Acute on chronic respiratory failure with hypercapnia secondary to COPD exacerbation and right lower lobe pneumonia Severe Pulmonary Hypertension Hyperlipidemia Hypomagnesia CAD GERD Plan: Acute on chronic respiratory failure with hypercapnia, hypoxia secondary to COPD exacerbation and right lower lobe pneumonia: Patient continues to slowly improved. Will continue to wean off oxygen. Antibiotics adjusted by pulmonology. Now on Augmentin and doxycycline. Will have physical therapy assess and slowly exercise. nutrition services assistant working to send patient to skilled facility. This will likely occur tomorrow. Maintain sats above 90%. Will check to see if the patient will require noninvasive ventilator. Will discuss further with pulmonology. Pulmonary Hypertension: Labetalol discontinued due to low blood pressure. Will provide hydralazine as needed. No need for blood pressure medication at this time. ECHO shows severe pulmonary HTN. Patient currently on Lasix. Will continue to monitor and adjust. Hyperlipidemia: Continue with medication and adjust appropriately. Hypomagnesia: Continue with replacement therapy. Will continue monitor. CAD: Continue with Plavix. Patient on DVT prophylaxis. GERD: Will provide Protonix.
[2018-09-10] MEDS ORDERED: POTASSIUM 25 MEQ EFFERV TAB PO ONE (09:00)
[2018-09-10] MEDS: ARFORMOTEROL TARTRATE 15 MCG/2 ML VIAL.NEB NEB SCH ×2 (09:30→20:00)
--- NOTE | 2018-09-10 11:22 | P.PN ---
Subjective Date of Service: 09/10/18 Primary Care Provider: Pulmonary-Dr. Jessica Chief Complaint: Pneumonia and COPD Subjective: Other (Patient continues to improve slowly. Patient on nasal cannula this morning.) Physical Examination - Vital Signs Temperature: 98.5 F Blood Pressure: 114/66 Pulse: 87 Respirations: 19 Pulse Ox (%): 96 - Physical Exam General: Alert, In no apparent distress, Oriented x3, Cooperative HEENT: Atraumatic Neck: Supple Respiratory: Expiratory wheezes (Bilateral) Cardiovascular: Normal pulses, Regular rate/rhythm Gastrointestinal: Normal bowel sounds, Soft and benign, Non-distended, No tenderness, No masses, No rebound, No guarding Musculoskeletal: No erythema, No tenderness, No warmth Integumentary: No erythema, No warmth, No cyanosis Neurological: Normal speech, Normal strength at 5/5 x4 extr, Normal tone, Normal affect - Studies Medications List Reviewed: Yes Assessment & Plan Discharge Plan: Other (snf facility) Plan to discharge in: 24 Hours Physician Review Additional Text: Impression: Acute on chronic respiratory failure with hypercapnia secondary to COPD exacerbation and right lower lobe pneumonia Severe Pulmonary Hypertension Hyperlipidemia Hypomagnesia CAD GERD Plan: Acute on chronic respiratory failure with hypercapnia, hypoxia secondary to COPD exacerbation and right lower lobe pneumonia: Patient continues to slowly improved. Will continue to wean off oxygen. Antibiotics adjusted by pulmonology. Now on Augmentin and doxycycline. Patient will continue with antibiotic treatment for 2 weeks. Will have physical therapy continue to assess and slowly exercise. horticultural services supervisor working to send patient to high level skilled facility to continue his care. Pulmonology discuss the possibility of bronchoscopy in the future. Due to his chronic condition this may not be able to be done. Pulmonology to continue to further monitor. Await acceptance to skilled facility. I will decrease prednisone to once daily. I will turn the service over to Dr. Ma tomorrow. I will go over the plan of care with her. Pulmonary Hypertension: Labetalol discontinued due to low blood pressure. Will provide hydralazine as needed. No need for blood pressure medication at this time. ECHO shows severe pulmonary HTN. Patient currently on Lasix. Will continue to monitor and adjust. Hyperlipidemia: Continue with medication and adjust appropriately. Hypomagnesia: Continue with replacement therapy. Will continue monitor. CAD: Continue with Plavix. Patient on DVT prophylaxis. GERD: Will continue to provide Protonix. Time Spent Managing Pts Care (In Minutes): 55
[2018-09-10] MEDS: IPRATROPIUM BROM 0.5MG/2.5ML NEB PRN (20:00)
[2018-09-10] MEDS: ACETAMINOPHEN 500 MG TAB PO PRN (21:36)
[2018-09-10] MEDS: ATORVASTATIN 10 MG TAB PO SCH (21:36)
[2018-09-11] MEDS: PANTOPRAZOLE 40MG TABLET PO SCH (05:55)
[2018-09-11 06:23] LABS: Absolute Monocytes 1.2 K/uL (0.1-1.3); Absolute Neutrophil 11.9 K/uL (1.8-8.0); Basophils % 0.2 % (0-1.3); Eosinophils % 0.7 % (0-4.4); Hematocrit 42.5 % (39.6-49.0); Lymphocytes % 18.2 % (15.3-44.8); MPV 7.3 fL (7.6-11.3); Monocytes % 7.7 % (3.3-12.3); RBC Red Blood Cell Count 4.61 M/uL (4.33-5.43)
[2018-09-11 06:30] LABS: BUN Blood Urea Nitrogen 19 mg/dL (7-18); Bicarbonate 38 mmol/L (21-32); Glucose Level 116 mg/dL (74-106); Potassium 3.9 mmol/L (3.5-5.1); Sodium Level 134 mmol/L (136-145)
[2018-09-11] MEDS ORDERED: POTASSIUM 25 MEQ EFFERV TAB PO ONE (07:00)
[2018-09-11] MEDS: IPRATROPIUM BROM 0.5MG/2.5ML NEB PRN ×2 (07:35→20:11)
[2018-09-11] MEDS: ARFORMOTEROL TARTRATE 15 MCG/2 ML VIAL.NEB NEB SCH ×2 (07:35→20:06)
[2018-09-11] MEDS: VITAMIN D 5,000 UNIT CAP PO SCH (08:43)
[2018-09-11] MEDS: ENOXAPARIN 40 MG/0.4 ML SQ SCH (08:43)
[2018-09-11] MEDS: FENOFIBRATE 48 MG TAB PO SCH (08:44)
[2018-09-11] MEDS: DOXYCYCLINE 100 MG CAP PO SCH ×2 (08:44→20:42)
[2018-09-11] MEDS: GUAIFENESIN 600 MG SA TAB PO SCH ×2 (08:44→20:43)
[2018-09-11] MEDS: AMOX/K CLAV 500 MG TAB PO SCH ×2 (08:44→20:42)
[2018-09-11] MEDS: THEOPHYLLINE SR 100 MG TAB PO SCH (08:44)
[2018-09-11] MEDS: FUROSEMIDE 20 MG TABLET PO SCH ×2 (08:45→16:55)
[2018-09-11] MEDS: CLOPIDOGREL 75 MG TABLET PO SCH (08:45)
[2018-09-11] MEDS: predniSONE 10 MG TAB PO SCH (08:45)
[2018-09-11] MEDS ORDERED: BENZONATATE 100 MG CAP PO PRN (09:06)
--- NOTE | 2018-09-11 13:02 | RAD REPORT ---
EXAM DESCRIPTION: RAD - Chest Pa And Lat (2 Views) - 09/11/2018 12:53 pm CLINICAL HISTORY: Pneumonia, shortness of breath COMPARISON: Portable chest September 09, portable chest September 08, CT chest September 07 TECHNIQUE: PA and lateral views of the chest were obtained. FINDINGS: The lungs are fibrotic as a baseline. Patient has flattened diaphragm and increased retros ternal space. Left lung field fibrotic pattern has not changed. No new or progressive left lung field finding. No f ailure or volume overload findings present. Heart size and vasculature within normal limits. Pneumonia changes seen in the lateral inferior aspect of the right upper lobe along the minor fissure have improved since September 09. No progressive right upper lobe finding. Moderate area of pneumonia in the posterior inferior right lower lobe is still present. This has not improved and may be slight ly worse in the lateral aspect of the right lung base. Small right pleural effusion is present. No pneumothorax is present. IMPRESSION: Right upper lobe pneumonia changes have improved since September 09. Right lung base pneumonia changes show no improvement and may be fractionally worse. Small right pleu ral effusion is present.
--- NOTE | 2018-09-11 17:47 | P.PN ---
Subjective Date of Service: 09/11/18 Primary Care Provider: Pulmonary-Dr. Jessica Chief Complaint: Pneumonia and COPD Patient seen and examined at bedside with RN. Chart reviewed. Case discussed with pulmonology. Doing well overall. No complaints to offer at this time Review of Systems 10-point ROS is otherwise unremarkable Physical Examination - Vital Signs Temperature: 98.6 F Blood Pressure: 104/65 Pulse: 103 Respirations: 28 Pulse Ox (%): 92 - Physical Exam General: Alert, Mild distress HEENT: Atraumatic, PERRLA, EOMI Neck: Supple, JVD not distended Respiratory: Normal air movement, Expiratory wheezes, Inspiratory wheezes, Rhonchi/gurgles Cardiovascular: Regular rate/rhythm, Normal S1 S2 Gastrointestinal: Normal bowel sounds, No tenderness Musculoskeletal: No tenderness Integumentary: No rashes Neurological: Normal speech, Normal tone, Normal affect Lymphatics: No axilla or inguinal lymphadenopathy - Studies Medications List Reviewed: Yes Assessment And Plan - Current Problems (Diagnosis) (1) Respiratory failure Onset Date: 09/03/18 Current Visit: No Status: Acute Plan: Acute respiratory failure most likely secondary to hypercapnia secondary to COPD exacerbation -currently weaned to a nasal cannula -patient does have home oxygenation -duonebs, steroids, BiPAP p.r.n. at this time for COPD -monitor closely Qualifiers: Chronicity: acute on chronic Respiratory failure complication: hypoxia and hypercapnia Qualified Code(s): J96.21 - Acute and chronic respiratory failure with hypoxia; J96.22 - Acute and chronic respiratory failure with hypercapnia (2) Right lower lobe pneumonia Onset Date: 09/03/18 Current Visit: Yes Status: Acute Plan: Right lower pneumonia on chest x-ray -currently on Augmentin and doxycycline -culture negative at this time Qualifiers: Pneumonia type: due to unspecified organism Qualified Code(s): J18.1 - Lobar pneumonia, unspecified organism (3) Acute exacerbation of chronic obstructive pulmonary disease (COPD) Onset Date: 09/03/18 Current Visit: No Status: Acute Plan: Acute on chronic COPD exacerbation most likely secondary to pneumonia. Also complaining of hemoptysis today -duo nebs, steroids, BiPAP p.r.n. at this time -pulmonology consulted. Recommendation appreciated at this time -hemoptysis most likely associated with coughing -started on Tessalon Perles at this time. -Patient may need bronchoscopy in future. Pulmonology follow patient outpatient (4) Pulmonary hypertension Current Visit: Yes Status: Chronic (5) CAD (coronary artery disease) Current Visit: Yes Status: Chronic Qualifiers: Coronary Disease-Associated Artery/Lesion type: [place] artery [place] vs. transplanted heart: [place] heart Associated angina: without angina Qualified Code(s): I25.10 - Atherosclerotic heart disease of [place] coronary artery without angina pectoris (6) GERD (gastroesophageal reflux disease) Current Visit: Yes Status: Chronic Qualifiers: Esophagitis presence: without esophagitis Qualified Code(s): K21.9 - Gastro -esophageal reflux disease without esophagitis - Plan Patient is currently pending placement to a snf facility. Case management has been consulted for discharge planning. Will follow up with further recommendations at this time. Patient is currently working with physical therapy here in the hospital. Discharge Plan: Other Plan to discharge in: Greater than 2 days - Code Status/Comfort Care Code Status Assessed: Yes
[2018-09-11] MEDS: ATORVASTATIN 10 MG TAB PO SCH (20:42)
[2018-09-11] MEDS: ACETAMINOPHEN 500 MG TAB PO PRN (21:29)
[2018-09-12 04:36] LABS: BUN Blood Urea Nitrogen 19 mg/dL (7-18); Bicarbonate 36 mmol/L (21-32); Glucose Level 118 mg/dL (74-106); Potassium 3.7 mmol/L (3.5-5.1); Sodium Level 134 mmol/L (136-145)
[2018-09-12] MEDS: PANTOPRAZOLE 40MG TABLET PO SCH (05:48)
[2018-09-12] MEDS ORDERED: POTASSIUM CL SA 10 MEQ TAB PO ONE (06:00)
--- NOTE | 2018-09-12 07:59 | P.PN ---
Subjective Date of Service: 09/12/18 Primary Care Provider: Pulmonary-Dr. Jessica Chief Complaint: Pneumonia and COPD Patient is still complaining of feeling weak although is hemoptysis is declined he is short of breath on minimal exertion no significant change Review of Systems General: Weakness Respiratory: Shortness of Breath Physical Examination - Vital Signs Temperature: 98 F Blood Pressure: 102/59 Pulse: 97 Respirations: 19 Pulse Ox (%): 90 - Physical Exam General: Alert, Mild distress Respiratory: Diminished Cardiovascular: No edema, Normal S1 S2 - Studies Medications List Reviewed: Yes Assessment & Plan - Problems (Diagnosis) (1) Pneumonia Onset Date: 09/03/18 Current Visit: No Status: Acute Plan: Patient is 77 years of age admitted with pneumonia he seems to be clinically improving as far as pneumonia is consent hemoptysis is declined still very short of breath and weak he has a low-dose prednisone of increases theophylline 200 mg twice a day continue with bronchodilator therapy he will need a longterm facility patient lives with his brother at home vital signs are stable white count is declining overall prognosis is very poor Qualifiers: Aspiration pneumonia type: unspecified (2) Respiratory failure with hypoxia and hypercapnia Current Visit: Yes Status: Acute Plan: Patient has hypoxic hypercapnic respiratory failure currently on BiPAP titrate sat to 90% monitored in the ICU Physician Review Additional Text: Impression: Acute on chronic respiratory failure with hypercapnia secondary to COPD exacerbation and right lower lobe pneumonia Severe Pulmonary Hypertension Hyperlipidemia Hypomagnesia CAD GERD Plan: Acute on chronic respiratory failure with hypercapnia, hypoxia secondary to COPD exacerbation and right lower lobe pneumonia: Patient continues to slowly improved. Will continue to wean off oxygen. Antibiotics adjusted by pulmonology. Now on Augmentin and doxycycline. Patient will continue with antibiotic treatment for 2 weeks. Will have physical therapy continue to assess and slowly exercise. industrial services worker working to send patient to high level skilled facility to continue his care. Pulmonology discuss the possibility of bronchoscopy in the future. Due to his chronic condition this may not be able to be done. Pulmonology to continue to further monitor. Await acceptance to skilled facility. I will decrease prednisone to once daily. I will turn the service over to Dr. Ma tomorrow. I will go over the plan of care with her. Pulmonary Hypertension: Labetalol discontinued due to low blood pressure. Will provide hydralazine as needed. No need for blood pressure medication at this time. ECHO shows severe pulmonary HTN. Patient currently on Lasix. Will continue to monitor and adjust. Hyperlipidemia: Continue with medication and adjust appropriately. Hypomagnesia: Continue with replacement therapy. Will continue monitor. CAD: Continue with Plavix. Patient on DVT prophylaxis. GERD: Will continue to provide Protonix.
[2018-09-12] MEDS: IPRATROPIUM BROM 0.5MG/2.5ML NEB PRN ×3 (08:57→19:45)
[2018-09-12] MEDS: ARFORMOTEROL TARTRATE 15 MCG/2 ML VIAL.NEB NEB SCH ×2 (08:57→19:45)
[2018-09-12] MEDS: FUROSEMIDE 20 MG TABLET PO SCH ×2 (08:59→17:00)
[2018-09-12] MEDS: GUAIFENESIN 600 MG SA TAB PO SCH ×2 (08:59→21:08)
[2018-09-12] MEDS: ENOXAPARIN 40 MG/0.4 ML SQ SCH (08:59)
[2018-09-12] MEDS: VITAMIN D 5,000 UNIT CAP PO SCH (08:59)
[2018-09-12] MEDS: DOXYCYCLINE 100 MG CAP PO SCH ×2 (08:59→21:08)
[2018-09-12] MEDS: predniSONE 10 MG TAB PO SCH (09:00)
[2018-09-12] MEDS: CLOPIDOGREL 75 MG TABLET PO SCH (09:00)
[2018-09-12] MEDS: FENOFIBRATE 48 MG TAB PO SCH (09:02)
[2018-09-12] MEDS: THEOPHYLLINE SR 100 MG TAB PO SCH ×2 (09:02→21:08)
[2018-09-12] MEDS: AMOX/K CLAV 500 MG TAB PO SCH ×2 (09:03→21:08)
[2018-09-12 11:13] LABS: Arterial Blood Carboxyhemoglob 1.7 % (0-1.5); Blood Gas Oxyhemoglobin 85.8 % (94-97); Blood O2 Saturation 87.7 % (92-98.5)
--- NOTE | 2018-09-12 11:32 | RAD REPORT ---
EXAM DESCRIPTION: RAD - Chest Single View - 09/12/2018 11:22 am CLINICAL HISTORY: sob Chest pain. COMPARISON: Chest Pa And Lat (2 Views) dated 09/11/2018; Chest Single View dated 09/09/2018; Chest S can View dated 09/08/2018; Chest Single View dated 09/07/2018 FINDINGS: Portable technique limits examination quality. Emphysematous changes are present with ill-defined opacity noted in the right upper lobe laterally in the right lung base, mildly worse compared to the prior study. The left lung is emphysematous but cl ear. The heart is normal in size. No displaced fractures. IMPRESSION: Mild progression in right-sided pneumonia since comparative study.
--- NOTE | 2018-09-12 12:26 | P.PN ---
Subjective Date of Service: 09/12/18 Primary Care Provider: Pulmonary-Dr. Jessica Chief Complaint: Pneumonia and COPD Patient seen and examined at bedside with RN. Chart reviewed. Case discussed with pulmonology. Doing well overall. No complaints to offer at this time. Awaiting SNF placement. Review of Systems 10-point ROS is otherwise unremarkable Physical Examination - Vital Signs Temperature: 98.4 F Blood Pressure: 102/59 Pulse: 97 Respirations: 18 Pulse Ox (%): 90 - Physical Exam General: Alert, Mild distress HEENT: Atraumatic, PERRLA, EOMI Neck: Supple, JVD not distended Respiratory: Clear to auscultation bilaterally, Normal air movement Cardiovascular: Regular rate/rhythm, Normal S1 S2 Gastrointestinal: Normal bowel sounds, No tenderness Musculoskeletal: No tenderness Integumentary: No rashes Neurological: Normal speech, Normal tone, Normal affect Lymphatics: No axilla or inguinal lymphadenopathy - Studies Medications List Reviewed: Yes Assessment And Plan - Current Problems (Diagnosis) (1) Respiratory failure Onset Date: 09/03/18 Current Visit: No Status: Acute Plan: Acute respiratory failure -ABG with Hypoxic Respiratory Failure most likely 2.2 to Pulmonary HTN -currently weaned to a nasal cannula and BIPAP PRN. -patient does have home oxygenation -duonebs, steroids, theophylline at this time for COPD -monitor closely Qualifiers: Chronicity: acute on chronic Respiratory failure complication: hypoxia and hypercapnia Qualified Code(s): J96.21 - Acute and chronic respiratory failure with hypoxia; J96.22 - Acute and chronic respiratory failure with hypercapnia (2) Right lower lobe pneumonia Onset Date: 09/03/18 Current Visit: Yes Status: Acute Plan: Right lower pneumonia on chest x-ray -currently on Augmentin and doxycycline -culture negative thus far Qualifiers: Pneumonia type: due to unspecified organism Qualified Code(s): J18.1 - Lobar pneumonia, unspecified organism (3) Acute exacerbation of chronic obstructive pulmonary disease (COPD) Onset Date: 09/03/18 Current Visit: No Status: Acute Plan: Acute on chronic COPD exacerbation most likely secondary to pneumonia. Also complaining of hemoptysis today -duo nebs, steroids, BiPAP p.r.n. at this time -pulmonology consulted. Recommendation appreciated at this time -hemoptysis most likely associated with coughing and pulmonary HTN. Will monitor -started on Tessalon Perles at this time. -Patient may need bronchoscopy in future. Pulmonology follow patient outpatient (4) Pulmonary hypertension Current Visit: Yes Status: Chronic Plan: See # 1 (5) CAD (coronary artery disease) Current Visit: Yes Status: Chronic Qualifiers: Coronary Disease-Associated Artery/Lesion type: [place] artery [place] vs. transplanted heart: [place] heart Associated angina: without angina Qualified Code(s): I25.10 - Atherosclerotic heart disease of [place] coronary artery without angina pectoris (6) GERD (gastroesophageal reflux disease) Current Visit: Yes Status: Chronic Qualifiers: Esophagitis presence: without esophagitis Qualified Code(s): K21.9 - Gastro -esophageal reflux disease without esophagitis - Plan Patient is currently pending placement to a residential facility. Case management has been consulted for discharge planning. Will follow up with further recommendations at this time. Patient is currently working with physical therapy here in the hospital. Discharge Plan: Home Plan to discharge in: 48 Hours - Code Status/Comfort Care Code Status Assessed: Yes Critical Care: No
[2018-09-12] MEDS: ALBUTEROL 2.5 MG/3 ML NEB SOL NEB PRN (14:25)
[2018-09-12] MEDS: ATORVASTATIN 10 MG TAB PO SCH (21:08)
[2018-09-13] MEDS: IPRATROPIUM BROM 0.5MG/2.5ML NEB PRN ×2 (02:40→08:25)
[2018-09-13 04:28] LABS: BUN Blood Urea Nitrogen 14 mg/dL (7-18); Bicarbonate 34 mmol/L (21-32); Glucose Level 113 mg/dL (74-106); Magnesium 1.7 mg/dL (1.8-2.4); Potassium 3.8 mmol/L (3.5-5.1); Sodium Level 130 mmol/L (136-145)
[2018-09-13 07:03] LABS: Absolute Lymphocytes (CBC) 2.8 K/uL (0.7-4.9); Absolute Monocytes 1.6 K/uL (0.1-1.3); Absolute Neutrophil 13.6 K/uL (1.8-8.0); Basophils % 0.3 % (0-1.3); Eosinophils % 0.6 % (0-4.4); Hematocrit 41.1 % (39.6-49.0); Lymphocytes % 15.5 % (15.3-44.8); MPV 7.4 fL (7.6-11.3); Monocytes % 8.6 % (3.3-12.3); RBC Red Blood Cell Count 4.51 M/uL (4.33-5.43)
[2018-09-13 07:09] LABS: Protime INR 1.13
[2018-09-13 07:20] LABS: ALT/SGPT 31 U/L (12-78); AST/SGOT 14 U/L (15-37); Albumin 2.3 g/dL (3.4-5.0); Alkaline Phosphatase 29 U/L (45-117); BUN Blood Urea Nitrogen 14 mg/dL (7-18); Bicarbonate 37 mmol/L (21-32); Bilirubin Total 0.7 mg/dL (0.2-1.0); Glucose Level 109 mg/dL (74-106); Phosphorus 2.4 mg/dL (2.5-4.9); Potassium 3.9 mmol/L (3.5-5.1); Protein, Total 5.2 g/dL (6.4-8.2); Sodium Level 132 mmol/L (136-145)
[2018-09-13] MEDS: PANTOPRAZOLE 40MG TABLET PO SCH (07:20)
--- NOTE | 2018-09-13 08:02 | P.PN ---
Subjective Date of Service: 09/13/18 Primary Care Provider: Pulmonary-Dr. Jessica Chief Complaint: Pneumonia and COPD No significant change patient is still feeling very weak as intermittent hemoptysis some right-sided chest discomfort been no progression on his recent chest x-ray Review of Systems General: Weakness Respiratory: Cough, Shortness of Breath, Hemoptysis Physical Examination - Vital Signs Temperature: 98.8 F Blood Pressure: 102/62 Pulse: 87 Respirations: 21 Pulse Ox (%): 91 - Physical Exam General: Alert, Oriented x3 Respiratory: Clear to auscultation bilaterally, Diminished Cardiovascular: No edema, Regular rate/rhythm Gastrointestinal: Normal bowel sounds, Soft and benign - Studies Medications List Reviewed: Yes Assessment & Plan - Problems (Diagnosis) (1) Pneumonia Onset Date: 09/03/18 Current Visit: No Status: Acute Plan: Patient admitted with hemoptysis he does have a pneumonia on the right side all cultures are negative has intermittent hemoptysis white count is still mildly elevated cultures are all negative will plan to proceed with bronchoscopy tomorrow I have discussed with the patient risk include bleeding infection lung collapse he is high risk due to hypoxemia in the only able to perform a limited procedure Qualifiers: Aspiration pneumonia type: unspecified (2) Respiratory failure with hypoxia and hypercapnia Current Visit: Yes Status: Acute Plan: Patient has hypoxic hypercapnic respiratory failure currently on BiPAP titrate sat to 90% monitored in the ICU Physician Review Additional Text: Impression: Acute on chronic respiratory failure with hypercapnia secondary to COPD exacerbation and right lower lobe pneumonia Severe Pulmonary Hypertension Hyperlipidemia Hypomagnesia CAD GERD Plan: Acute on chronic respiratory failure with hypercapnia, hypoxia secondary to COPD exacerbation and right lower lobe pneumonia: Patient continues to slowly improved. Will continue to wean off oxygen. Antibiotics adjusted by pulmonology. Now on Augmentin and doxycycline. Patient will continue with antibiotic treatment for 2 weeks. Will have physical therapy continue to assess and slowly exercise. [employer] representative working to send patient to high level skilled facility to continue his care. Pulmonology discuss the possibility of bronchoscopy in the future. Due to his chronic condition this may not be able to be done. Pulmonology to continue to further monitor. Await acceptance to skilled facility. I will decrease prednisone to once daily. I will turn the service over to Dr. Ma tomorrow. I will go over the plan of care with her. Pulmonary Hypertension: Labetalol discontinued due to low blood pressure. Will provide hydralazine as needed. No need for blood pressure medication at this time. ECHO shows severe pulmonary HTN. Patient currently on Lasix. Will continue to monitor and adjust. Hyperlipidemia: Continue with medication and adjust appropriately. Hypomagnesia: Continue with replacement therapy. Will continue monitor. CAD: Continue with Plavix. Patient on DVT prophylaxis. GERD: Will continue to provide Protonix.
--- NOTE | 2018-09-13 08:18 | RAD REPORT ---
EXAM DESCRIPTION: RAD - Chest Single View - 09/13/2018 7:51 am CLINICAL HISTORY: hemoptysis Chest pain. COMPARISON: Chest Single View dated 09/12/2018; Chest Pa And Lat (2 Views) dated 09/11/2018; Chest S can View dated 09/09/2018; Chest Single View dated 09/08/2018 FINDINGS: Portable technique limits examination quality. Airspace opacity in the right lung base as well as the right upper lobe laterally appears mildly wors ened since the comparative study. The left lung is emphysematous. The heart is normal in size. No dis placed fractures. IMPRESSION: Mild worsening in right-sided pneumonia.
[2018-09-13] MEDS: ALBUTEROL 2.5 MG/3 ML NEB SOL NEB PRN (08:25)
[2018-09-13] MEDS: ARFORMOTEROL TARTRATE 15 MCG/2 ML VIAL.NEB NEB SCH ×2 (08:25→20:00)
[2018-09-13] MEDS ORDERED: Meropenem 1000 MG/VIAL IV SCH (09:00)
[2018-09-13] MEDS: DOXYCYCLINE 100 MG CAP PO SCH ×2 (09:51→21:15)
[2018-09-13] MEDS: VITAMIN D 5,000 UNIT CAP PO SCH (09:52)
[2018-09-13] MEDS: FUROSEMIDE 20 MG TABLET PO SCH ×2 (09:52→16:19)
[2018-09-13] MEDS: predniSONE 10 MG TAB PO SCH (09:53)
[2018-09-13] MEDS: GUAIFENESIN 600 MG SA TAB PO SCH ×2 (09:53→21:15)
[2018-09-13] MEDS: CLOPIDOGREL 75 MG TABLET PO SCH (09:53)
[2018-09-13] MEDS: FENOFIBRATE 48 MG TAB PO SCH (09:53)
[2018-09-13] MEDS: ENOXAPARIN 40 MG/0.4 ML SQ SCH (09:54)
[2018-09-13] MEDS: THEOPHYLLINE SR 100 MG TAB PO SCH ×2 (09:54→21:15)
[2018-09-13] MEDS: Meropenem 1,000 MG in NA CHLORIDE 0.9% 100 ML IV SCH ×2 (09:55→16:18)
[2018-09-13] MEDS ORDERED: FLUCONAZOLE 100 MG TAB PO SCH (13:38)
--- NOTE | 2018-09-13 15:18 | P.PN ---
Subjective Date of Service: 09/13/18 Primary Care Provider: Pulmonary-Dr. Jessica Chief Complaint: Pneumonia and COPD Patient seen and examined at bedside with RN. Chart reviewed. Case discussed with pulmonology. Still complaining of having shortness of breath and inability to walk due to shortness of breath. Saturations dipping down to 70% without oxygen. The patient with BiPAP p.r.n.. This morning states that he is tired of not being able to breathe. Review of Systems 10-point ROS is otherwise unremarkable Physical Examination - Vital Signs Temperature: 98.6 F Blood Pressure: 105/55 Pulse: 97 Respirations: 18 Pulse Ox (%): 94 - Physical Exam General: Alert, Moderate distress HEENT: Atraumatic, PERRLA, Other ([place] with White scaly dots on the posterior side. ), EOMI Neck: Supple, JVD not distended Respiratory: Normal air movement, Crackles/rales, Rhonchi/gurgles Cardiovascular: Regular rate/rhythm, Normal S1 S2 Gastrointestinal: Normal bowel sounds, No tenderness Musculoskeletal: No tenderness Integumentary: No rashes Neurological: Normal speech, Normal tone, Normal affect Lymphatics: No axilla or inguinal lymphadenopathy - Studies Medications List Reviewed: Yes Assessment And Plan - Current Problems (Diagnosis) (1) Respiratory failure Onset Date: 09/03/18 Current Visit: No Status: Acute Plan: Acute respiratory failure with limited Resolutions -ABG with Hypoxic Respiratory Failure most likely 2.2 to Pulmonary HTN vs PNA -currently weaned to a nasal cannula and BIPAP PRN. -patient does have home oxygenation -duonebs, steroids, theophylline -Pt is scheduled for Bronchoscopy tammie AM Qualifiers: Chronicity: acute on chronic Respiratory failure complication: hypoxia and hypercapnia Qualified Code(s): J96.21 - Acute and chronic respiratory failure with hypoxia; J96.22 - Acute and chronic respiratory failure with hypercapnia (2) Right lower lobe pneumonia Onset Date: 09/03/18 Current Visit: Yes Status: Acute Plan: Right lower pneumonia on chest x-ray and Hemopytosis now -Switched to Doxycycline and IV meropenum -culture negative thus far -Scheduled Bronchoscopy tammie AM with Pulmonology Qualifiers: Pneumonia type: due to unspecified organism Qualified Code(s): J18.1 - Lobar pneumonia, unspecified organism (3) Acute exacerbation of chronic obstructive pulmonary disease (COPD) Onset Date: 09/03/18 Current Visit: No Status: Acute Plan: Acute on chronic COPD exacerbation most likely secondary to pneumonia. -duo nebs, steroids, BiPAP p.r.n. at this time -pulmonology consulted. Recommendation appreciated at this time (4) Pulmonary hypertension Current Visit: Yes Status: Chronic Plan: See # 1 (5) CAD (coronary artery disease) Current Visit: Yes Status: Chronic Qualifiers: Coronary Disease-Associated Artery/Lesion type: [place] artery [place] vs. transplanted heart: [place] heart Associated angina: without angina Qualified Code(s): I25.10 - Atherosclerotic heart disease of [place] coronary artery without angina pectoris (6) GERD (gastroesophageal reflux disease) Current Visit: Yes Status: Chronic Qualifiers: Esophagitis presence: without esophagitis Qualified Code(s): K21.9 - Gastro -esophageal reflux disease without esophagitis - Plan The patient is currently pending clinical improvement. The scheduled for bronchoscopy tomorrow morning. Will follow up with him postprocedure. Physician Review Additional Text: Impression: Acute on chronic respiratory failure with hypercapnia secondary to COPD exacerbation and right lower lobe pneumonia Severe Pulmonary Hypertension Hyperlipidemia Hypomagnesia CAD GERD Plan: Acute on chronic respiratory failure with hypercapnia, hypoxia secondary to COPD exacerbation and right lower lobe pneumonia: Patient continues to slowly improved. Will continue to wean off oxygen. Antibiotics adjusted by pulmonology. Now on Augmentin and doxycycline. Patient will continue with antibiotic treatment for 2 weeks. Will have physical therapy continue to assess and slowly exercise. rehab services aide working to send patient to high level skilled facility to continue his care. Pulmonology discuss the possibility of bronchoscopy in the future. Due to his chronic condition this may not be able to be done. Pulmonology to continue to further monitor. Await acceptance to skilled facility. I will decrease prednisone to once daily. I will turn the service over to Dr. Ma tomorrow. I will go over the plan of care with her. Pulmonary Hypertension: Labetalol discontinued due to low blood pressure. Will provide hydralazine as needed. No need for blood pressure medication at this time. ECHO shows severe pulmonary HTN. Patient currently on Lasix. Will continue to monitor and adjust. Hyperlipidemia: Continue with medication and adjust appropriately. Hypomagnesia: Continue with replacement therapy. Will continue monitor. CAD: Continue with Plavix. Patient on DVT prophylaxis. GERD: Will continue to provide Protonix.
[2018-09-13] MEDS ORDERED: POTASSIUM CL SA 10 MEQ TAB PO ONE (15:40)
[2018-09-13] MEDS: NYSTATIN 500,000 UNIT/5 ML UDC PO SCH ×2 (16:18→21:15)
[2018-09-13] MEDS: ATORVASTATIN 10 MG TAB PO SCH (21:15)
[2018-09-14] MEDS: Meropenem 1,000 MG in NA CHLORIDE 0.9% 100 ML IV SCH ×3 (01:19→16:44)
[2018-09-14] MEDS: PANTOPRAZOLE 40MG TABLET PO SCH (05:55)
[2018-09-14] MEDS ORDERED: LIDOCAINE 1% MPF 30 ML VIAL ONE (06:12)
[2018-09-14] MEDS ORDERED: LIDOCAINE 4% TOP SOLUTION ONE (06:12)
[2018-09-14] MEDS ORDERED: Phenylephrine HCl 10 MG/ML 1 ML VIAL ONE (06:12)
[2018-09-14] MEDS ORDERED: GLYCOPYRROLATE 0.2 MG/ML SYR ONE (06:12)
[2018-09-14] MEDS ORDERED: LIDOCAINE VISCOUS 2% SOLN 15 ML UDC ONE (06:13)
[2018-09-14] MEDS ORDERED: Ringers Lactate 1,000 ML IV ONE (06:46)
[2018-09-14] MEDS ORDERED: PROPOFOL 200 MG/20 ML VIAL IV ONE (07:44)
[2018-09-14] MEDS ORDERED: LIDOCAINE 1% MPF 2 ML AMPULE ONE (07:44)
--- NOTE | 2018-09-14 07:51 | P.OP ---
Date of Service: 09/14/18 (Bronchoscopy with right upper lobe biopsies NM BAL) Findings and Operative Technique Patient is 77 years of age evaluated by me for hemoptysis and pneumonia of the right lung endoscopy was poor perform due to persistent hemoptysis Narrative report after obtaining informed consent from the patient he was premedicated by anesthesia Findings normal vocal cords normal trachea normal right and left-sided bronchial anatomy no endobronchial lesions visible no bleeding or pus visible throughout the respiratory tract Multiple biopsies were performed from the right upper lobe anterior segment BAL from the right upper lobe in the right lower lobe. Patient tolerated the procedure very well did not experience any hypertension arrhythmias In addition to cytology specimens were also sent for culture
[2018-09-14] MEDS: ARFORMOTEROL TARTRATE 15 MCG/2 ML VIAL.NEB NEB SCH ×2 (08:00→08:42)
[2018-09-14] MEDS: IPRATROPIUM BROM 0.5MG/2.5ML NEB PRN (08:42)
[2018-09-14] MEDS: ALBUTEROL 2.5 MG/3 ML NEB SOL NEB PRN (08:42)
--- NOTE | 2018-09-14 09:50 | RAD REPORT ---
EXAM DESCRIPTION: [place] Single View09/14/2018 8:43 am CLINICAL HISTORY: Chest pain COMPARISON: September 13 FINDINGS: Extensive right lung opacities again demonstrated. A pneumothorax is not seen status post bronchoscopy The heart is normal size
[2018-09-14] MEDS: FENOFIBRATE 48 MG TAB PO SCH (10:09)
[2018-09-14] MEDS: THEOPHYLLINE SR 100 MG TAB PO SCH ×2 (10:09→21:32)
[2018-09-14] MEDS: FUROSEMIDE 20 MG TABLET PO SCH ×2 (10:10→16:43)
[2018-09-14] MEDS: predniSONE 10 MG TAB PO SCH (10:10)
[2018-09-14] MEDS: VITAMIN D 5,000 UNIT CAP PO SCH (10:10)
--- NOTE | 2018-09-14 10:26 | RAD REPORT ---
EXAM DESCRIPTION: RAD - FLUORO-GUIDE FOR BRONCH UPT1HR - 09/14/2018 8:19 am CLINICAL HISTORY: Right lung mass. FINDINGS: Four fluoroscopic spot images are submitted. Bronchoscopy performed. Fluoroscopy time 2 mi nutes 7 seconds. The exam was performed by Dr. Jessica.
[2018-09-14 10:40] LABS: Hematocrit 41.7 % (39.6-49.0); MPV 7.5 fL (7.6-11.3); RBC Red Blood Cell Count 4.54 M/uL (4.33-5.43)
[2018-09-14] MEDS: NYSTATIN 500,000 UNIT/5 ML UDC PO SCH ×4 (10:47→21:32)
[2018-09-14] MEDS: DOXYCYCLINE 100 MG CAP PO SCH ×2 (10:48→21:31)
[2018-09-14] MEDS: GUAIFENESIN 600 MG SA TAB PO SCH ×2 (10:54→21:31)
[2018-09-14] MEDS ORDERED: NYSTATIN 500,000 UNIT/5 ML UDC PO SCH (13:00)
--- NOTE | 2018-09-14 16:05 | P.PN ---
Subjective Date of Service: 09/14/18 Primary Care Provider: Pulmonary-Dr. Jessica Chief Complaint: Pneumonia and COPD Patient seen and examined at bedside with RN. Chart reviewed. Case discussed with pulmonology. Still complaining of having shortness of breath and inability to walk due to shortness of breath. Saturations dipping down to 70% without oxygen. The patient with BiPAP p.r.n.. This morning states that he is tired of not being able to breathe and thinks his time is near. Review of Systems 10-point ROS is otherwise unremarkable Physical Examination - Vital Signs Temperature: 98.4 F Blood Pressure: 100/64 Pulse: 102 Respirations: 20 Pulse Ox (%): 89 - Physical Exam General: Alert, Moderate distress HEENT: Atraumatic, PERRLA, EOMI Neck: Supple, JVD not distended Respiratory: Normal air movement, Expiratory wheezes, Inspiratory wheezes, Rhonchi/gurgles Cardiovascular: Regular rate/rhythm, Normal S1 S2 Gastrointestinal: Normal bowel sounds, No tenderness Musculoskeletal: No tenderness Integumentary: No rashes Neurological: Normal speech, Normal tone, Normal affect Lymphatics: No axilla or inguinal lymphadenopathy - Studies Medications List Reviewed: Yes Assessment And Plan - Current Problems (Diagnosis) (1) Respiratory failure Onset Date: 09/03/18 Current Visit: No Status: Acute Plan: Acute respiratory failure with limited Resolutions -S/P Bronchoscopes at this time. BAL culture send. -ABG with Hypoxic Respiratory Failure most likely 2.2 to Pulmonary HTN vs PNA -currently weaned to a nasal cannula and BIPAP PRN. -patient does have home oxygenation -duonebs, steroids, theophylline Qualifiers: Chronicity: acute on chronic Respiratory failure complication: hypoxia and hypercapnia Qualified Code(s): J96.21 - Acute and chronic respiratory failure with hypoxia; J96.22 - Acute and chronic respiratory failure with hypercapnia (2) Right lower lobe pneumonia Onset Date: 09/03/18 Current Visit: Yes Status: Acute Plan: Right lower pneumonia on chest x-ray and Hemopytosis now -S/P bronch. BAL culture collected. Most likely PNA per pulmonology -Switched to Doxycycline and IV meropenum -Will need for total of 2 weeks Qualifiers: Pneumonia type: due to unspecified organism Qualified Code(s): J18.1 - Lobar pneumonia, unspecified organism (3) Acute exacerbation of chronic obstructive pulmonary disease (COPD) Onset Date: 09/03/18 Current Visit: No Status: Acute Plan: Acute on chronic COPD exacerbation most likely secondary to pneumonia. -duo nebs, steroids, BiPAP p.r.n. at this time -pulmonology consulted. Recommendation appreciated at this time (4) Pulmonary hypertension Current Visit: Yes Status: Chronic Plan: See # 1 (5) CAD (coronary artery disease) Current Visit: Yes Status: Chronic Qualifiers: Coronary Disease-Associated Artery/Lesion type: [place] artery [place] vs. transplanted heart: [place] heart Associated angina: without angina Qualified Code(s): I25.10 - Atherosclerotic heart disease of [place] coronary artery without angina pectoris (6) GERD (gastroesophageal reflux disease) Current Visit: Yes Status: Chronic Qualifiers: Esophagitis presence: without esophagitis Qualified Code(s): K21.9 - Gastro -esophageal reflux disease without esophagitis - Plan The patient is currently pending Placement Discharge Plan: Home Plan to discharge in: 48 Hours - Code Status/Comfort Care Code Status Assessed: Yes Critical Care: No
[2018-09-14] MEDS ORDERED: Meropenem 1000 MG/VIAL IV SCH (17:00)
[2018-09-14] MEDS ORDERED: GUAIFENESIN 600 MG SA TAB PO SCH (21:00)
[2018-09-14] MEDS ORDERED: DOXYCYCLINE 100 MG CAP PO SCH (21:00)
[2018-09-14] MEDS: ATORVASTATIN 10 MG TAB PO SCH (21:31)
[2018-09-15] MEDS: Meropenem 1,000 MG in NA CHLORIDE 0.9% 100 ML IV SCH ×3 (01:03→17:07)
[2018-09-15] MEDS: PANTOPRAZOLE 40MG TABLET PO SCH (05:41)
[2018-09-15 07:48] LABS: MPV 7.2 fL (7.6-11.3); RBC Red Blood Cell Count 4.46 M/uL (4.33-5.43)
[2018-09-15 07:59] LABS: Magnesium 1.7 mg/dL (1.8-2.4); Phosphorus 2.5 mg/dL (2.5-4.9); Potassium 3.5 mmol/L (3.5-5.1)
[2018-09-15] MEDS: DOXYCYCLINE 100 MG CAP PO SCH ×2 (08:35→22:57)
[2018-09-15] MEDS: FUROSEMIDE 20 MG TABLET PO SCH ×2 (08:36→17:07)
[2018-09-15] MEDS: predniSONE 10 MG TAB PO SCH (08:36)
[2018-09-15] MEDS: GUAIFENESIN 600 MG SA TAB PO SCH ×2 (08:36→22:58)
[2018-09-15] MEDS: VITAMIN D 5,000 UNIT CAP PO SCH (08:36)
[2018-09-15] MEDS: NYSTATIN 500,000 UNIT/5 ML UDC PO SCH ×4 (08:37→22:59)
[2018-09-15] MEDS: FENOFIBRATE 48 MG TAB PO SCH (08:37)
[2018-09-15] MEDS: THEOPHYLLINE SR 100 MG TAB PO SCH ×2 (08:37→23:04)
--- NOTE | 2018-09-15 10:27 | P.PN ---
Subjective Date of Service: 09/15/18 Primary Care Provider: Pulmonary-Dr. Jessica Chief Complaint: Pneumonia and COPD Patient seen and examined at bedside with RN. Chart reviewed. Case discussed with pulmonology. Improving but still weak and SOB. Does Work with PT but Limited due to SOB and generalized weakness. Improving however. Review of Systems 10-point ROS is otherwise unremarkable Physical Examination - Vital Signs Temperature: 98.9 F Blood Pressure: 101/69 Pulse: 98 Respirations: 20 Pulse Ox (%): 89 - Physical Exam General: Alert, Mild distress HEENT: Atraumatic, PERRLA, EOMI Neck: Supple, JVD not distended Respiratory: Normal air movement, Expiratory wheezes, Inspiratory wheezes Cardiovascular: Regular rate/rhythm, Normal S1 S2 Gastrointestinal: Normal bowel sounds, No tenderness Musculoskeletal: No tenderness Integumentary: No rashes Neurological: Normal speech, Normal tone, Normal affect Lymphatics: No axilla or inguinal lymphadenopathy - Studies Medications List Reviewed: Yes Assessment And Plan - Current Problems (Diagnosis) (1) Respiratory failure Onset Date: 09/03/18 Current Visit: No Status: Acute Plan: Acute respiratory failure with limited Resolutions -S/P Bronchoscopes at this time. BAL culture send. -ABG with Hypoxic Respiratory Failure most likely 2.2 to Pulmonary HTN vs PNA -currently weaned to a nasal cannula and BIPAP PRN. -patient does have home oxygenation -duonebs, steroids, theophylline Qualifiers: Chronicity: acute on chronic Respiratory failure complication: hypoxia and hypercapnia Qualified Code(s): J96.21 - Acute and chronic respiratory failure with hypoxia; J96.22 - Acute and chronic respiratory failure with hypercapnia (2) Right lower lobe pneumonia Onset Date: 09/03/18 Current Visit: Yes Status: Acute Plan: Right lower pneumonia on chest x-ray and Hemopytosis now -S/P bronch. BAL culture collected. Most likely PNA per pulmonology -Switched to Doxycycline and IV meropenum -Will need for total of 2 weeks -PICC line Ordered Qualifiers: Pneumonia type: due to unspecified organism Qualified Code(s): J18.1 - Lobar pneumonia, unspecified organism (3) Acute exacerbation of chronic obstructive pulmonary disease (COPD) Onset Date: 09/03/18 Current Visit: No Status: Acute Plan: Acute on chronic COPD exacerbation most likely secondary to pneumonia. -duo nebs, steroids, BiPAP p.r.n. at this time -pulmonology consulted. Recommendation appreciated at this time (4) Pulmonary hypertension Current Visit: Yes Status: Chronic Plan: See # 1 (5) CAD (coronary artery disease) Current Visit: Yes Status: Chronic Qualifiers: Coronary Disease-Associated Artery/Lesion type: [place] artery [place] vs. transplanted heart: [place] heart Associated angina: without angina Qualified Code(s): I25.10 - Atherosclerotic heart disease of [place] coronary artery without angina pectoris (6) GERD (gastroesophageal reflux disease) Current Visit: Yes Status: Chronic Qualifiers: Esophagitis presence: without esophagitis Qualified Code(s): K21.9 - Gastro -esophageal reflux disease without esophagitis - Plan The patient is currently pending Placement. PICC line Ordered. IV abx for 2 weeks needed Discharge Plan: Other Plan to discharge in: 48 Hours - Code Status/Comfort Care Code Status Assessed: Yes Critical Care: No
--- NOTE | 2018-09-15 11:04 | P.PN ---
Subjective Date of Service: 09/15/18 Primary Care Provider: Pulmonary-Dr. Jessica Chief Complaint: Pneumonia and COPD Patient states that he is doing a little bit better hemoptysis has declined no other complaints Review of Systems General: Weakness Respiratory: Cough, Shortness of Breath, Hemoptysis Physical Examination - Vital Signs Temperature: 98.9 F Blood Pressure: 101/69 Pulse: 98 Respirations: 20 Pulse Ox (%): 89 - Physical Exam General: Alert, Oriented x3 HEENT: Atraumatic Neck: Supple Respiratory: Crackles/rales (Crackles on the right side) - Studies Medications List Reviewed: Yes Assessment & Plan - Problems (Diagnosis) (1) Pneumonia Onset Date: 09/03/18 Current Visit: No Status: Acute Plan: Patient is 77 years of age admitted with pneumonia hemoptysis is bronchoscopy was normal cytology so far is negative for cancer microorganisms visible id pending cultures were sent on the BAL continue with meropenem poly need 2 weeks of IV therapy he has improved continue with doxycycline white count is slowly declining vital signs improved discharged home on a IV therapy Qualifiers: Aspiration pneumonia type: unspecified (2) Respiratory failure with hypoxia and hypercapnia Current Visit: Yes Status: Acute Plan: Patient has hypoxic hypercapnic respiratory failure currently on BiPAP titrate sat to 90% monitored in the ICU Physician Review Additional Text: Impression: Acute on chronic respiratory failure with hypercapnia secondary to COPD exacerbation and right lower lobe pneumonia Severe Pulmonary Hypertension Hyperlipidemia Hypomagnesia CAD GERD Plan: Acute on chronic respiratory failure with hypercapnia, hypoxia secondary to COPD exacerbation and right lower lobe pneumonia: Patient continues to slowly improved. Will continue to wean off oxygen. Antibiotics adjusted by pulmonology. Now on Augmentin and doxycycline. Patient will continue with antibiotic treatment for 2 weeks. Will have physical therapy continue to assess and slowly exercise. director of patient financial services working to send patient to high level skilled facility to continue his care. Pulmonology discuss the possibility of bronchoscopy in the future. Due to his chronic condition this may not be able to be done. Pulmonology to continue to further monitor. Await acceptance to skilled facility. I will decrease prednisone to once daily. I will turn the service over to Dr. Ma tomorrow. I will go over the plan of care with her. Pulmonary Hypertension: Labetalol discontinued due to low blood pressure. Will provide hydralazine as needed. No need for blood pressure medication at this time. ECHO shows severe pulmonary HTN. Patient currently on Lasix. Will continue to monitor and adjust. Hyperlipidemia: Continue with medication and adjust appropriately. Hypomagnesia: Continue with replacement therapy. Will continue monitor. CAD: Continue with Plavix. Patient on DVT prophylaxis. GERD: Will continue to provide Protonix.
[2018-09-15] MEDS: ACETAMINOPHEN 500 MG TAB PO PRN (11:13)
[2018-09-15] MEDS ORDERED: MAGNESIUM SULFATE 1 gm IVPB 1 GM/100 ML BAG IV ONE (12:45)
[2018-09-15] MEDS ORDERED: POTASSIUM 25 MEQ EFFERV TAB PO ONE (14:00)
--- NOTE | 2018-09-15 17:49 | RAD REPORT ---
EXAM DESCRIPTION: RAD - Chest Single View - 09/15/2018 5:35 pm CLINICAL HISTORY: Device placement PICC line placement IMPRESSION: PICC line with its tip in the mid superior vena cava
[2018-09-15] MEDS: ATORVASTATIN 10 MG TAB PO SCH (22:57)
[2018-09-16] MEDS: Meropenem 1,000 MG in NA CHLORIDE 0.9% 100 ML IV SCH ×3 (01:51→17:22)
[2018-09-16] MEDS: ACETAMINOPHEN 500 MG TAB PO PRN (02:07)
[2018-09-16] MEDS: PANTOPRAZOLE 40MG TABLET PO SCH (06:38)
[2018-09-16 06:56] LABS: Bicarbonate 36 mmol/L (21-32); Potassium 3.5 mmol/L (3.5-5.1); Sodium Level 138 mmol/L (136-145)
[2018-09-16 06:57] LABS: BUN Blood Urea Nitrogen 11 mg/dL (7-18); Glucose Level 131 mg/dL (74-106)
[2018-09-16] MEDS: FENOFIBRATE 48 MG TAB PO SCH (08:27)
[2018-09-16] MEDS: THEOPHYLLINE SR 100 MG TAB PO SCH ×2 (08:27→20:59)
[2018-09-16] MEDS: predniSONE 10 MG TAB PO SCH (08:28)
[2018-09-16] MEDS: GUAIFENESIN 600 MG SA TAB PO SCH ×2 (08:28→20:58)
[2018-09-16] MEDS: FUROSEMIDE 20 MG TABLET PO SCH ×2 (08:28→17:20)
[2018-09-16] MEDS: VITAMIN D 5,000 UNIT CAP PO SCH (08:28)
[2018-09-16] MEDS: DOXYCYCLINE 100 MG CAP PO SCH ×2 (08:30→20:58)
[2018-09-16] MEDS: NYSTATIN 500,000 UNIT/5 ML UDC PO SCH ×4 (08:30→20:58)
[2018-09-16 08:39] LABS: Hematocrit 39.9 % (39.6-49.0); MPV 7.4 fL (7.6-11.3); RBC Red Blood Cell Count 4.34 M/uL (4.33-5.43)
[2018-09-16] MEDS: IPRATROPIUM BROM 0.5MG/2.5ML NEB PRN (10:59)
[2018-09-16] MEDS ORDERED: KCL 20 MEQ/100 mL IVPB 20 MEQ/100 ML BAG IV SCH (11:00)
--- NOTE | 2018-09-16 14:06 | P.PN ---
Subjective Date of Service: 09/16/18 Primary Care Provider: Pulmonary-Dr. Jessica Chief Complaint: Pneumonia and COPD Patient seen and examined at bedside with RN. Chart reviewed. Case discussed with pulmonology. Improving but still weak and SOB. Does Work with PT but Limited due to SOB and generalized weakness. Improving however. Review of Systems 10-point ROS is otherwise unremarkable Physical Examination - Vital Signs Temperature: 98.7 F Blood Pressure: 91/64 Pulse: 101 Respirations: 20 Pulse Ox (%): 89 - Physical Exam General: Alert, Mild distress HEENT: Atraumatic, PERRLA, EOMI Neck: Supple, JVD not distended Respiratory: Normal air movement, Expiratory wheezes, Inspiratory wheezes Cardiovascular: Regular rate/rhythm, Normal S1 S2 Gastrointestinal: Normal bowel sounds, No tenderness Musculoskeletal: No tenderness Integumentary: No rashes Neurological: Normal speech, Normal tone, Normal affect Lymphatics: No axilla or inguinal lymphadenopathy - Studies Medications List Reviewed: Yes Assessment And Plan - Current Problems (Diagnosis) (1) Respiratory failure Onset Date: 09/03/18 Current Visit: No Status: Acute Plan: Acute respiratory failure with limited Resolutions -S/P Bronchoscopes at this time. BAL culture send. -ABG with Hypoxic Respiratory Failure most likely 2.2 to Pulmonary HTN vs PNA -currently weaned to a nasal cannula and BIPAP PRN. -patient does have home oxygenation -duonebs, steroids, theophylline Qualifiers: Chronicity: acute on chronic Respiratory failure complication: hypoxia and hypercapnia Qualified Code(s): J96.21 - Acute and chronic respiratory failure with hypoxia; J96.22 - Acute and chronic respiratory failure with hypercapnia (2) Right lower lobe pneumonia Onset Date: 09/03/18 Current Visit: Yes Status: Acute Plan: Right lower pneumonia on chest x-ray and Hemopytosis now -S/P bronch. BAL culture collected. Most likely PNA per pulmonology -Switched to Doxycycline 06/08 and IV meropenum 12/06 -Will need for total of 2 weeks -PICC line Ordered Qualifiers: Pneumonia type: due to unspecified organism Qualified Code(s): J18.1 - Lobar pneumonia, unspecified organism (3) Acute exacerbation of chronic obstructive pulmonary disease (COPD) Onset Date: 09/03/18 Current Visit: No Status: Acute Plan: Acute on chronic COPD exacerbation most likely secondary to pneumonia. -duo nebs, steroids, BiPAP p.r.n. at this time -pulmonology consulted. Recommendation appreciated at this time (4) Pulmonary hypertension Current Visit: Yes Status: Chronic Plan: See # 1 (5) CAD (coronary artery disease) Current Visit: Yes Status: Chronic Qualifiers: Coronary Disease-Associated Artery/Lesion type: [place] artery [place] vs. transplanted heart: [place] heart Associated angina: without angina Qualified Code(s): I25.10 - Atherosclerotic heart disease of [place] coronary artery without angina pectoris (6) GERD (gastroesophageal reflux disease) Current Visit: Yes Status: Chronic Qualifiers: Esophagitis presence: without esophagitis Qualified Code(s): K21.9 - Gastro -esophageal reflux disease without esophagitis - Plan The patient is currently pending Placement. PICC line Ordered. IV abx for 2 weeks needed
[2018-09-16] MEDS: ATORVASTATIN 10 MG TAB PO SCH (20:58)
[2018-09-17] MEDS: PANTOPRAZOLE 40MG TABLET PO SCH (05:05)
[2018-09-17 05:29] LABS: Hematocrit 39.2 % (39.6-49.0); RBC Red Blood Cell Count 4.28 M/uL (4.33-5.43)
[2018-09-17 05:48] LABS: BUN Blood Urea Nitrogen 12 mg/dL (7-18); Bicarbonate 36 mmol/L (21-32); Glucose Level 124 mg/dL (74-106); Potassium 3.8 mmol/L (3.5-5.1); Sodium Level 137 mmol/L (136-145)
[2018-09-17] MEDS: IPRATROPIUM BROM 0.5MG/2.5ML NEB PRN (07:37)
[2018-09-17] MEDS ORDERED: KCL 20 MEQ/100 mL IVPB 20 MEQ/100 ML BAG IV SCH (08:00)
[2018-09-17] MEDS: Meropenem 1,000 MG in NA CHLORIDE 0.9% 100 ML IV SCH ×4 (09:01→16:24)
[2018-09-17] MEDS: DOXYCYCLINE 100 MG CAP PO SCH ×2 (09:02→20:31)
[2018-09-17] MEDS: FUROSEMIDE 20 MG TABLET PO SCH ×2 (09:02→16:24)
[2018-09-17] MEDS: FENOFIBRATE 48 MG TAB PO SCH (09:02)
[2018-09-17] MEDS: NYSTATIN 500,000 UNIT/5 ML UDC PO SCH ×4 (09:02→20:31)
[2018-09-17] MEDS: GUAIFENESIN 600 MG SA TAB PO SCH ×2 (09:03→20:31)
[2018-09-17] MEDS: predniSONE 10 MG TAB PO SCH (09:03)
[2018-09-17] MEDS: THEOPHYLLINE SR 100 MG TAB PO SCH ×2 (09:03→21:59)
[2018-09-17] MEDS: VITAMIN D 5,000 UNIT CAP PO SCH (09:03)
--- NOTE | 2018-09-17 11:29 | P.PN ---
Subjective Date of Service: 09/17/18 Primary Care Provider: Pulmonary-Dr. Jessica Chief Complaint: Pneumonia and COPD Patient seen and examined at bedside with RN. Chart reviewed. Case discussed with pulmonology. Improving but still weak and SOB. Does Work with PT but Limited due to SOB and generalized weakness. Still requiring BIPAP PRN. Review of Systems 10-point ROS is otherwise unremarkable Physical Examination - Vital Signs Temperature: 98.9 F Blood Pressure: 110/62 Pulse: 95 Respirations: 20 Pulse Ox (%): 95 - Physical Exam General: Alert, In no apparent distress HEENT: Atraumatic, PERRLA, EOMI Neck: Supple, JVD not distended Respiratory: Normal air movement, Expiratory wheezes, Inspiratory wheezes Cardiovascular: Regular rate/rhythm, Normal S1 S2 Gastrointestinal: Normal bowel sounds, No tenderness Musculoskeletal: No tenderness Integumentary: No rashes Neurological: Normal speech, Normal tone, Normal affect Lymphatics: No axilla or inguinal lymphadenopathy - Studies Medications List Reviewed: Yes Assessment And Plan - Current Problems (Diagnosis) (1) Respiratory failure Onset Date: 09/03/18 Current Visit: No Status: Acute Plan: Acute respiratory failure with limited Resolutions -S/P Bronchoscopes at this time. BAL culture send. Negative thus far -ABG with Hypoxic Respiratory Failure most likely 2.2 to Pulmonary HTN vs PNA -currently weaned to a nasal cannula and BIPAP PRN. -patient does have home oxygenation -duonebs, steroids, theophylline Qualifiers: Chronicity: acute on chronic Respiratory failure complication: hypoxia and hypercapnia Qualified Code(s): J96.21 - Acute and chronic respiratory failure with hypoxia; J96.22 - Acute and chronic respiratory failure with hypercapnia (2) Right lower lobe pneumonia Onset Date: 09/03/18 Current Visit: Yes Status: Acute Plan: Right lower pneumonia on chest x-ray and Hemopytosis now -S/P bronch. BAL culture collected. Most likely PNA per pulmonology -Switched to Doxycycline 07/08 and IV meropenum 01/06 -Will need for total of 2 weeks -PICC line Placed Qualifiers: Pneumonia type: due to unspecified organism Qualified Code(s): J18.1 - Lobar pneumonia, unspecified organism (3) Acute exacerbation of chronic obstructive pulmonary disease (COPD) Onset Date: 09/03/18 Current Visit: No Status: Acute Plan: Acute on chronic COPD exacerbation most likely secondary to pneumonia. -duo nebs, steroids, BiPAP p.r.n. at this time -pulmonology consulted. Recommendation appreciated at this time (4) Pulmonary hypertension Current Visit: Yes Status: Chronic Plan: See # 1 (5) CAD (coronary artery disease) Current Visit: Yes Status: Chronic Qualifiers: Coronary Disease-Associated Artery/Lesion type: [place] artery [place] vs. transplanted heart: [place] heart Associated angina: without angina Qualified Code(s): I25.10 - Atherosclerotic heart disease of [place] coronary artery without angina pectoris (6) GERD (gastroesophageal reflux disease) Current Visit: Yes Status: Chronic Qualifiers: Esophagitis presence: without esophagitis Qualified Code(s): K21.9 - Gastro -esophageal reflux disease without esophagitis - Plan The patient is currently pending Placement to High level SNF. Picc Placed. Will need 2 week of IV abx. Doxycycline 07/08 and Meropenum 01/06. Will Awaiting insurance Approval. Discharge Plan: Home Plan to discharge in: 48 Hours - Code Status/Comfort Care Code Status Assessed: Yes Critical Care: No
[2018-09-17] MEDS: ACETAMINOPHEN 500 MG TAB PO PRN ×2 (14:30→20:32)
[2018-09-17] MEDS: ATORVASTATIN 10 MG TAB PO SCH (20:31)
[2018-09-18] MEDS: Meropenem 1,000 MG in NA CHLORIDE 0.9% 100 ML IV SCH ×3 (01:25→17:00)
[2018-09-18 05:26] LABS: BUN Blood Urea Nitrogen 11 mg/dL (7-18); Bicarbonate 36 mmol/L (21-32); Glucose Level 104 mg/dL (74-106); Potassium 3.4 mmol/L (3.5-5.1); Sodium Level 137 mmol/L (136-145)
[2018-09-18] MEDS: PANTOPRAZOLE 40MG TABLET PO SCH (05:38)
[2018-09-18] MEDS ORDERED: POTASSIUM 25 MEQ EFFERV TAB PO ONE (05:47)
[2018-09-18] MEDS: NYSTATIN 500,000 UNIT/5 ML UDC PO SCH ×4 (08:14→22:10)
[2018-09-18] MEDS: THEOPHYLLINE SR 100 MG TAB PO SCH ×2 (08:15→20:31)
[2018-09-18] MEDS: predniSONE 10 MG TAB PO SCH (08:15)
[2018-09-18] MEDS: DOXYCYCLINE 100 MG CAP PO SCH (08:15)
[2018-09-18] MEDS: VITAMIN D 5,000 UNIT CAP PO SCH (08:15)
[2018-09-18] MEDS: FENOFIBRATE 48 MG TAB PO SCH (08:15)
[2018-09-18] MEDS: GUAIFENESIN 600 MG SA TAB PO SCH ×2 (08:15→20:30)
[2018-09-18] MEDS: FUROSEMIDE 20 MG TABLET PO SCH ×2 (08:15→17:43)
--- NOTE | 2018-09-18 11:24 | P.PN ---
Subjective Date of Service: 09/18/18 Primary Care Provider: Pulmonary-Dr. Jessica Chief Complaint: Pneumonia and COPD Patient seen and examined at bedside with RN. Chart reviewed. Case discussed with pulmonology. Improving but still weak and SOB. Does Work with PT but Limited due to SOB and generalized weakness. Still requiring BIPAP PRN. Pending SNF placement. BAL culture + for Staph Auricularis Review of Systems 10-point ROS is otherwise unremarkable Physical Examination - Vital Signs Temperature: 98.1 F Blood Pressure: 126/80 Pulse: 80 Respirations: 24 Pulse Ox (%): 89 - Physical Exam General: Alert, In no apparent distress HEENT: Atraumatic, PERRLA, EOMI Neck: Supple, JVD not distended Respiratory: Normal air movement, Expiratory wheezes, Inspiratory wheezes Cardiovascular: Regular rate/rhythm, Normal S1 S2 Gastrointestinal: Normal bowel sounds, No tenderness Musculoskeletal: No tenderness Integumentary: No rashes Neurological: Normal speech, Normal tone, Normal affect Lymphatics: No axilla or inguinal lymphadenopathy - Studies Medications List Reviewed: Yes Assessment And Plan - Current Problems (Diagnosis) (1) Respiratory failure Onset Date: 09/03/18 Current Visit: No Status: Acute Plan: Acute respiratory failure with limited Resolutions. Improving slowly -S/P Bronchoscopes at this time. BAL culture + for Staph Auricularis today -ABG with Hypoxic Respiratory Failure most likely 2.2 to PNA -currently weaned to a nasal cannula and BIPAP PRN. -patient does have home oxygenation -duonebs, steroids, theophylline -Pulmonology consulted. Appreciated reccs Qualifiers: Chronicity: acute on chronic Respiratory failure complication: hypoxia and hypercapnia Qualified Code(s): J96.21 - Acute and chronic respiratory failure with hypoxia; J96.22 - Acute and chronic respiratory failure with hypercapnia (2) Right lower lobe pneumonia Onset Date: 09/03/18 Current Visit: Yes Status: Acute Plan: Right lower pneumonia on chest x-ray and Hemopytosis now -S/P bronch. BAL culture collected. + for staph Auricularis. -On Doxycycline 07/08 and IV meropenum 01/06. -Will discuss with Pulmonology regarding switching the abx to vancomycin. -Will need for total of 2 weeks -PICC line Placed Qualifiers: Pneumonia type: due to unspecified organism Qualified Code(s): J18.1 - Lobar pneumonia, unspecified organism (3) Acute exacerbation of chronic obstructive pulmonary disease (COPD) Onset Date: 09/03/18 Current Visit: No Status: Acute Plan: Acute on chronic COPD exacerbation most likely secondary to pneumonia. -duo nebs, steroids, BiPAP p.r.n. at this time -pulmonology consulted. Recommendation appreciated at this time (4) Pulmonary hypertension Current Visit: Yes Status: Chronic Plan: See # 1 (5) CAD (coronary artery disease) Current Visit: Yes Status: Chronic Qualifiers: Coronary Disease-Associated Artery/Lesion type: [place] artery [place] vs. transplanted heart: [place] heart Associated angina: without angina Qualified Code(s): I25.10 - Atherosclerotic heart disease of [place] coronary artery without angina pectoris (6) GERD (gastroesophageal reflux disease) Current Visit: Yes Status: Chronic Qualifiers: Esophagitis presence: without esophagitis Qualified Code(s): K21.9 - Gastro -esophageal reflux disease without esophagitis - Plan The patient is currently pending Placement to High level SNF. Picc Placed. Will need 2 week of IV abx. Currently on Doxycycline 07/08 and Meropenum 01/06. Will discuss with pulmonology regarding change of Abx to cover for staph Auricularis. Will Await insurance Approval for SNF. Discharge Plan: Other Plan to discharge in: Greater than 2 days - Code Status/Comfort Care Code Status Assessed: Yes Critical Care: No
[2018-09-18] MEDS ORDERED: Pharmacy Consult 1 EA XX PRN (11:25)
--- NOTE | 2018-09-18 11:28 | P.PN ---
Subjective Date of Service: 09/18/18 Primary Care Provider: Pulmonary-Dr. Jesisca Chief Complaint: Pneumonia and COPD No change he still feels very weak refuses to ambulate hemoptysis is declining denies any fever or chills Review of Systems General: Weakness Respiratory: Shortness of Breath Physical Examination - Vital Signs Temperature: 98.1 F Blood Pressure: 126/80 Pulse: 80 Respirations: 24 Pulse Ox (%): 89 - Physical Exam General: Alert, Mild distress Neck: Supple Respiratory: Diminished Cardiovascular: No edema, Regular rate/rhythm, Normal S1 S2 - Studies Medications List Reviewed: Yes Assessment & Plan - Problems (Diagnosis) (1) Pneumonia Onset Date: 09/03/18 Current Visit: No Status: Acute Plan: Patient is 77 years of age admitted with a pneumonia bronchoscopy isolated staphylococcal auricularis is coagulase negative organism is an unusual organism however as per pathology he has numerous organisms on the tissue biopsy will treat him with vancomycin continue with meropenem white count was declining repeat pending patient continues to remain hypoxic he has terminal COPD Dc doxycycline Qualifiers: Aspiration pneumonia type: unspecified (2) Respiratory failure with hypoxia and hypercapnia Current Visit: Yes Status: Acute Plan: Patient has hypoxic hypercapnic respiratory failure currently on BiPAP titrate sat to 90% monitored in the ICU Physician Review Additional Text: Impression: Acute on chronic respiratory failure with hypercapnia secondary to COPD exacerbation and right lower lobe pneumonia Severe Pulmonary Hypertension Hyperlipidemia Hypomagnesia CAD GERD Plan: Acute on chronic respiratory failure with hypercapnia, hypoxia secondary to COPD exacerbation and right lower lobe pneumonia: Patient continues to slowly improved. Will continue to wean off oxygen. Antibiotics adjusted by pulmonology. Now on Augmentin and doxycycline. Patient will continue with antibiotic treatment for 2 weeks. Will have physical therapy continue to assess and slowly exercise. consulting services associate working to send patient to high level skilled facility to continue his care. Pulmonology discuss the possibility of bronchoscopy in the future. Due to his chronic condition this may not be able to be done. Pulmonology to continue to further monitor. Await acceptance to skilled facility. I will decrease prednisone to once daily. I will turn the service over to Dr. Ma tomorrow. I will go over the plan of care with her. Pulmonary Hypertension: Labetalol discontinued due to low blood pressure. Will provide hydralazine as needed. No need for blood pressure medication at this time. ECHO shows severe pulmonary HTN. Patient currently on Lasix. Will continue to monitor and adjust. Hyperlipidemia: Continue with medication and adjust appropriately. Hypomagnesia: Continue with replacement therapy. Will continue monitor. CAD: Continue with Plavix. Patient on DVT prophylaxis. GERD: Will continue to provide Protonix.
--- NOTE | 2018-09-18 12:02 | RAD REPORT ---
EXAM DESCRIPTION: [place] Pa And Lat (2 Views)09/18/2018 11:53 am CLINICAL HISTORY: Cough COMPARISON: September 15 FINDINGS: Right lung opacities have mildly improved. No other change is noted IMPRESSION: Mild improvement in a right pneumonia
[2018-09-18 12:47] LABS: Absolute Lymphocytes (CBC) 1.7 K/uL (0.7-4.9); Absolute Monocytes 1.3 K/uL (0.1-1.3); Absolute Neutrophil 16.5 K/uL (1.8-8.0); Basophils % 0.3 % (0-1.3); Eosinophils % 0.1 % (0-4.4); Hematocrit 44.8 % (39.6-49.0); Lymphocytes % 8.7 % (15.3-44.8); MPV 7.7 fL (7.6-11.3); Monocytes % 6.7 % (3.3-12.3)
[2018-09-18] MEDS ORDERED: VANCOMYCIN 1.75 GM in NA CHLORIDE 0.9% 500 ML IVPB ONE (13:00)
[2018-09-18 14:34] LABS: Blood Morphology Comment NOT SEEN (NOT SEEN); Urine White Blood Cell Casts OK
[2018-09-18 14:35] LABS: Platelet Estimate INCR
[2018-09-18] MEDS: ATORVASTATIN 10 MG TAB PO SCH (20:30)
[2018-09-18] MEDS ORDERED: LABETALOL HCL 100 MG TAB PO ONE (21:54)
[2018-09-18 22:08] LABS: Magnesium 1.6 mg/dL (1.8-2.4); Potassium 3.7 mmol/L (3.5-5.1)
[2018-09-18] MEDS: ACETAMINOPHEN 500 MG TAB PO PRN (23:33)
[2018-09-19] MEDS ORDERED: POTASSIUM 25 MEQ EFFERV TAB PO ONE (00:53)
[2018-09-19] MEDS ORDERED: MAGNESIUM SULFATE 1 gm IVPB 1 GM/100 ML BAG IV ONE (00:54)
[2018-09-19] MEDS: VANCOMYCIN 1.25 GM in NA CHLORIDE 0.9% 250 ML IVPB SCH ×2 (02:04→13:00)
[2018-09-19] MEDS: Meropenem 1,000 MG in NA CHLORIDE 0.9% 100 ML IV SCH ×2 (02:35→09:45)
[2018-09-19] MEDS: ACETAMINOPHEN 500 MG TAB PO PRN ×2 (03:12→09:46)
[2018-09-19] MEDS: PANTOPRAZOLE 40MG TABLET PO SCH (06:23)
[2018-09-19 07:03] LABS: BUN Blood Urea Nitrogen 11 mg/dL (7-18); Bicarbonate 38 mmol/L (21-32); Glucose Level 119 mg/dL (74-106); Magnesium 2.2 mg/dL (1.8-2.4); Sodium Level 138 mmol/L (136-145)
[2018-09-19] MEDS ORDERED: CLOPIDOGREL 75 MG TABLET PO SCH (09:00)
[2018-09-19] MEDS ORDERED: LABETALOL HCL 100 MG TAB PO SCH (09:00)
[2018-09-19] MEDS: THEOPHYLLINE SR 100 MG TAB PO SCH (09:46)
[2018-09-19] MEDS: FENOFIBRATE 48 MG TAB PO SCH (09:46)
[2018-09-19] MEDS: VITAMIN D 5,000 UNIT CAP PO SCH (09:48)
[2018-09-19] MEDS: NYSTATIN 500,000 UNIT/5 ML UDC PO SCH ×2 (09:48→13:00)
[2018-09-19] MEDS: predniSONE 10 MG TAB PO SCH (09:49)
[2018-09-19] MEDS: GUAIFENESIN 600 MG SA TAB PO SCH (09:49)
[2018-09-19] MEDS: FUROSEMIDE 20 MG TABLET PO SCH (09:49)
--- NOTE | 2018-09-19 11:01 | P.DS ---
Admission Date: 09/02/18 Discharge Date: 09/19/18 Primary Care Provider: Dr. Carrera; Pulmonary-Dr. Jessica Disposition: TRANSFER TO SNF - MEDICAL Discharge Condition: GOOD Reason for Admission: Pneumonia and COPD Consultations: Pulmonary-Dr. Jessica Procedures: CXR: COMPARISON: Chest Single View dated 08/30/2018; Chest Single View dated 2017; Chest Single View dated 03/09/2018 FINDINGS: Portable technique limits examination quality. Prominent COPD is present a small opacity has developed since the prior study in the right mid lung laterally compatible with pneumonia. The heart is normal in size. No displaced fractures. IMPRESSION: Prominent COPD with developing pneumonia in the right mid lung laterally. CT scan: COMPARISON: None TECHNIQUE: Computed axial tomography of the chest was obtained. 100 cc Isovue 300 was administered intravenously. All CT scans are performed using dose optimization technique as appropriate and may include automated exposure control or mA/KV adjustment according to patient size. FINDINGS: 8 x 1.7 centimeter right upper lobe consolidation is present laterally. Moderate right lower lobe opacities. Minimal left upper lobe opacity No mediastinal or hilar lymphadenopathy is seen. A minimal right pleural effusion is present. . A pericardial effusion is not seen. IMPRESSION: Right lung pneumonia Follow up CXR: COMPARISON: September 15 FINDINGS: Right lung opacities have mildly improved. No other change is noted IMPRESSION: Mild improvement in a right pneumonia ECHO: EF-63% LEFT VENTRICULAR WALL MOTION: PARADOXICAL SEPTAL MOTION DOPPLER/COLOR FLOW: MILD TO MODERATE TRICUSPID REGURGITATION. SEVERE PULMONARY HYPERTENSION. ESTIMATED RIGHT VENTRICULAR SYSTOLIC PRESURE > 60 mmHg. COMMENTS: NORMAL LEFT VENTRICULAR EJECTION FRACTION. DILATED LEFT AND RIGHT ATRIUM. PARACARDIAL EFFUSION. MILD TO MODERATE TRICUSPID REGURGITATION. SEVERE PULMONARY HYPERTENSION Procedure: Brochoscopy-Done 09/14/2018,, biopsy taken Medical Problem List: Acute on chronic respiratory failure with hypoxia, hypercapnia secondary to COPD exacerbation and complicated right lower lobe pneumonia with noted hemoptysis status post bronchoscopy with culture positive for Staph auricularis Severe Pulmonary Hypertension Oral candidiasis Hyperlipidemia Hypomagnesia CAD GERD Brief History of Present Illness: 77-year-old male with chronic terminal COPD. Patient came in with acute shortness of breath found to be hypercapnic and hypoxic. Patient found to have COPD exacerbation with a right sided pneumonia. Patient was admitted for further treatment. Hospital Course: Patient presented with acute on chronic respiratory failure with hypercapnia, hypoxia secondary to COPD exacerbation and right lower lobe pneumonia. The course of his hospitalization was complicated. Patient also had hemoptysis. Patient was seen and evaluated by pulmonology. Patient continue with antibiotic therapy without significant improvement. Patient eventually had bronchoscopy. Patient tolerated procedure well. Culture was positive for Staph auricularis. This is an atypical bacteria. Pulmonology recommended to continue with IV antibiotic therapy. Patient continued often on with BiPAP. Patient not able to go home. Patient was accepted to go to a high-level skilled facility. At discharge patient will go to a high-level skilled facility to continue his care. Recommendation was to continue with meropenem 1 g IV 3 times a day and vancomycin 1.25 g IV twice daily for a total of 14 days. Antibiotics will need to be monitored closely by pharmacy or by skilled facility physician. Recommend to monitor lab-BMP and vancomycin levels closely. For his COPD patient will continue with prednisone 10 mg daily, Brovana 1 unit dose twice daily, albuterol/Atrovent 1 unit dose 3 times a day as needed for shortness of breath and Ranjit-Dur 100 mg daily. Patient has terminal COPD. Patient will continue with BiPAP often on. Patient to continue with oxygen to maintain sats above 90%. Patient will continue with physical therapy at skilled facility. Patient may eventually require long-term care- correction placement. Patient will need a follow up with pulmonology as an outpatient to further monitor. Pathology biopsy report pending at discharge. This can be followed up at the skilled facility. Patient found to have severe pulmonary hypertension. Patient will continue with 1500 cc per day fluid restriction and low-salt diet. Patient also started and will continue with Lasix 20 mg 1 pill twice daily. Patient not able to tolerate previous medication of labetalol. This was discontinued. Patient to continue to monitor blood pressures closely. Recommendation to maintain blood pressures less 150/80. Further adjustment can be done by his PCP or skilled facility doctor. Patient has hyperlipidemia. Patient will continue with his medication of fenofibrate 48 mg daily and pravastatin 40 mg daily. Patient has GERD. Patient will continue with Protonix 40 mg 1 pill daily. Patient likely has underlying oral candidiasis. At discharge he will continue with nystatin 500 units 3 times a day for 1 week. Patient with underlying CAD. At discharge patient will continue with Plavix 75 mg daily. Patient may follow up with cardiology as an outpatient to further address. Vital Signs/Physical Exam: Temp Pulse Resp BP Pulse Ox 97.8 F 88 18 97/63 96 09/19/18 08:00 09/19/18 09:49 09/19/18 08:00 09/19/18 09:49 09/19/18 08:00 General: Alert, In no apparent distress, Oriented x3, Cooperative HEENT: Atraumatic Neck: Supple Respiratory: Expiratory wheezes, Inspiratory wheezes Cardiovascular: Normal pulses, Regular rate/rhythm Gastrointestinal: Normal bowel sounds, Soft and benign, Non-distended, No tenderness, No masses, No rebound, No guarding Musculoskeletal: No erythema, No tenderness, No warmth Integumentary: No erythema, No warmth, No cyanosis Neurological: Normal speech, Normal strength at 5/5 x4 extr, Normal tone, Normal affect Lymphatics: No axilla or inguinal lymphadenopathy Laboratory Data at Discharge: WBC 19.6 K/uL (4.3-10.9) H D 09/18/18 12:00 Hgb 15.1 g/dL (13.6-17.9) 09/18/18 12:00 Hct 44.8 % (39.6-49.0) 09/18/18 12:00 Plt Count 335 K/uL (152-406) 09/18/18 12:00 PT 13.4 SECONDS (9.5-12.5) H 09/13/18 06:40 INR 1.13 09/13/18 06:40 APTT 26.3 SECONDS (24.3-36.9) 09/13/18 06:40 Sodium 138 mmol/L (136-145) 09/19/18 06:20 Potassium 4.0 mmol/L (3.5-5.1) 09/19/18 06:20 BUN 11 mg/dL (7-18) 09/19/18 06:20 Creatinine 0.65 mg/dL (0.55-1.3) 09/19/18 06:20 Glucose 119 mg/dL (74-106) H 09/19/18 06:20 Phosphorus 2.5 mg/dL (2.5-4.9) 09/15/18 07:31 Magnesium 2.2 mg/dL (1.8-2.4) D 09/19/18 06:20 Total Bilirubin 0.7 mg/dL (0.2-1.0) 09/13/18 06:40 AST 14 U/L (15-37) L 09/13/18 06:40 ALT 31 U/L (12-78) 09/13/18 06:40 Alkaline Phosphatase 29 U/L (45-117) L 09/13/18 06:40 Triglycerides 90 mg/dL (<150) 09/03/18 03:38 Cholesterol 119 mg/dL (<200) 09/03/18 03:38 HDL Cholesterol 34 mg/dL (40-60) L 09/03/18 03:38 Cholesterol/HDL Ratio 3.50 09/03/18 03:38 Lipase 76 U/L (73-393) 09/02/18 03:25 Home Medications: Cholecalciferol (Vitamin D3) [Vitamin D3] 5,000 unit PO DAILY 09/02/18 Clopidogrel Bisulfate [Plavix*] 75 mg PO DAILY 09/02/18 Fenofibrate [Tricor*] 48 mg PO DAILY 09/02/18 Pravastatin Sodium 40 mg PO DAILY 09/02/18 Theophylline [Ranjit-Dur*] 100 mg PO DAILY 09/02/18 Albuterol Neb [Proventil 0.083% Neb Soln] 3 ml IH TID PRN #90 amp 09/19/18 Arformoterol Tartrate [Brovana] 2 ml NEB BIDRESP #60 vial.neb 09/19/18 Furosemide [Lasix*] 20 mg PO BIDL #60 tab 09/19/18 Ipratropium Neb [Atrovent*] 2.5 ml NEB TID PRN #90 amp 09/19/18 Nystatin 5 ml PO TID #1 bottle 09/19/18 Pantoprazole [Protonix Tab*] 40 mg PO DAILYAC #30 tab 09/19/18 predniSONE [Deltasone*] 10 mg PO DAILY #30 tab 09/19/18 New Medications: Albuterol Neb [Proventil 0.083% Neb Soln] 3 ml IH TID PRN #90 amp PRN Reason: Shortness Of Breath Arformoterol Tartrate [Brovana] 2 ml NEB BIDRESP #60 vial.neb Furosemide [Lasix*] 20 mg PO BIDL #60 tab Ipratropium Neb [Atrovent*] 2.5 ml NEB TID PRN #90 amp PRN Reason: Shortness Of Breath Nystatin 5 ml PO TID #1 bottle Pantoprazole [Protonix Tab*] 40 mg PO DAILYAC #30 tab predniSONE [Deltasone*] 10 mg PO DAILY #30 tab Patient Discharge Instructions: 1. Patient will be sent to skilled facility to continue his care. 2. Patient presented with acute on chronic respiratory failure with hypercapnia, hypoxia secondary to COPD exacerbation and right lower lobe pneumonia. The course of his hospitalization was complicated. Patient also had hemoptysis. Patient was seen and evaluated by pulmonology. Patient continue with antibiotic therapy without significant improvement. Patient eventually had bronchoscopy. Patient tolerated procedure well. Culture was positive for Staph auricularis. This is an atypical bacteria. Pulmonology recommended to continue with IV antibiotic therapy. Patient continued often on with BiPAP. Patient not able to go home. Patient was accepted to go to a high-level skilled facility. At discharge patient will go to a high-level skilled facility to continue his care. Recommendation was to continue with meropenem 1 g IV 3 times a day and vancomycin 1.25 g IV twice daily for a total of 14 days. Antibiotics will need to be monitored closely by pharmacy or by skilled facility physician. Recommend to monitor lab-BMP and vancomycin levels closely. For his COPD patient will continue with prednisone 10 mg daily, Brovana 1 unit dose twice daily, albuterol/Atrovent 1 unit dose 3 times a day as needed for shortness of breath and Ranjit-Dur 100 mg daily. Patient has terminal COPD. Patient will continue with BiPAP often on. Patient to continue with oxygen to maintain sats above 90%. Patient will continue with physical therapy at skilled facility. Patient may eventually require long-term care-correction placement. Patient will need a follow up with pulmonology as an outpatient to further monitor. Pathology biopsy report pending at discharge. This can be followed up at the skilled facility. 3. Patient found to have severe pulmonary hypertension. Patient will continue with 1500 cc per day fluid restriction and low-salt diet. Patient also started and will continue with Lasix 20 mg 1 pill twice daily. Patient not able to tolerate previous medication of labetalol. This was discontinued. Patient to continue to monitor blood pressures closely. Recommendation to maintain blood pressures less 150/80. Further adjustment can be done by his PCP or skilled facility doctor. 4. Patient has hyperlipidemia. Patient will continue with his medication of fenofibrate 48 mg daily and pravastatin 40 mg daily. 5. Patient has GERD. Patient will continue with Protonix 40 mg 1 pill daily. 6. Patient likely has underlying oral candidiasis. At discharge he will continue with nystatin 500 units 3 times a day for 1 week. 7. Patient with underlying CAD. At discharge patient will continue with Plavix 75 mg daily. Patient may follow up with cardiology as an outpatient to further address. Diet: AHA Activity: Fall precautions Followup: Cheko Jessica MD [ACTIVE - CAN ADMIT] - Hussain Carrera MD [Primary Care Provider] - Time spent managing pt's care (in minutes): 55
[2018-09-19 12:31] VITALS: O2SAT 96
[2018-09-19 13:31] VITALS: BP 90/58; TEMP 97.9
--- NOTE | 2018-09-19 14:37 | EKG ---
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
== END 2018-09-19 16:17 | DRG 166 ==
LOC: ER 02:48 → ERHOLD 06:20 → 4TH 07:44 → 3RD-ICU 09-04 15:05 → 4TH 09-07 11:36
PROVIDERS: ADMIT Hospitalist; ATTEND Family Medicine
PROC: 5A09557 Assistance with Respiratory Ventilation, Greater than 96 Consecutive Hours, Continuous Positive Airway Pressure (ICD-10-PCS; 2018-09-02)
PROC: 0B9F7ZX Drainage of Right Lower Lung Lobe, Via Natural or Artificial Opening, Diagnostic (ICD-10-PCS; 2018-09-14)
PROC: 0B9C7ZX Drainage of Right Upper Lung Lobe, Via Natural or Artificial Opening, Diagnostic (ICD-10-PCS; 2018-09-14)
PROC: 0BBC8ZX Excision of Right Upper Lung Lobe, Via Natural or Artificial Opening Endoscopic, Diagnostic (ICD-10-PCS; principal; 2018-09-14 07:15)
PROC: 02HV33Z Insertion of Infusion Device into Superior Vena Cava, Percutaneous Approach (ICD-10-PCS; 2018-09-15)
DX: J15.29 Pneumonia due to other staphylococcus (principal); J96.21 Acute and chronic respiratory failure with hypoxia; J96.22 Acute and chronic respiratory failure with hypercapnia; J44.0 Chronic obstructive pulmonary disease with (acute) lower respiratory infection; R04.2 Hemoptysis; B37.0 Candidal stomatitis; J44.1 Chronic obstructive pulmonary disease with (acute) exacerbation; I27.20 Pulmonary hypertension, unspecified; E78.5 Hyperlipidemia, unspecified; E83.42 Hypomagnesemia; I25.10 Atherosclerotic heart disease of native coronary artery without angina pectoris; K21.9 Gastro-esophageal reflux disease without esophagitis; I10 Essential (primary) hypertension; Z87.891 Personal history of nicotine dependence
CPT/HCPCS: 36415; 71045; 71046; 71260; 76000; 80048; 80053; 80061; 81003; 82805; 83605; 83690; 83735; 83880; 84100; 84132; 84145; 84484; 85025; 85027; 85610; 85730; 87015; 87040; 87070; 87077; 87116; 87186; 87205; 87206; 88108; 88305; 88312; 90670; 93005; 93306; 94640; 94660; 94760; 97110; 97116; 97530; 99285; G0009; J0696; J1650; J2001; J2370; J2543; J2704; J2930; J3475; J7030; J7512; J7605; Q9967